=== PATIENT | female | born 1935 | race Caucasian/White ===

== ENCOUNTER → 2024-12-17 | Outpatient (CLI) | payer MEDICARE, BC, SELFPAY ==
[2024-12-17 14:08] LABS: Basophils # (Auto) 0.1 Thou/mm3 (0.0-0.2); Basophils % (Auto) 1 % (0-2.5); Eosinophils # (Auto) 0.8 Thou/mm3 (0.0-0.5); Eosinophils % (Auto) 12 % (0-10); Hematocrit 41.7 % (36.0-46.0); Immature Granulocytes % (Auto) 1 % (0-0); Immature Granulocytes Auto 0.05 Thou/mm3 (0.00-0.00); Lymphocytes # (Auto) 1.1 Thou/mm3 (1.0-4.8); Lymphocytes % (Auto) 18 % (10-50); Mean Corpuscular HGB Conc 31.2 g/dl (31.0-37.0); Mean Corpuscular Hemoglobin 27.8 pg (25.0-35.0); Mean Corpuscular Volume 89 fL (80-100); Monocytes # (Auto) 0.4 Thou/mm3 (0.0-0.8); Monocytes % (Auto) 6 % (0-12); Neutrophils # (Auto) 3.9 Thou/mm3 (1.8-7.7); Neutrophils % (Auto) 62 % (37-80); Nucleated Red Blood Cell % 0 /100 WBC (0); Platelet Count 244 Thou/mm3 (140-440); RDW Standard Deviation 43.6 fL (36.4-46.3); Red Blood Count 4.68 Miln/mm3 (4.00-5.20); White Blood Count 6.2 Thou/mm3 (3.6-11.0)
[2024-12-17 14:18] LABS: Glucose Estimated Average 151 mg/dL (80-131); Hemoglobin A1C 6.9 % Hgb (4.8-6.0)
[2024-12-17 14:24] LABS: Alanine Aminotransferase 17 U/L (10-49); Albumin, Serum 3.7 gm/dL (3.4-4.8); Alkaline Phosphatase 60 U/L (46-116); Anion Gap 9 (7-16); Aspartate Amino Transferase 12 U/L (0-34); BUN/Creatinine Ratio 32 Ratio (12-20); Bilirubin,Total 0.4 mg/dL (0.3-1.2); Blood Urea Nitrogen 19 mg/dL (9-23); Calcium 9.3 mg/dL (8.3-10.6); Calcium (Corrected) 9.5 mg/dL (8.5-10.1); Carbon Dioxide 29.2 mMol/L (20.0-31.0); Cardiac Risk Estimate 5.2 RATIO (3.7-5.6); Chloride 103 mMol/L (98-107); Cholesterol 181 mg/dL (132-200); Creatinine (Component) 0.6 mg/dL (0.6-1.3); Globulin 3.8 gm/dL (2.3-3.5); Glucose 156 mg/dL (74-106); HDL Cholesterol 35 mg/dL (40-60); LDL Cholesterol,Calculated 111 mg/dL (0-130); Osmolality,Calculated 286 (275-295); Potassium 3.7 mMol/L (3.4-5.1); Sodium 141 mMol/L (136-145); Thyroid Stimulating Hormone 0.98 uIU/mL (0.55-4.78); Total Protein 7.5 gm/dL (5.7-8.2); Triglycerides 175 mg/dL (30-150); Uric Acid 6.2 mg/dL (3.1-7.8); eGFR > 60 See Note
[2024-12-17 14:25] LABS: Vitamin B12 1008 pg/mL (211-911); Vitamin D 25 Hydroxy Total 41.2 ng/mL (7.3-40.2)
== END | disposition home or self-care (01) ==
PROVIDERS: PCP Internal Medicine; Referring Provider Internal Medicine; Visit Provider Internal Medicine
DX: Z00.00 Encounter for general adult medical examination without abnormal findings (principal); I10 Essential (primary) hypertension; E03.9 Hypothyroidism, unspecified; E78.5 Hyperlipidemia, unspecified
CPT/HCPCS: 36415; 80053; 80061; 81001; 82306; 82607; 83036; 84443; 84550; 85025

== ENCOUNTER 2025-04-29 17:57 | Inpatient (IN) | payer MEDICARE, BC, SELFPAY ==
[2025-04-29] VITALS (7 sets, daily range): BP systolic 99–130; BP diastolic 46–60; PULSE 77–86; RESP 14–18; TEMP 36.9–37.1; O2SAT 93–99
--- NOTE | 2025-04-29 18:45 | PD.EDNV ---
Nausea/Vomit./Diarrhea-RME/HPI General Chief complaint: Nausea/Vomiting/Diarrhea Stated complaint: NAUSEA, VOMITING, DIARRHEA Time Seen by Provider: 04/29/25 18:50 Arrival date/time: 04/29/25 17:57 Limitations: no limitations RME / HPI RME / HPI Narrative: Dr. Paez's Main ED Evaluation: 89yo female SANJU from home presents to the ED for complaints of N/V/D x 2 days. at bedside states the patient has been unable to keep anything down for the last 2 days and has been dry heaving. Patient denies any abdominal pain, UTI symptoms, fever, chills, or any other associated symptoms. NKA. Related Data Home Medications ?Medication ?Instructions ?Recorded ?Confirmed solifenacin 10 mg tablet (Vesicare) 10 mg PO QDAY 05/20/19 03/12/22 chlorthalidone 25 mg tablet 1 tab PO QAM 03/12/22 03/12/22 glipizide 5 mg tablet 1 tab PO BID 03/12/22 03/12/22 levothyroxine 75 mcg tablet 1 tab PO QDAY 03/12/22 03/12/22 metoprolol succinate 50 mg 1 tab PO QDAY 03/12/22 03/12/22 tablet,extended release 24 hr pantoprazole 20 mg tablet,delayed 1 tab PO QDAY 03/12/22 03/12/22 release potassium chloride 20 mEq 1 tab PO QDAY 03/12/22 03/12/22 tablet,extended release pregabalin 75 mg capsule 1 cap PO QDAY 03/12/22 03/12/22 sertraline 25 mg tablet 1 tab PO QDAY 03/12/22 03/12/22 Allergies Allergy/AdvReac Type Severity Reaction Status Date / Time NKA* Allergy Uncoded 05/20/19 09:14 Review of Systems Review of Systems Systems Reviewed: All systems reviewed, normal except as documented Past Medical History Past Medical History CARDIAC: Positive Cardiac Disorders and Hypertension; Negative Congestive Heart Failure RESPIRATORY: Negative Chronic Obstructive Pulmonary Disease (COPD) or Asthma GENITOURINARY: Negative Renal Disease ENDOCRINE: Positive Hypothyroidism; Negative Diabetes Mellitus Type 1 or Diabetes Mellitus Type 2 HEMATOLOGIC: Negative Sickle Cell Disease Social History SMOKING STATUS: Never smoker SUBSTANCE USE: does not use ED Exam General Limitations: Present no limitations General appearance: Present alert, in no apparent distress and other (appears fatigued, chronically ill, talking in full sentences) Head Head exam: Present atraumatic Eye Eye exam: Present normal appearance, PERRL and EOMI ENT ENT exam: Present normal exam, normal oropharynx and mucous membranes dry Neck Neck exam: Present normal inspection, full ROM and trachea midline Chest Chest inspection: Present normal inspection and symmetric chest wall rise Respiratory Respiratory exam: Present normal lung sounds bilaterally Cardiovascular Cardiovascular exam: Present regular rate, normal rhythm and normal heart sounds Abdominal Exam Abdominal exam: Present soft; Absent distention or tenderness Extremities Exam Extremities exam: Present normal inspection and full ROM; Absent pedal edema Back Exam Back exam: Present normal inspection and full ROM Neurological Exam Neurological exam: Present alert, oriented X3 and CN II-XII intact Psychiatric Psychiatric exam: Present normal affect and normal mood Skin Skin exam: Present warm, dry, intact and normal color; Absent pallor Course Quality Measures none Orders Category Date Time Status CXRP [XR chest 1V portable] Stat Exams 04/29/25 18:58 Completed CBC Stat Lab 04/29/25 18:25 Completed CMP [Comprehensive Metabolic Panel] Stat Lab 04/29/25 18:25 Completed Urinalysis Stat Lab 04/29/25 20:00 Completed Dextrose 50% Syr [D50w Syringe Abboject] Med 04/29/25 20:05 Discontinued 50 ml .ROUTE .STK-MED ONE Dextrose 50% Syr [D50w Syringe Abboject] Med 04/29/25 20:15 Discontinued 50 ml IVP X1 ONE Sodium Chloride 0.9% 1000 ml [Ns] 1,000 ml Med 04/29/25 18:51 Discontinued IV 999 mls/hr cefTRIAXone/D5w 1gm IV premix [Rocephin/D5w 1gm IV Med 04/29/25 22:54 Discontinued premix] 1 gm in 50 ml IV X1 Reevaluation(s) Reevaluation #1: Patient feels better after having some food, juice, and D50. Time: 21:27 Vital Signs Vital signs: Vital Signs Temperature 98.8 F 04/29/25 18:46 Pulse Rate 79 04/29/25 18:46 Respiratory Rate 16 04/29/25 18:46 Blood Pressure 99/51 L 04/29/25 18:46 Pulse Oximetry (%) 93 L 04/29/25 18:46 Oxygen Delivery Method Room Air 04/29/25 18:46 Nausea/Vomiting/Diarrhea MDM Narrative MDM Narrative:: Scribe Attestation: 04/29/25 Marcia Alfredo am scribing for and in the presence of Dr. Paez. 89-year-old female with history of diabetes, thyroid disease, hypertension, GERD presenting to the emergency department with her by EMS after inability to tolerate p.o. for the last 3 to 4 days. The patient also had vomiting and diarrhea. No blood per the . While in the emergency department the patient had an episode of hypoglycemia with her blood sugar dropped to 22. After D50 her blood sugar was 137 she was given some the eat. Her blood sugar then dropped again to 113. Glucose then dropped to 64. Her labs show that she has a white count, of mildly elevated at 12. Hematocrit is stable at 37. Sodium is normal at 134 mild hyperkalemia at 5.6 with CO2 of 15. Gap of 17 which is a slightly elevated. The patient was seen by the medicine team and a lactic acid was added. Lactic acid is 5.9 which is abnormal. Otherwise LFTs are essentially normal. The patient has a UTI. Chest x-ray with left lower lobe pneumonia. Patient was treated for community-acquired pneumonia with ceftriaxone and azithromycin. No peaked T waves on EKG. Patient did not meet sepsis criteria she is awake and alert and oriented x 3. Patient data External records reviewed:: [facility] previous records (Per chart review, patient was seen here on 03/12/22 for atypical chest pain.) Clinical information provided by:: patient and spouse Social determinants that could affect healthcare access:: none Patient has the following chronic illnesses:: HTN How is presenting disease/condition affected by chronic disease/condition?: uneffected by Evaluation data The following diagnostics were reviewed and interpreted by me:: lab results and radiology exam(s) Lab and/or radiology exams considered but not ordered:: none Interpretation Summary: WBC 12.3, Sodium 134, Potassium 5.7, Creatinine 3.0, Glucose 28. UA remarkable for positive leukocyte esterase, 498 RBCs, 1137 WBCs. [facility] Report Signed Patient: ALLIE ROMO [facility]. Record#: [id number] Birthdate: 1935 Age/Sex: 89 / F Location: [facility] Attending Dr: Ordering Physician: Cathy Gutiérrez MD Date of Service: 04/29/25 Procedure(s): XR chest 1V portable Accession Number(s): [id number] cc: Cedric Zamarripa MD; Cathy Gutiérrez MD; Colt Tinoco MD~ Examination bony degenerative single view TECHNIQUE: AP portable upright chest single view Date and time: April 29, 2025, 1910 hours Comparison March 12, 2022 INDICATIONS: Vomiting nausea and weakness today. FINDINGS: Atelectasis versus mild pneumonia left base Right lung clear. Normal heart size No pulmonary edema Prominent osteopenia IMPRESSION: Atelectasis versus mild pneumonia left base, clinical correlation advised Dictated By: Cedric Zamarripa MD Signed By: <Electronically signed by Cedric Zamarripa MD in OV> 04/29/251931 Medications / Prescriptions Medications / Prescriptions considered but not ordered:: none Medication administrations:: Medication Administration History Acetaminophen (Acetaminophen 325 Mg Tablet) 650 mg PO Q6H PRN PRN Reason: Fever >101.5 Stop: 05/29/25 23:56 Dextrose (Dextrose 50%-Water Inj 50 Ml Syringe) 25 ml IV Q15MIN PRN PRN Reason: BG 50-70 responsive npo pt Stop: 05/30/25 00:06 Dextrose (Dextrose 50%-Water Inj 50 Ml Syringe) 50 ml IV Q15MIN PRN PRN Reason: BG <50 OR BG <70 & pt unresponsive Stop: 05/30/25 00:06 Glucagon (Glucagon Inj 1 Mg Vial) 1 mg IM Q15MIN PRN PRN Reason: BG <70, and no IV access Heparin Sodium (Porcine) (Heparin Sod Inj 5000 Unit/Ml Vial) 5,000 unit SC Q8HR TAWNY Stop: 05/14/25 00:14 Last Admin: 04/30/25 01:02 Dose: 5,000 unit Documented By: RC Co-signed By: Ceftriaxone Sodium/Dextrose (Rocephin/D5w 1gm Iv Premix) 1 gm in 50 mls @ 100 mls/hr IV QDAY TAWNY Stop: 05/07/25 20:59 Dextrose (D10w) 500 mls @ 50 mls/hr IV .Q10H TAWNY Stop: 05/30/25 00:34 Last Admin: 04/30/25 01:06 Dose: 50 mls/hr Documented By: CATHERINE Co-signed By: Insulin Human Lispro (Insulin Lispro (Admelog) 1 Unit/0.01 Ml Unit) 0 unit SC ACHS TAWNY; Protocol Stop: 05/30/25 07:29 Levothyroxine Sodium (Levothyroxine Sodium 25 Mcg Tablet) 50 mcg PO ACBR TAWNY Stop: 05/30/25 05:59 Ondansetron HCl (Ondansetron Inj 2 Mg/Ml Inj 2 Ml) 4 mg IVP Q6H PRN; Protocol PRN Reason: NAUSEA OR VOMITING Stop: 05/29/25 23:56 Sertraline HCl (Sertraline Hcl 25 Mg Tablet) 25 mg PO HS [facility] Stop: 05/30/25 20:59 Sodium Bicarbonate (Sodium Bicarb Inj 8.4% 1 Meq/Ml 50 Ml Vial) 50 meq IV X1 ONE Stop: 04/30/25 02:00 Discontinued Medications Albuterol (Albuterol Rt 2.5 Mg/3 Ml Nebu) 2.5 mg INH X1 ONE Stop: 04/30/25 00:46 Last Admin: 04/30/25 01:10 Dose: Not Given Documented By: CATHERINE Non-Admin Reason: Discontinued Albuterol (Albuterol Rt 2.5 Mg/3 Ml Nebu) 5 mg INH X1 ONE Stop: 04/30/25 00:46 Last Admin: 04/30/25 01:47 Dose: 5 mg Documented By: CANDI Dextrose (Dextrose 50%-Water Inj 50 Ml Syringe) 50 ml IVP X1 ONE Stop: 04/29/25 20:16 Last Admin: 04/29/25 20:19 Dose: 50 ml Documented By: JOSE ALEJANDRO Dextrose (Dextrose 50%-Water Inj 50 Ml Syringe) Confirm Administered Dose 50 ml .ROUTE .STK-MED ONE Stop: 04/29/25 20:06 Last Admin: 04/29/25 20:18 Dose: Not Given Documented By: JOSE ALEJANDRO Non-Admin Reason: Duplicate Medication on eMAR Dextrose (Dextrose 50%-Water Inj 50 Ml Syringe) 50 ml IVP X1 ONE Stop: 04/30/25 00:51 Last Admin: 04/30/25 01:31 Dose: 50 ml Documented By: CATHERINE Sodium Chloride (Ns) 1,000 mls @ 999 mls/hr IV .Q1H1M ONE Stop: 04/29/25 19:51 Last Infusion: 04/29/25 20:09 Dose: Infused Documented By: JOSE ALEJANDRO Admin: 04/29/25 19:08 Dose: 999 mls/hr Documented By: WAI Ceftriaxone Sodium/Dextrose (Rocephin/D5w 1gm Iv Premix) 1 gm in 50 mls @ 100 mls/hr IV X1 ONE Stop: 04/29/25 23:23 Last Infusion: 04/30/25 01:10 Dose: Infused Documented By: Admin: 04/30/25 00:28 Dose: 100 mls/hr Documented By: CATHERINE Sodium Chloride (Ns) 1,000 mls @ 75 mls/hr IV .[id number] TAWNY Stop: 05/29/25 23:44 Last Admin: 04/30/25 00:37 Dose: Not Given Documented By: CATHERINE Non-Admin Reason: Discontinued Dextrose (D5w) 1,000 mls @ 75 mls/hr IV .[id number] [facility] Stop: 05/30/25 00:29 Last Admin: 04/30/25 00:37 Dose: Not Given Documented By: CATHERINE Non-Admin Reason: Discontinued Ceftriaxone Sodium/Dextrose (Rocephin/D5w 1gm Iv Premix) 1 gm in 50 mls @ 100 mls/hr IV QDAY [facility] Stop: 05/07/25 00:32 Last Admin: 04/30/25 00:44 Dose: Not Given Documented By: CATHERINE Non-Admin Reason: Discontinued Lactated Ringer's (Lactated Ringers) 1,000 mls @ 999 mls/hr IV .Q1H1M ONE Stop: 04/30/25 01:54 Insulin Human Regular (Insulin Hum Regular 1 Unit/0.01 Ml (Per Unit)) 5 unit SC X1 ONE Stop: 04/30/25 00:46 Last Admin: 04/30/25 01:04 Dose: Not Given Documented By: CATHERINE Non-Admin Reason: Discontinued Sodium Polystyrene Sulfonate (Sod Polystyrene Sulfon Susp 15 Gm/60 Ml Btl) 30 gm PO X1 ONE Stop: 04/30/25 00:46 Last Admin: 04/30/25 01:26 Dose: 30 gm Documented By: CATHERINE see above Consultations Consultation(s) initiated? (list below): Yes Consultation #1 (Physician, Specialty, Details): Discussed case with the resident physician, attending Dr. Boyd from Hospitalist service regarding admission. Discussed patients ED course, exam findings, labs, and radiology results. The Hospitalist agrees to accept the patient for admission. Time: 23:01 Diagnosis Nausea Differential Diagnosis: food poisoning, gastroenteritis, dehydration and other (electrolyte abnormality, UTI, pneumonia) Most likely diagnosis given after review of the tests above:: UTI, dehydration, acute renal failure, hypoglycemia, pneumonia Admission Indicated Admission indicated?: indicated Admission Request Was there a request for admission?: Yes Admission Attestation Admission request attestation: Discussed case with [] from Hospitalist service regarding admission. Discussed patients ED course, exam findings, labs, and radiology results. The Hospitalist [agrees,declines] to accept the patient for admission. Disposition Plan Disposition Plan: Admit Critical Care Time Critical Care Time Critical Care Time: Yes Total Critical Care Time (min.): 35 Attestation: The high probability of sudden, clinically significant deterioration in the patient?s condition required the highest level of my preparedness to intervene urgently. The services I provided to this patient were to treat and/or prevent clinically significant deterioration. Services included the following: chart data review, reviewing nursing notes and/or old charts, documentation time, apprenticeship consultant collaboration regarding findings and treatment options, medication orders and management, direct patient care, vital sign assessments and ordering, interpreting and reviewing diagnostic studies and lab tests. Aggregate critical care time includes only time during which I was engaged in work directly related to the patient?s care, as described above, whether at bedside or elsewhere in the Emergency Department. It did not include time spent performing other reported procedures or the services of residents, students, nurses or physician assistants. Discharge Plan Plan Patient Disposition: Admit Acute Care w/in Hospital Patient condition on transfer: Stable Problem List Clinical Impression: Dehydration, UTI (urinary tract infection), Acute renal failure (ARF), Pneumonia, Recurrent severe hypoglycemia
--- NOTE | 2025-04-29 18:58 | XR_ITS ---
Examination bony degenerative single view TECHNIQUE: AP portable upright chest single view Date and time: April 29, 2025, 1910 hours Comparison March 12, 2022 INDICATIONS: Vomiting nausea and weakness today. FINDINGS: Atelectasis versus mild pneumonia left base Right lung clear. Normal heart size No pulmonary edema Prominent osteopenia IMPRESSION: Atelectasis versus mild pneumonia left base, clinical correlation advised
[2025-04-29] MEDS: SODIUM CHLORIDE 0.9% 1000 ML 1,000 ML 999 ML IV (19:08)
[2025-04-29 19:24] LABS: Basophils # (Auto) 0.0 Thou/mm3 (0.0-0.2); Basophils % (Auto) 0 % (0-2.5); Eosinophils # (Auto) 0.0 Thou/mm3 (0.0-0.5); Eosinophils % (Auto) 0 % (0-10); Hematocrit 37.8 % (36.0-46.0); Hemoglobin 11.9 g/dL (12.0-16.0); Immature Granulocytes Auto 0.13 Thou/mm3 (0.00-0.00); Lymphocytes # (Auto) 0.6 Thou/mm3 (1.0-4.8); Lymphocytes % (Auto) 5 % (10-50); Mean Corpuscular HGB Conc 31.5 g/dl (31.0-37.0); Mean Corpuscular Hemoglobin 27.4 pg (25.0-35.0); Mean Corpuscular Volume 87 fL (80-100); Monocytes # (Auto) 0.8 Thou/mm3 (0.0-0.8); Monocytes % (Auto) 6 % (0-12); Neutrophils # (Auto) 10.8 Thou/mm3 (1.8-7.7); Neutrophils % (Auto) 87 % (37-80); Nucleated Red Blood Cell # 0.00 Thou/mm3 (0.00-0.00); Nucleated Red Blood Cell % 0 /100 WBC (0); Platelet Count 310 Thou/mm3 (140-440); RDW Standard Deviation 45.3 fL (36.4-46.3); Red Blood Count 4.35 Miln/mm3 (4.00-5.20); White Blood Count 12.3 Thou/mm3 (3.6-11.0)
[2025-04-29 19:53] LABS: Alanine Aminotransferase 18 U/L (10-49); Albumin, Serum 3.7 gm/dL (3.4-4.8); Albumin/Globulin Ratio 1.0 (1.2-2.2); Alkaline Phosphatase 49 U/L (46-116); Anion Gap 18 (7-16); Aspartate Amino Transferase 23 U/L (0-34); BUN/Creatinine Ratio 20 Ratio (12-20); Bilirubin,Total < 0.2 mg/dL (0.3-1.2); Blood Urea Nitrogen 59 mg/dL (9-23); Calcium 9.3 mg/dL (8.3-10.6); Calcium (Corrected) 9.5 mg/dL (8.5-10.1); Carbon Dioxide 17.0 mMol/L (20.0-31.0); Chloride 99 mMol/L (98-107); Creatinine (Component) 3.0 mg/dL (0.6-1.3); Globulin 3.6 gm/dL (2.3-3.5); Osmolality,Calculated 280 (275-295); Potassium 5.7 mMol/L (3.4-5.1); Sodium 134 mMol/L (136-145); Total Protein 7.3 gm/dL (5.7-8.2); eGFR 15 See Note
[2025-04-29 20:05] LABS: Collection Type, Urine Catheter
[2025-04-29 20:09] LABS: Glucose 28 mg/dL (74-106)
[2025-04-29] MEDS: DEXTROSE 50%-WATER INJ 50 ML SYRINGE IVP (20:19)
[2025-04-29 20:23] LABS: Bilirubin,Urine Negative (Negative); Blood,Urine 3+ (Negative); Glucose, Urine Negative (Negative); Ketones,Urine Negative (Negative); Leukocyte Esterase,Urine Positive (Negative); Nitrite,Urine Negative (Negative); PH,Urine 6.0 (5.0-7.0); Protein,Urine 3+ (Neg - Trace); RBC,Urine 498 /hpf (0-3); Specific Gravity,Urine 1.020 (1.001-1.035); Squamous Epithelial Cell,Urine 16 /hpf (0-5); Urobilinogen,Urine 2.0 mg/dL (0.0-1.0); WBC,Urine 1137 /hpf (0-5)
--- NOTE | 2025-04-29 20:25 | PC.NURSE ---
assisted RN with donavan care, brief change and straight cath. pt repositioned for comfort. at bedside
[2025-04-29 20:33] LABS: Clarity,Urine Turbid (Clear/Hazy); Color,Urine Orange (Lt Yel-Yel)
[2025-04-30] VITALS (93 sets, daily range): BP systolic 87–204; BP diastolic 30–121; PULSE 79–110; RESP 3–27; TEMP 36.4–37; O2SAT 89–98; BMI 31.9; BMI 31.3
--- NOTE | 2025-04-30 00:03 | PD.RESPRO ---
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 Also has not been able to eat and drink for the past 2 days. Denies dysuria, coughing, fever. No sick contacts. ED Course: -Initial vitals were BP 99/51, HR 79, RR 16, temp 98.8 F, 93% on room air -Labs significant for WBC 12.3, hemoglobin 11.9, sodium 134, potassium 5.7,, bicarb 17 -Imaging included -In the ED, patient was given -Patient was admitted for Review of Systems Review of systems otherwise negative except what is mentioned above. Past Medical History: as above Family History: not pertinent Surgical History: hysterectomy (hx of endometriosis), bilateral lumpectomy (hx breast cancer), cholecystectomy Social History: Denies history of smoking, denies current alcohol use, denies recreational drug use Current Medications: (Source: ) Allergies: No known drug allergies Exam Vital Signs Temp Pulse Resp BP Pulse Ox O2 Del Method 98.4 F 80 18 117/60 95 Room Air 04/29/25 21:12 04/29/25 21:12 04/29/25 21:12 04/29/25 21:12 04/29/25 21:12 04/29/25 20:18 Objective Labs 04/29/25 18:25 04/29/25 18:25 Labs: Laboratory Results - last 24 hr 04/29/25 04/29/25 18:25 20:00 WBC 12.3 H RBC 4.35 Hgb 11.9 L Hct 37.8 MCV 87 MCH 27.4 MCHC 31.5 RDW Std Deviation 45.3 Plt Count 310 Neut % (Auto) 87 H Lymph % (Auto) 5 L [place] % (Auto) 6 Eos % (Auto) 0 Baso % (Auto) 0 Neut # (Auto) 10.8 H Lymph # (Auto) 0.6 L [place] # (Auto) 0.8 Eos # (Auto) 0.0 Baso # (Auto) 0.0 Immature Gran # (Auto) 0.13 H Absolute Nucleated RBC 0.00 Immature Gran % 1 H Nucleated RBC % 0 Sodium 134 L Potassium 5.7 H Chloride 99 Carbon Dioxide 17.0 L Anion Gap 18 H BUN 59 H Creatinine 3.0 H Estim Creat Clear Calc Not Performed. eGFR 15 L BUN/Creatinine Ratio 20 Glucose 28 L* Calculated Osmolality 280 Calcium 9.3 Corrected Calcium 9.5 Total Bilirubin < 0.2 L AST 23 ALT 18 Alkaline Phosphatase 49 Total Protein 7.3 Albumin 3.7 Globulin 3.6 H Albumin/Globulin Ratio 1.0 L Ur Collection Type Catheter Urine Color [place] A Urine Clarity Turbid A Urine pH 6.0 Ur Specific [place] 1.020 Urine Protein 3+ A Urine Glucose (UA) Negative Urine Ketones Negative Urine Blood 3+ A Urine Nitrite Negative Urine Bilirubin Negative Urine Urobilinogen (Auto) 2.0 Ur Leukocyte Esterase Positive Urine RBC 498 H Urine WBC 1137 H Ur Squamous Epith Cells 16 H Urine Bacteria None Quality Measures Quality Measures none Assessment & Plan Assessment Current Active Medications: Generic Name Dose Route Start Last Admin Trade Name Freq PRN Reason Stop Dose Admin Acetaminophen 650 mg 04/29/25 23:57 Acetaminophen 325 Mg Tablet PO 05/29/25 23:56 Q6H PRN Fever >101.5 Heparin Sodium (Porcine) 5,000 unit 04/30/25 00:15 Heparin Sod Inj 5000 Unit/Ml Vial SC 05/14/25 00:14 Q8HR TAWNY Sodium Chloride 1,000 mls @ 75 mls/hr 04/29/25 23:45 Ns IV 05/29/25 23:44 .[id number] [facility] Ondansetron HCl 4 mg 04/29/25 23:57 Ondansetron Inj 2 Mg/Ml Inj 2 Ml IVP 05/29/25 23:56 Q6H PRN NAUSEA OR VOMITING Protocol
--- NOTE | 2025-04-30 00:21 | PC.NURSE ---
PT AWAKE AND ALERT, PT GIVEN PUDDING AND JUICE AT THIS TIME
[2025-04-30] MEDS: cefTRIAXone/D5w 1gm IV premix 1 GM/50 ML BAG IV ×2 (00:28→14:20)
[2025-04-30 00:43] LABS: Base Excess, Venous -9 (-3-3); O2 Saturation, Venous 54 % (96-97); PCO2, Venous 38 mmHg (36-56); PO2, Venous 31 mmHg (15-58); pH, Venous 7.27 (7.33-7.66)
[2025-04-30 00:52] LABS: Lactate (Lactic Acid) 5.9 mMol/L (0.4-2.0)
[2025-04-30] MEDS: HEPARIN SOD INJ 5000 UNIT/ML VIAL SC ×3 (01:02→14:17)
[2025-04-30 01:03] LABS: Anion Gap 17 (7-16); BUN/Creatinine Ratio 15 Ratio (12-20); Blood Urea Nitrogen 50 mg/dL (9-23); Calcium 8.5 mg/dL (8.3-10.6); Carbon Dioxide 15.8 mMol/L (20.0-31.0); Chloride 101 mMol/L (98-107); Creatinine (Component) 3.4 mg/dL (0.6-1.3); Estimated Creatinine Clearance 11.8 mL/min (>60); Glucose 64 mg/dL (74-106); Osmolality,Calculated 279 (275-295); Potassium 5.6 mMol/L (3.4-5.1); Sodium 134 mMol/L (136-145); eGFR 13 See Note
[2025-04-30] MEDS: DEXTROSE 10%-WATER 500 ML 50 ML IV (01:06)
--- NOTE | 2025-04-30 01:11 | PD.RESHP ---
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 Also has not been able to eat and drink for the past 2 days. Denies dysuria, coughing, fever. No sick contacts. Patient denies history of cardiac or renal disease. Patient is bedbound with neurogenic bladder, wears diaper. Also has upper extremity weakness due to bilateral shoulder pain. PCP is Dr. Tinoco and casino enforcement agent Dr. Livingston. ED Course: -Initial vitals were BP 99/51, HR 79, RR 16, temp 98.8 F, 93% on room air -Labs significant for WBC 12.3, hemoglobin 11.9, sodium 134, potassium 5.7, anion gap 18, glucose 28, BUN 59, creatinine 3.0 -Imaging included CXR showed atelectasis versus mild pneumonia left base. -In the ED, patient was given NS 1 L IV x 1, dextrose 50 mL x 1, ceftriaxone 1 g x 1 -Patient was admitted for severe hypoglycemia with high anion metabolic acidosis Review of Systems Review of systems otherwise negative except what is mentioned above. Past Medical History: as above Family History: not pertinent Surgical History: hysterectomy (hx of endometriosis), bilateral lumpectomy (hx breast cancer), cholecystectomy Social History: Denies history of smoking, denies current alcohol use, denies recreational drug use. Lives at home with , has [facility] daily from 9-5. Current Medications: Metoprolol XL 50 mg, chlorthalidone 25 mg, glipizide 5 mg twice daily, metformin 500 mg twice daily, torsemide 20 mg daily, potassium chloride ER 20 mg daily, sertraline 25 mg daily, levothyroxine 50 mcg a.m., Protonix 20 mg daily, Tylenol, tramadol 50 mg x 1 as needed for pain (Source: Medication list) Allergies: No known drug allergies Exam Vital Signs Temp Pulse Resp BP Pulse Ox O2 Del Method 97.6 F 79 16 107/47 L 96 Room Air 04/30/25 00:56 04/30/25 00:56 04/30/25 00:56 04/30/25 00:56 04/30/25 00:56 04/30/25 00:56 Narrative Exam Physical Exam General: Awake and in no acute distress. Conversational and non-toxic appearing. Sitting up in bed. HEENT: Normocephalic, atraumatic, mucous membranes moist. Heart: Regular rate and rhythm, normal S1 and S2, no murmurs appreciated. Lungs: Clear to auscultation with no wheezing or crackles. Abdomen: Soft, nondistended, nontender, positive bowel sounds. No guarding or rebound tenderness. Neurologic: Alert and oriented x3, no gross neurological deficit, and patient able to move all 4 extremities. Extremities: No edema. Skin: No rash or ecchymoses. Results: Labs 04/30/25 04:48 04/30/25 04:48 Labs: Short CBC 04/29/25 Range/Units 18:25 WBC 12.3 H (3.6-11.0) Thou/mm3 Hgb 11.9 L (12.0-16.0) g/dL Hct 37.8 (36.0-46.0) % Plt Count 310 (140-440) Thou/mm3 BMP 04/29/25 04/30/25 18:25 00:38 Sodium 134 L 134 L Potassium 5.7 H 5.6 H Chloride 99 101 Carbon Dioxide 17.0 L 15.8 L BUN 59 H 50 H Creatinine 3.0 H 3.4 H Glucose 28 L* 64 L D Calcium 9.3 8.5 Liver Function 04/29/25 Range/Units 18:25 Total Bilirubin < 0.2 L (0.3-1.2) mg/dL AST 23 (0-34) U/L ALT 18 (10-49) U/L Alkaline Phosphatase 49 (46-116) U/L Albumin 3.7 (3.4-4.8) gm/dL Urine 04/29/25 Range/Units 20:00 Urine Color [place] A (Lt Yel-Yel) Urine Clarity Turbid A (Clear/Hazy) Urine pH 6.0 (5.0-7.0) Ur Specific [place] 1.020 (1.001-1.035) Urine Protein 3+ A (Neg - Trace) Urine Glucose (UA) Negative (Negative) ABG Interpretation ABG results: 04/30/25 00:38 VBG pH 7.27 L VBG pCO2 38 VBG pO2 31 VBG Base Excess -9 L Quality Measures Quality Measures none Advance care planning discussed with:: patient Medications Home Medications and Allergies Home Medications ?Medication ?Instructions ?Recorded ?Confirmed ?Type solifenacin 10 mg tablet (Vesicare) 10 mg PO QDAY 05/20/19 03/12/22 History chlorthalidone 25 mg tablet 1 tab PO QAM 03/12/22 03/12/22 History glipizide 5 mg tablet 1 tab PO BID 03/12/22 03/12/22 History levothyroxine 75 mcg tablet 1 tab PO QDAY 03/12/22 03/12/22 History metoprolol succinate 50 mg 1 tab PO QDAY 03/12/22 03/12/22 History tablet,extended release 24 hr pantoprazole 20 mg tablet,delayed 1 tab PO QDAY 03/12/22 03/12/22 History release potassium chloride 20 mEq 1 tab PO QDAY 03/12/22 03/12/22 History tablet,extended release pregabalin 75 mg capsule 1 cap PO QDAY 03/12/22 03/12/22 History sertraline 25 mg tablet 1 tab PO QDAY 03/12/22 03/12/22 History Allergies Allergy/AdvReac Type Severity Reaction Status Date / Time NKA* Allergy Uncoded 05/20/19 09:14 Visit Medications Acetaminophen (Acetaminophen 325 Mg Tablet) 650 mg PO Q6H PRN PRN Reason: Fever >101.5 Stop: 05/29/25 23:56 Dextrose (Dextrose 50%-Water Inj 50 Ml Syringe) 25 ml IV Q15MIN PRN PRN Reason: BG 50-70 responsive npo pt Stop: 05/30/25 00:06 Dextrose (Dextrose 50%-Water Inj 50 Ml Syringe) 50 ml IV Q15MIN PRN PRN Reason: BG <50 OR BG <70 & pt unresponsive Stop: 05/30/25 00:06 Glucagon (Glucagon Inj 1 Mg Vial) 1 mg IM Q15MIN PRN PRN Reason: BG <70, and no IV access Heparin Sodium (Porcine) (Heparin Sod Inj 5000 Unit/Ml Vial) 5,000 unit SC Q8HR [facility] Stop: 05/14/25 00:14 Last Admin: 04/30/25 01:02 Dose: 5,000 unit Ceftriaxone Sodium/Dextrose (Rocephin/D5w 1gm Iv Premix) 1 gm in 50 mls @ 100 mls/hr IV QDAY [facility] Stop: 05/07/25 20:59 Dextrose (D10w) 500 mls @ 50 mls/hr IV .Q10H TAWNY Stop: 05/30/25 00:34 Last Admin: 04/30/25 01:06 Dose: 50 mls/hr Lactated Ringer's (Lactated Ringers) 1,000 mls @ 999 mls/hr IV .Q1H1M ONE Stop: 04/30/25 01:54 Insulin Human Lispro (Insulin Lispro (Admelog) 1 Unit/0.01 Ml Unit) 0 unit SC [facility]; Protocol Stop: 05/30/25 07:29 Ondansetron HCl (Ondansetron Inj 2 Mg/Ml Inj 2 Ml) 4 mg IVP Q6H PRN; Protocol PRN Reason: NAUSEA OR VOMITING Stop: 05/29/25 23:56 Discontinued Medications Albuterol (Albuterol Rt 2.5 Mg/3 Ml Nebu) 2.5 mg INH X1 ONE Stop: 04/30/25 00:46 Last Admin: 04/30/25 01:10 Dose: Not Given Albuterol (Albuterol Rt 2.5 Mg/3 Ml Nebu) 5 mg INH X1 ONE Stop: 04/30/25 00:46 Dextrose (Dextrose 50%-Water Inj 50 Ml Syringe) 50 ml IVP X1 ONE Stop: 04/29/25 20:16 Last Admin: 04/29/25 20:19 Dose: 50 ml Dextrose (Dextrose 50%-Water Inj 50 Ml Syringe) 50 ml IVP X1 ONE Stop: 04/30/25 00:51 Sodium Chloride (Ns) 1,000 mls @ 999 mls/hr IV .Q1H1M ONE Stop: 04/29/25 19:51 Last Infusion: 04/29/25 20:09 Dose: Infused Ceftriaxone Sodium/Dextrose (Rocephin/D5w 1gm Iv Premix) 1 gm in 50 mls @ 100 mls/hr IV X1 ONE Stop: 04/29/25 23:23 Last Infusion: 04/30/25 01:10 Dose: Infused Sodium Chloride (Ns) 1,000 mls @ 75 mls/hr IV .[id number] [facility] Stop: 05/29/25 23:44 Last Admin: 04/30/25 00:37 Dose: Not Given Dextrose (D5w) 1,000 mls @ 75 mls/hr IV .[id number] [facility] Stop: 05/30/25 00:29 Last Admin: 04/30/25 00:37 Dose: Not Given Ceftriaxone Sodium/Dextrose (Rocephin/D5w 1gm Iv Premix) 1 gm in 50 mls @ 100 mls/hr IV QDAY [facility] Stop: 05/07/25 00:32 Last Admin: 04/30/25 00:44 Dose: Not Given Insulin Human Regular (Insulin Hum Regular 1 Unit/0.01 Ml (Per Unit)) 5 unit SC X1 ONE Stop: 04/30/25 00:46 Last Admin: 04/30/25 01:04 Dose: Not Given Sodium Polystyrene Sulfonate (Sod Polystyrene Sulfon Susp 15 Gm/60 Ml Btl) 30 gm PO X1 ONE Stop: 04/30/25 00:46 Assessment & Plan Plan Patient is an 89-year-old female with past medical history of peripheral neuropathy (paralyzed from the waist down), breast cancer status post bilateral lumpectomy 25 years ago, hypothyroidism, neurogenic bladder, PAH, DM2 [id number], and hypertension who presented on 04/29 for chief complaint of nausea/dry heaving and diarrhea, admitted for lactic acidosis with high anion gap metabolic acidosis with severe hypoglycemia and KALLI. #Severe hypoglycemia Glucose 28 on admission, status post IV dextrose 50 x 2 and IV dextrose 500 at 50 cc/h. Likely secondary to not eating or drinking for the past 2 days. Home medications include glipizide and metformin, may precipitate if patient was still taking medication without eating. Follows Dr. Tinoco (PCP). -Consulted ICU, will likely transfer to monitor blood glucose every hour -Started D10W #Lactic acidosis #High anion gap metabolic acidosis Lactic acid elevated 5.9, bicarb 17, anion gap 18. Possibly secondary to medications (on metformin and glipizide) versus KALLI versus infection (does not meet sepsis criteria). VBG pH 7.27, PCO2 38, pO2 31. No compensated respiratory alkalosis. - Started on LR 1 L for fluid resuscitation -Consider starting on bicarb - Continue to monitor #KALLI Creatinine 3.0 on admission. No history of kidney disease. Likely prerenal as patient has not been eating or drinking for the past 2 days. -Continue IV hydration -Avoid nephrotoxins -Monitor renal panel -Renally dosed medications -Hold any RICHARD/ARB/diuretics -Consult nephrology, appreciate recommendations #Hyperkalemia Potassium 5.7. Likely secondary to KALLI versus medication (torsemide 20 mg every other day). - Status post Kayexalate and albuterol - Repeat potassium at 3 AM #Asymptomatic pyuria #Concern for UTI UA on admission positive for leukocyte esterase, negative nitrate, RBC 498, WBC 1137, no bacteria however will treat empirically. Patient is asymptomatic. - Pending blood culture - Pending urine culture - IV ceftriaxone 1 g (04/30- #Hyperphosphatemia Likely secondary to KALLI. - Ordered Sevelamer - Continue to monitor #DM2, [id number] #Depression #Hypothyroidism - Resume home meds: Levothyroxine and sertraline - Hold home glipizide and metformin - SSI once stable #Peripheral neuropathy #Paralysis of lower extremities #Bedbound #Urinary incontinence Wears diaper. No home medications for neuropathy. #Pulmonary artery hypertension Noted on previous CTA in February 2022. Patient is not taking medications for PAH however is on chlorthalidone as needed for hypertension. -Hold diuresis at this time - Consider consulting cardiology Dr. Livingston Health Maintenance Disposition: Consult ICU, likely transfer for further management of severe hypoglycemia and lactic acidosis with high anion gap metabolic acidosis DVT prophylaxis: Heparin GI prophylaxis: None Diet: Clear liquid, advance diet as tolerated CODE STATUS: DNR Patient plan of care was discussed with the attending physician, Dr. Boyd. Argelia Maier, PGY-1 Attending Provider Attestation/Addendum Attending Provider Attestation/Addendum After examination of the patient and review of the clinical data I feel that this patient needs admission to the hospital for further treatment/evaluation. Critical care time spent on evaluation and formulating a plan of care 45 minutes. Attending Provider Attestation/Addendum I attest that I was physically present for the evaluation, physical examination, lab and imaging review of the patient with the residents. I discussed the case with the residents and agree with the findings and plans of care as documented above. Daija oByd MD
[2025-04-30 01:14] LABS: Glucose Estimated Average 120 mg/dL (80-131); Hemoglobin A1C 5.8 % Hgb (4.8-6.0)
[2025-04-30 01:21] LABS: Magnesium 1.9 mg/dL (1.6-2.6); Phosphorous 8.2 mg/dL (2.4-5.1)
--- NOTE | 2025-04-30 01:24 | ESCONSULT_ITS ---
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 She also reported to have some chills. stated that patient has been having decreased p.o. intake. Endorses having chills. She denies any dysuria, coughing, chest pain, shortness of breath. She also reported to have shoulder pain and weakness in upper extremity. She follows Dr Tinoco as outpatient who is her primary care doctor. ED course: In the ED, patient was hypotensive blood pressure 99/51, heart rate 79, respiratory 16 and afebrile. She was saturating well on room air. Labs showed white count 12.3, hemoglobin 11.9, platelet count 310. Coagulation panel was not checked. Chemistry panel showed hyponatremia sodium 134, potassium 5.7/hyperkalemia, chloride 91, bicarb 17. Anion gap 18, BUN 59 creatinine 3.0--> 3.4. GFR 13. Blood glucose was initially 28--> 64. A1c 5.8, lactic acid 5.9 phosphorus 8.2 magnesium 1.9. Liver enzymes normal. Total bilirubin normal. Urinalysis was orange turbid with proteinuria, blood, RBCs, pyuria 1137, squamous epithelial cells. No bacteria. Chest x-ray showed atelectasis versus mild pneumonia left base. Patient received Rocephin, 1 L NS, initially was started on D5 switched to D10 due to persistently low blood glucose and was admitted on floors however due to persistent hypoglycemia patient was upgraded to ICU for blood sugar checks every hourly. For hyperkalemia, Kayexalate, breathing treatments were ordered. PMH: As above PSH: Hysterectomy due to endometriosis at the age of 26, right breast lumpectomy post cancer no chemo or radiation given, cholecystectomy SH: Denies smoking or drinking alcohol. No history of illicit drug use. Patient lives with her . Bedbound. Allergies: No known drug allergies Current medications: Metoprolol XL 50 mg, chlorthalidone 25 mg, glipizide 5 mg twice daily, metformin 500 mg twice daily, torsemide 20 mg daily, potassium chloride ER 20 mg daily, sertraline 25 mg daily, levothyroxine 50 mcg a.m., Protonix 20 mg daily, Tylenol, tramadol 50 mg x 1 as needed for pain Patient is admitted for hypoglycemia, lactic acidosis with high anion gap metabolic acidosis with KALLI related to metformin/dehydration and UTI. cc:: cc: Daija Boyd MD Review of Systems Review of Systems Systems Reviewed: All systems reviewed, normal except as documented Past Medical History Past Medical History CARDIAC: Positive Cardiac Disorders and Hypertension; Negative Congestive Heart Failure RESPIRATORY: Negative Chronic Obstructive Pulmonary Disease (COPD) or Asthma GENITOURINARY: Negative Renal Disease ENDOCRINE: Positive Hypothyroidism; Negative Diabetes Mellitus Type 1 or Diabetes Mellitus Type 2 HEMATOLOGIC: Negative Sickle Cell Disease Social History SMOKING STATUS: Never smoker SUBSTANCE USE: does not use Exam Vital Signs Temp Pulse Resp BP Pulse Ox O2 Del Method 97.6 F 79 16 107/47 L 96 Room Air 04/30/25 00:56 04/30/25 00:56 04/30/25 00:56 04/30/25 00:56 04/30/25 00:56 04/30/25 00:56 Narrative Exam GENERAL APPEARANCE: Elderly female in no acute distress. Saturating well on room air. HEENT: NC, AT. MMM. EOMI, clear conjunctiva, oropharynx clear. NECK: Supple without lymphadenopathy. No stiffness or restricted ROM. HEART: Regular rate and regular rhythm, normal S1/S2, no m/r/g LUNGS: CTAB, moving air well. No crackles or wheezes are heard. ABDOMEN: Soft, nontender, nondistended with good bowel sounds heard. BACK: No CVAT, no obvious deformity. EXTREMITIES: Without cyanosis, clubbing or edema. NEUROLOGICAL: Grossly nonfocal. Alert and oriented, moving all 4 extremities. CN not formally tested but appear grossly intact. Observed to ambulate with normal gait. Skin: Warm and dry without any rash. Psych: Appropriate mood and affect Results Labs 04/30/25 04:48 04/30/25 04:48 Labs: Short CBC 04/29/25 Range/Units 18:25 WBC 12.3 H (3.6-11.0) Thou/mm3 Hgb 11.9 L (12.0-16.0) g/dL Hct 37.8 (36.0-46.0) % Plt Count 310 (140-440) Thou/mm3 BMP 04/29/25 04/30/25 18:25 00:38 Sodium 134 L 134 L Potassium 5.7 H 5.6 H Chloride 99 101 Carbon Dioxide 17.0 L 15.8 L BUN 59 H 50 H Creatinine 3.0 H 3.4 H Glucose 28 L* 64 L D Calcium 9.3 8.5 Liver Function 04/29/25 Range/Units 18:25 Total Bilirubin < 0.2 L (0.3-1.2) mg/dL AST 23 (0-34) U/L ALT 18 (10-49) U/L Alkaline Phosphatase 49 (46-116) U/L Albumin 3.7 (3.4-4.8) gm/dL Urine 04/29/25 Range/Units 20:00 Urine Color Cochran A (Lt Yel-Yel) Urine Clarity Turbid A (Clear/Hazy) Urine pH 6.0 (5.0-7.0) Ur Specific [place] Gap 1.020 (1.001-1.035) Urine Protein 3+ A (Neg - Trace) Urine Glucose (UA) Negative (Negative) ABG Interpretation ABG results: 04/30/25 00:38 VBG pH 7.27 L VBG pCO2 38 VBG pO2 31 VBG Base Excess -9 L Quality Measures Quality Measures VTE prophylaxis (Heparin subcu) Advance care planning discussed with:: patient Medications Home Medications and Allergies Home Medications ?Medication ?Instructions ?Recorded ?Confirmed ?Type solifenacin 10 mg tablet (Vesicare) 10 mg PO QDAY 04/3003/12/22 History chlorthalidone 25 mg tablet 1 tab PO QAM 03/12/2202/27 History glipizide 5 mg tablet 1 tab PO BID 03/12/22 History levothyroxine 75 mcg tablet 1 tab PO QDAY 03/12/22 History metoprolol succinate 50 mg 1 tab PO QDAY 03/12/2202/27 History tablet,extended release 24 hr pantoprazole 20 mg tablet,delayed 1 tab PO QDAY 03/12/22 History release potassium chloride 20 mEq 1 tab PO QDAY 03/12/2203/12 History tablet,extended release pregabalin 75 mg capsule 1 cap PO QDAY 03/12/2203/12 History sertraline 25 mg tablet 1 tab PO QDAY 03/12/2203/12 History Allergies Allergy/AdvReac Type Severity Reaction Status Date / Time NKA* Allergy Uncoded 05/20/19 09:14 Visit Medications Acetaminophen (Acetaminophen 325 Mg Tablet) 650 mg PO Q6H PRN PRN Reason: Fever >101.5 Stop: 05/29/25 23:56 Dextrose (Dextrose 50%-Water Inj 50 Ml Syringe) 25 ml IV Q15MIN PRN PRN Reason: BG 50-70 responsive npo pt Stop: 05/30/25 00:06 Dextrose (Dextrose 50%-Water Inj 50 Ml Syringe) 50 ml IV Q15MIN PRN PRN Reason: BG <50 OR BG <70 & pt unresponsive Stop: 05/30/25 00:06 Glucagon (Glucagon Inj 1 Mg Vial) 1 mg IM Q15MIN PRN PRN Reason: BG <70, and no IV access Heparin Sodium (Porcine) (Heparin Sod Inj 5000 Unit/Ml Vial) 5,000 unit SC Q8HR TAWNY Stop: 05/14/25 00:14 Last Admin: 04/30/25 01:02 Dose: 5,000 unit Ceftriaxone Sodium/Dextrose (Rocephin/D5w 1gm Iv Premix) 1 gm in 50 mls @ 100 mls/hr IV QDAY TAWNY Stop: 05/07/25 20:59 Dextrose (D10w) 500 mls @ 50 mls/hr IV .Q10H TAWNY Stop: 05/30/25 00:34 Last Admin: 04/30/25 01:06 Dose: 50 mls/hr Lactated Ringer's (Lactated Ringers) 1,000 mls @ 999 mls/hr IV .Q1H1M ONE Stop: 04/30/25 01:54 Insulin Human Lispro (Insulin Lispro (Admelog) 1 Unit/0.01 Ml Unit) 0 unit SC ACHS [facility]; Protocol Stop: 05/30/25 07:29 Levothyroxine Sodium (Levothyroxine Sodium 25 Mcg Tablet) 50 mcg PO ACBR [facility] Stop: 05/30/25 05:59 Ondansetron HCl (Ondansetron Inj 2 Mg/Ml Inj 2 Ml) 4 mg IVP Q6H PRN; Protocol PRN Reason: NAUSEA OR VOMITING Stop: 05/29/25 23:56 Sertraline HCl (Sertraline Hcl 25 Mg Tablet) 25 mg PO HS [facility] Stop: 05/30/25 20:59 Discontinued Medications Albuterol (Albuterol Rt 2.5 Mg/3 Ml Nebu) 2.5 mg INH X1 ONE Stop: 04/30/25 00:46 Last Admin: 04/30/25 01:10 Dose: Not Given Albuterol (Albuterol Rt 2.5 Mg/3 Ml Nebu) 5 mg INH X1 ONE Stop: 04/30/25 00:46 Dextrose (Dextrose 50%-Water Inj 50 Ml Syringe) 50 ml IVP X1 ONE Stop: 04/29/25 20:16 Last Admin: 04/29/25 20:19 Dose: 50 ml Dextrose (Dextrose 50%-Water Inj 50 Ml Syringe) 50 ml IVP X1 ONE Stop: 04/30/25 00:51 Sodium Chloride (Ns) 1,000 mls @ 999 mls/hr IV .Q1H1M ONE Stop: 04/29/25 19:51 Last Infusion: 04/29/25 20:09 Dose: Infused Ceftriaxone Sodium/Dextrose (Rocephin/D5w 1gm Iv Premix) 1 gm in 50 mls @ 100 mls/hr IV X1 ONE Stop: 04/29/25 23:23 Last Infusion: 04/30/25 01:10 Dose: Infused Sodium Chloride (Ns) 1,000 mls @ 75 mls/hr IV .[id number] [facility] Stop: 05/29/25 23:44 Last Admin: 04/30/25 00:37 Dose: Not Given Dextrose (D5w) 1,000 mls @ 75 mls/hr IV .[id number] [facility] Stop: 05/30/25 00:29 Last Admin: 04/30/25 00:37 Dose: Not Given Ceftriaxone Sodium/Dextrose (Rocephin/D5w 1gm Iv Premix) 1 gm in 50 mls @ 100 mls/hr IV QDAY TAWNY Stop: 05/07/25 00:32 Last Admin: 04/30/25 00:44 Dose: Not Given Insulin Human Regular (Insulin Hum Regular 1 Unit/0.01 Ml (Per Unit)) 5 unit SC X1 ONE Stop: 04/30/25 00:46 Last Admin: 04/30/25 01:04 Dose: Not Given Sodium Polystyrene Sulfonate (Sod Polystyrene Sulfon Susp 15 Gm/60 Ml Btl) 30 gm PO X1 ONE Stop: 04/30/25 00:46 Assessment & Plan Plan This patient is a 89-year-old female with past medical history of possible peripheral neuropathy, paraplegia, bedbound, neurogenic bladder with incontinence, breast cancer status post right breast lumpectomy 25 years ago, endometriosis s/p hysterectomy, hypothyroidism, [id number] type 2 diabetes, hypertension presented with nausea/dry heaving and diarrhea, admitted for hypoglycemia, lactic acidosis with high anion gap metabolic acidosis with KALLI related to metformin/dehydration and UTI. Neurology No active issue #History of peripheral neuropathy #Paraplegic and bedbound post peripheral neuropathy - Frequent repositioning to avoid bedsores - No medication listed for neuropathy #History of depression -Patient takes sertraline Treatment plan -Continue sertraline Cardiovascular #Hypotension #Concern for ADrenal suppresion? DDx: ?Septic shock due to community-acquired pneumonia or UTI,lactic acidosis, AGMA Diagnostic Test: Follow-up with CBC, CMP, blood cultures and urine cultures Treatment Plan: -Patient received 1 L NS in the ER. -Consider Hydrocortisone for adrenal suppression -Bolus of 2 L LR given x 1 -Levophed as needed -Follow-up with VBG's and CBC -Continue antibiotics -Follow-up with CT abdomen pelvis without con due to previous history of nonobstructing renal calculi and uptrending lactic acid to rule out any other pathology related to abdomen Treatment Review: #?Pulmonary hypertension Per chart review, CT showed pulmonary arterial hypertension. She is not taking currently any medications. -No active intervention needed -Follows Dr. Livingston, production reproduction manager as outpatient #Lactic acidosis type B -Related to metformin, KALLI, dehydration Diagnostic test: Follow-up with lactic acid Treatment plan -IV fluid resuscitation -Hold home medications metformin - Broad-spectrum antibiotics Zosyn for treating infection -Follow-up with CT abdomen pelvis without con due to previous history of nonobstructing renal calculi and uptrending lactic acid to rule out any other pathology related to abdo Respiratory #Community accquired PNA -Patient denied any cough or shortness of breath. Saturating well on room air. -Diagnostic test CXR showed Atelectasis versus mild pneumonia left base -Treatment Plan - COVID was negative -Continue Zosyn renally dose - Follow-up with blood cultures GI and F/E/N #Diarrhea #?Viral gastroenteritis -Patient reported that she has alternating bowel movements with constipation and diarrhea. Endorsed chills. No abdominal pain elicited on exam. DDx: Viral gastroenteritis, IBS Diagnostic Test: Follow-up with stool culture and stool WBC Treatment Plan: -Fluid resuscitation -Electrolyte repletion Treatment Review: Renal #KALLI DDx: Likely prerenal due to dehydration, intrarenal due to medication/metformin -Patient reported to have loose stools from last 2 days. Was taking glipizide and metformin. Denies any blood in the stool. BUN 50 and creatinine 3.4 baseline creatinine 0.6 from November 2024 Diagnostic tests: Renal ultrasound, urine electrolytes Treatment plan -IV fluids -Avoid nephrotoxic agents -Renally dose medications -Strict PROSPER's -Follow-up with renal ultrasound -Follow-up with urine electrolytes - Nephro consulted, appreciate recs - Hold metformin #Asymptomatic pyuria -Patient denied any symptoms of burning or dysuria. -Urinalysis was positive for urine infection without bacteria with significant pyuria. Treatment plan -Continue IV Zosyn - Follow-up with urine cultures #Hyperphosphatemia -Related to KALLI Diagnostic tests, CMP Treatment plan -Sevelamer 3 times daily #Urinary incontinence -Wear diaper for incontinence -Purewick for st in/outs #Anion gap metabolic acidosis DDx: Medications/metformin, KALLI stage IV, diabetes, RTA type IV possibly masked with anion gap due to lactic acid -VBG showed pH 7.27, PCO2 38, PO2 31 Pope formula: expected pco2 28-32 vbg pco2 38 Diagnostic Test: CMP, VBG Treatment Plan: -2 ampoules of bicarb given x 1 -Treating underlying infection -IV fluids -Bicitra twice daily -Nephrology consulted, appreciate recommendations -Follow-up with renal ultrasound Treatment Review: #Hyponatremia #Hyperkalemia -DDx: Related to KALLI, medications, RTA type IV? -Sodium 134, potassium 5.6 Diagnostic test: CMP, urine electrolytes Treatment plan: - IV fluids given -Kayexalate, breathing treatment x 2, calcium gluconate given - Held insulin due to persistent low blood sugar - Monitor electrolytes and correct as necessary Heme #Normocytic anemia DDx: Nutrition deficiency Diagnostic Test: CBC Treatment Plan: -PRBC hemoglobin drops below 7 -Follow-up with CBC Treatment Review: #Leukocytosis -WBC 12.3 DDx: Infection/UTI/community-acquired pneumonia Diagnostic tests: CBC Treatment plan -Follow-up with CBC - Started antibiotic Endo #Persistent hypoglycemia #Type 2 diabetes, [id number] -Patient takes metformin and glipizide at home. No insulin was reported. Blood sugars were persistently low around 20 to 50 mg/dl DDx: Related to glipizide/sulfonylurea Diagnostic Test: CMP Treatment Plan: -Started D10 at 50 cc/h -Goal of blood sugar below 180 mg/dL -Blood sugar checks every hourly Treatment Review: #History of hypothyroidism -Patient takes levothyroxine Treatment plan -Continue levothyroxine ID #?Community-acquired pneumonia #UTI Diagnostic Test: Chest x-ray and urine analysis Treatment Plan: -Started IV Zosyn renally dosed 2.25 g every 8 hourly -Follow-up with blood cultures and urine cultures Treatment Review: DVT prophylaxis:Heparin sq GI prophylaxis: Protonix 40 IV daily Diet: Clear liquid diett Chavarria: Pure wick catheter Lines: Peripherals Drips: D10 at 50 cc/h Vent: Not indicated CODE STATUS: DNR Reason of hospitalization: admitted for persistent hypoglycemia, lactic acidosis with high anion gap metabolic acidosis with KALLI related to metformin/dehydration and UTI. Patient discussed with my attending, Dr. Oliver segovia MD, PGY 3 Attending Provider Attestation/Addendum Attending Provider Attestation/Addendum After examination of the patient and review of the clinical data I feel that this patient needs admission to the hospital for further treatment/evaluation. Time spent on critical patient's evaluation and plan of care 60 minutes. Attending Provider Attestation/Addendum I attest that I was physically present for the evaluation, physical examination, lab and imaging review of the patient with the residents. I discussed the case with the residents and agree with the findings and plans of care as documented above. Daija Boyd MD
[2025-04-30] MEDS: SOD POLYSTYRENE SULFON SUSP 15 GM/60 ML BTL 30 GM PO (01:26)
[2025-04-30] MEDS: DEXTROSE 50%-WATER INJ 50 ML SYRINGE IVP (01:31)
[2025-04-30] MEDS: ALBUTEROL RT 2.5 MG/3 ML NEBU 5 MG INH (01:47)
--- NOTE | 2025-04-30 02:06 | XR_ITS ---
Examination: Retroperitoneal ultrasound, complete Technique: Multiple high resolution grayscale images of the retroperitoneum obtained, including kidneys and bladder. Exam date and time:April 30, 2025, 0213 hours INDICATIONS: Acute renal insufficiency on laboratory examination today FINDINGS: Right kidney 10.6 cm renal cortex 1.5 cm Left kidney 11.2 cm cortex 1.2 cm No hydronephrosis or renal calculi Contracted urinary bladder IMPRESSION: Bilateral renal cortical thinning No hydronephrosis or renal calculi.
[2025-04-30 02:10] LABS: Lactate (Lactic Acid) 5.9 mMol/L (0.4-2.0)
[2025-04-30] MEDS: SODIUM BICARB INJ 8.4% 1 mEq/ML 50 ML VIAL 50 MEQ IV ×2 (02:27→03:08)
[2025-04-30] MEDS: RINGERS LACTATED 1000 ML 1,000 ML 999 ML IV ×2 (02:27→04:05)
[2025-04-30] MEDS: CALCIUM GLUCONATE 10% INJ 1 GM/10 ML VIAL IV (03:16)
[2025-04-30] MEDS: DEXTROSE 10%-WATER 1000 ML 1,000 ML 100 ML IV (03:22)
[2025-04-30] MEDS: Magnesium Sulfate 2 GM Ivpb 2 GM/50 ML BAG IV (03:23)
[2025-04-30 03:40] LABS: Reflex Lactate? Y
--- NOTE | 2025-04-30 04:27 | PRELIM_ITS ---
Renal/Retroperitoneal ultrasound with Doppler. April 30, 2025 0213 hours Clinical history: KALLI Comparison: None. Findings: Right: The right kidney measures 10.6 cm and is unremarkable. There is no hydronephrosis or renal calculus. The corticomedullary differentiation is maintained. Left: The left kidney measures 11.3 cm and is unremarkable. There is no hydronephrosis or renal calculus. The corticomedullary differentiation is maintained. The urinary bladder is empty. No abnormalities by Doppler. Incidentally noted liver steatosis. Impression: Unremarkable renal ultrasound examination. Liver steatosis. Report Electronically Signed By: Hernandez Parmar 04/30/2025 4:26:39 AM [EST]
[2025-04-30 05:08] LABS: Reflex Lactate? Y
[2025-04-30 05:16] LABS: Lactate (Lactic Acid) 12.0 mMol/L (0.4-2.0)
[2025-04-30 05:25] LABS: Basophils # (Auto) 0.0 Thou/mm3 (0.0-0.2); Basophils % (Auto) 0 % (0-2.5); Eosinophils # (Auto) 0.0 Thou/mm3 (0.0-0.5); Eosinophils % (Auto) 0 % (0-10); Hematocrit 33.4 % (36.0-46.0); Hemoglobin 10.5 g/dL (12.0-16.0); Immature Granulocytes Auto 0.10 Thou/mm3 (0.00-0.00); Lymphocytes # (Auto) 0.6 Thou/mm3 (1.0-4.8); Lymphocytes % (Auto) 6 % (10-50); Mean Corpuscular HGB Conc 31.4 g/dl (31.0-37.0); Mean Corpuscular Hemoglobin 27.9 pg (25.0-35.0); Mean Corpuscular Volume 89 fL (80-100); Monocytes # (Auto) 0.9 Thou/mm3 (0.0-0.8); Monocytes % (Auto) 10 % (0-12); Neutrophils # (Auto) 7.7 Thou/mm3 (1.8-7.7); Neutrophils % (Auto) 83 % (37-80); Nucleated Red Blood Cell # 0.00 Thou/mm3 (0.00-0.00); Nucleated Red Blood Cell % 0 /100 WBC (0); Platelet Count 174 Thou/mm3 (140-440); RDW Standard Deviation 46.4 fL (36.4-46.3); Red Blood Count 3.76 Miln/mm3 (4.00-5.20); White Blood Count 9.4 Thou/mm3 (3.6-11.0)
[2025-04-30] MEDS: Norepinephrine/D5W 8mg/250ml 8 MG/250 ML BAG 7.678 MG IV (05:39)
[2025-04-30] MEDS: LEVOTHYROXINE SODIUM 25 MCG TABLET 50 MCG PO (05:43)
[2025-04-30 07:33] LABS: Alanine Aminotransferase 16 U/L (10-49); Albumin, Serum 3.1 gm/dL (3.4-4.8); Alkaline Phosphatase 43 U/L (46-116); Anion Gap 23 (7-16); Aspartate Amino Transferase 17 U/L (0-34); BUN/Creatinine Ratio 15 Ratio (12-20); Blood Urea Nitrogen 50 mg/dL (9-23); Calcium 8.5 mg/dL (8.3-10.6); Calcium (Corrected) 9.2 mg/dL (8.5-10.1); Chloride 99 mMol/L (98-107); Creatinine (Component) 3.4 mg/dL (0.6-1.3); Estimated Creatinine Clearance 11.7 mL/min (>60); Glucose 136 mg/dL (74-106); Magnesium 2.2 mg/dL (1.6-2.6); Osmolality,Calculated 289 (275-295); Potassium 4.6 mMol/L (3.4-5.1); Sodium 137 mMol/L (136-145); eGFR 13 See Note
[2025-04-30 07:35] LABS: Carbon Dioxide 14.6 mMol/L (20.0-31.0)
[2025-04-30 07:39] LABS: Albumin/Globulin Ratio 1.1 (1.2-2.2); Bilirubin,Total < 0.2 mg/dL (0.3-1.2); Globulin 2.8 gm/dL (2.3-3.5); Thyroid Stimulating Hormone 1.57 uIU/mL (0.55-4.78); Total Protein 5.9 gm/dL (5.7-8.2)
[2025-04-30] MEDS: Sodium Bicarb Inj 8.4% SYR 50 ML SYRINGE IV (07:51)
--- NOTE | 2025-04-30 08:07 | XR_ITS ---
Examination: CT abdomen and pelvis without contrast. Coronal 3-D reconstructions. Sagittal 2-D reconstructions. Date and time of exam:April 30, 2025 1304 hours Comparison June 14, 2019 INDICATIONS: Onset abdominal pain today CTDI: vol (mGy): 18.4 DLP: (mGycm): 1022 Technique: Axial images of the abdomen have been obtained, 3 mm slice thickness Intravenous contrast material has not been administered. Low dose protocols were performed. One or more of the following dose reduction techniques were used; automated exposure control, adjustment of the mA and/or KV according to patient size, use of iterative reconstruction technique. Findings: Prominent vascular congestion Small bilateral pleural effusions Mild to moderate enlargement cardiac contour Hepatomegaly 22 cm No focal liver or splenic lesions Absent gallbladder No pancreatic mass Minimal nodular thickening left adrenal gland 12 mm calculus in the left renal pelvis with no hydronephrosis 7 mm calculus lower pole, 6 mm calculus midpole right kidney no hydronephrosis No ureteral calculi No pericecal inflammatory change Diffuse nonspecific colitis pattern which is severe in the sigmoid colon with prominent wall thickening involving the sigmoid colon Large amounts of stool in the rectum with thickening of the rectal wall No pelvic mass Urinary bladder wall thickening Severe osteopenia IMPRESSION: Hepatomegaly, 22 cm 12 mm calculus in the left renal pelvis but no hydronephrosis Right renal calculi, no hydronephrosis Diffuse nonspecific colitis pattern which is severe in the sigmoid colon, differential would include Crohn's disease, ulcerative colitis, recommend elective colonoscopy with specific attention to the sigmoid colon Large amounts of stool in the rectum with thickening of the rectal wall, differential would include proctitis Cystitis pattern
[2025-04-30 08:10] LABS: Reflex Lactate? Y
[2025-04-30] MEDS: SODIUM CHLORIDE 0.9% 1000 ML 1,000 ML 999 ML IV (08:19)
[2025-04-30 08:29] LABS: Base Excess, Venous -12 (-3-3); O2 Saturation, Venous 99 % (96-97); PCO2, Venous 29 mmHg (36-56); PO2, Venous 102 mmHg (15-58); pH, Venous 7.27 (7.33-7.66)
[2025-04-30 08:32] LABS: Lactate (Lactic Acid) 11.2 mMol/L (0.4-2.0)
[2025-04-30] MEDS: SEVELAMER CARBONATE 800 MG TABLET PO ×3 (08:48→17:24)
[2025-04-30 10:08] LABS: Creatinine,Random Urine 29 mg/dL (30-125)
[2025-04-30] MEDS: PIPER/TAZO 2.25 GM 2.25 GM/50 ML BAG IV (10:09)
[2025-04-30] MEDS: DOXYCYCLINE INJ 100 MG in SODIUM CHLORIDE 0.9% (POP) 100 ML IV (10:16)
[2025-04-30] MEDS: CITRIC ACID/SODIUM CITR 15 ML UDC (BICITRA) 30 ML PO ×2 (10:16→21:59)
[2025-04-30 11:00] LABS: Reflex Lactate? Y
[2025-04-30 12:24] LABS: Lactic Acid, 3 HR 10.6 mMol/L (0.4-2.0)
--- NOTE | 2025-04-30 13:56 | ESCONSULT_ITS ---
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 intake and diarrhea for the past 2 days. Also has not been able to eat and drink for the past 2 days. Denies dysuria, coughing, fever. No sick contacts. Patient denies history of cardiac or renal disease. Patient is bedbound with neurogenic bladder, wears diaper. Also has upper extremity weakness due to bilateral shoulder pain. ED Course-- Initial vitals were BP 99/51, HR 79, RR 16, temp 98.8 F, 93% on room air -Labs significant for WBC 12.3, hemoglobin 11.9, sodium 134, potassium 5.7, anion gap 18, glucose 28, BUN 59, creatinine 3.0 Imaging included CXR showed atelectasis versus mild pneumonia left base. -In the ED, patient was given NS 1 L IV x 1, dextrose 50 mL x 1, ceftriaxone 1 g x 1 -Patient was admitted for severe hypoglycemia with high anion metabolic acidosis. Due to hypotension patient was started on pressors and transferred to ICU. Patient currently seen in ICU. Renal consultation requested for KALLI and metabolic acidosis. Despite giving 2 L of fluids her urine output was very low. 04/30/2025WBC 9.4, hemoglobin 10.5, platelets 174, sodium 137, potassium 4.6, bicarbonate 14.6, BUN 50, creatinine 3.4, GFR 13, glucose 136, lactic acid significantly elevated at 12, calcium 9.2, phosphorus 8.2, LFTs normal, albumin 3.1, TSH 1.57 urinalysis shows pyuria urine anion gap positive ABG showing pH 7.27, pCO2 29, base excess -12, anion gap 23 cc:: cc: Daija Boyd MD Review of Systems Review of Systems Narrative Review of Systems: CONSTITUTIONAL: Patient denies any fever, chills. Complaining of fatigue HEENT: Denies any visual disturbances or hearing problems. CARDIOVASCULAR: Patient denies any chest pain, shortness of breath. c/o swelling in the lower extremities. PULMONARY: Patient denies any shortness of breath, cough. GASTROINTESTINAL: Complaining of abdominal discomfort, nausea, vomiting, loose stools GENITOURINARY: Has urine incontinence SKIN: Small decubiti on the right buttock MUSCULOSKELETAL: bedbound mostly NEUROLOGICAL: Patient unable to move her legs due to severe neuropathy and is bedbound PSYCHIATRIC: Denies any depression or anxiety. LYMPHATICS : No lymphadenopathy Past Medical History Past Medical History CARDIAC: Positive Cardiac Disorders and Hypertension; Negative Congestive Heart Failure RESPIRATORY: Negative Chronic Obstructive Pulmonary Disease (COPD) or Asthma GENITOURINARY: Negative Renal Disease ENDOCRINE: Positive Hypothyroidism; Negative Diabetes Mellitus Type 1 or Diabetes Mellitus Type 2 HEMATOLOGIC: Negative Sickle Cell Disease Social History SMOKING STATUS: Never smoker SUBSTANCE USE: does not use Exam Vital Signs Temp Pulse Resp BP Pulse Ox O2 Del Method 98.1 F 96 15 123/51 L 95 Room Air 04/30/25 08:00 04/30/25 11:04/30/25 11:04/30/25 11:04/30/25 11:01 04/30/25 08:00 Narrative Exam GENERAL APPEARANCE: Patient seems to be comfortable, adequately hydrated and nourished. Obese lady seen in ICU. at bedside HEENT: EOMI, PERRLA NECK: Neck supple, no JVD or bruit CARDIOVASCULAR: Heart regular, no murmurs LUNGS/CHEST: Chest clear to auscultation. No rales, rhonchi, wheezing ABDOMEN: Soft, nontender, nondistended. No masses. Normal bowel sounds. ++ Loose stools EXTREMITIES: No edema, clubbing or cyanosis. lipidemia + SKIN: small decub on the bottom MUSCULOSKELETAL: Unable to move her legs PSYCHIATRIC: Normal mood, affect LYMPHATICS: No lymphadenopathy noted NEUROLOGICAL : Alert and awake. Unable to move her lower extremities Results Labs 05/01/25 05:24 05/01/25 05:24 Labs: Short CBC 04/29/25 04/30/25 Range/Units 18:25 04:48 WBC 12.3 H 9.4 (3.6-11.0) Thou/mm3 Hgb 11.9 L 10.5 L (12.0-16.0) g/dL Hct 37.8 33.4 L (36.0-46.0) % Plt Count 310 174 D (140-440) Thou/mm3 BMP 04/29/25 04/30/25 04/30/25 18:25 00:38 04:48 Sodium 134 L 134 L 137 Potassium 5.7 H 5.6 H 4.6 D Chloride 99 101 99 Carbon Dioxide 17.0 L 15.8 L 14.6 L* BUN 59 H 50 H 50 H Creatinine 3.0 H 3.4 H 3.4 H Glucose 28 L* 64 L D 136 H D Calcium 9.3 8.5 8.5 Liver Function 04/29/25 04/30/25 Range/Units 18:25 04:48 Total Bilirubin < 0.2 L < 0.2 L (0.3-1.2) mg/dL AST 23 17 (0-34) U/L ALT 18 16 (10-49) U/L Alkaline Phosphatase 49 43 L (46-116) U/L Albumin 3.7 3.1 L D (3.4-4.8) gm/dL Urine 04/29/25 Range/Units 20:00 Urine Color [place] A (Lt Yel-Yel) Urine Clarity Turbid A (Clear/Hazy) Urine pH 6.0 (5.0-7.0) Ur Specific [place] 1.020 (1.001-1.035) Urine Protein 3+ A (Neg - Trace) Urine Glucose (UA) Negative (Negative) ABG Interpretation ABG results: 04/30/25 04/30/25 00:38 07:55 VBG pH 7.27 L 7.27 L VBG pCO2 38 29 L VBG pO2 31 102 H D VBG Base Excess -9 L -12 L Quality Measures Quality Measures VTE prophylaxis (Heparin subcu) Advance care planning discussed with:: patient Medications Home Medications and Allergies Home Medications ?Medication ?Instructions ?Recorded ?Confirmed ?Type solifenacin 10 mg tablet (Vesicare) 10 mg PO QDAY 04/3004/30/25 History Held on 04/30/25. Instructions: Doctor's Order chlorthalidone 25 mg tablet 1 tab PO QAM 03/12/2211/23 History glipizide 5 mg tablet 1 tab PO BID 03/12/22 History levothyroxine 75 mcg tablet 1 tab PO QDAY 03/12/2211/23 History Held on 04/30/25. Instructions: Duplicate metoprolol succinate 50 mg 1 tab PO QDAY 03/12/2211/23 History tablet,extended release 24 hr pantoprazole 20 mg tablet,delayed 1 tab PO QDAY 04/30/25 History release potassium chloride 20 mEq 1 tab PO MWF 03/12/22 History tablet,extended release pregabalin 75 mg capsule 1 cap PO QDAY 03/12/2204/30 History Held on 04/30/25. Instructions: Doctor's Order sertraline 25 mg tablet 1 tab PO QDAY 03/12/2204/30 History diphenoxylate-atropine 2.5 1 tab PO BID 04/30/2504/30 History mg-0.025 mg tablet levothyroxine 50 mcg tablet 50 mcg PO QAM 04/30/2511/23 History (Euthyrox) metformin 500 mg tablet 500 mg PO BID 04/30/2504/30 History mupirocin 2 % topical ointment 1 applic topical PRN OR N Body sores 04/30/25 04/30/25 History torsemide 20 mg tablet 20 mg PO MWF 04/30/25 History tramadol 50 mg tablet 50 mg PO QDAY PRN pain 04/3004/30/25 History Allergies Allergy/AdvReac Type Severity Reaction Status Date / Time NKA* Allergy Uncoded 05/20/19 09:14 Visit Medications Acetaminophen (Acetaminophen 325 Mg Tablet) 650 mg PO Q6H PRN PRN Reason: Fever >101.5 Stop: 05/29/25 23:56 Citric Acid/Sodium Citrate (Citric Acid/Sodium Citr 15 Ml Udc (Bicitra)) 30 ml PO BID TAWNY Stop: 05/30/25 08:59 Last Admin: 04/30/25 10:16 Dose: 30 ml Dextrose (Dextrose 50%-Water Inj 50 Ml Syringe) 25 ml IV Q15MIN PRN PRN Reason: BG 50-70 responsive npo pt Stop: 05/30/25 00:06 Dextrose (Dextrose 50%-Water Inj 50 Ml Syringe) 50 ml IV Q15MIN PRN PRN Reason: BG <50 OR BG <70 & pt unresponsive Stop: 05/30/25 00:06 Dextrose (Dextrose 50%-Water Inj 50 Ml Syringe) 50 ml IV Q15MIN PRN PRN Reason: BG <50 OR BG <70 & pt unresponsive Stop: 05/30/25 02:02 Glucagon (Glucagon Inj 1 Mg Vial) 1 mg IM Q15MIN PRN PRN Reason: BG <70, and no IV access Heparin Sodium (Porcine) (Heparin Sod Inj 5000 Unit/Ml Vial) 5,000 unit SC Q8HR TAWNY Stop: 05/14/25 00:14 Last Admin: 04/30/25 05:44 Dose: 5,000 unit Piperacillin/Tazobactam/Dextrose (Zosyn) 2.25 gm in 50 mls @ 100 mls/hr IV Q8HR [facility] Stop: 05/07/25 05:59 Last Admin: 04/30/25 10:09 Dose: 100 mls/hr Sodium Bicarbonate 88.23 meq/ (Dextrose) 588.23 mls @ 100 mls/hr IV .Q5H53M TAWNY Stop: 05/30/25 12:35 Levothyroxine Sodium (Levothyroxine Sodium 25 Mcg Tablet) 50 mcg PO ACBR TAWNY Stop: 05/30/25 05:59 Last Admin: 04/30/25 05:43 Dose: 50 mcg Metronidazole (Metronidazole 250 Mg Tablet) 500 mg PO BID [facility] Stop: 05/07/25 13:29 Ondansetron HCl (Ondansetron Inj 2 Mg/Ml Inj 2 Ml) 4 mg IVP Q6H PRN; Protocol PRN Reason: NAUSEA OR VOMITING Stop: 05/29/25 23:56 Pantoprazole Sodium (Pantoprazole Inj 40 Mg Vial) 40 mg IVP QDAY TAWNY Stop: 05/30/25 02:09 Last Admin: 04/30/25 10:16 Dose: 40 mg Sertraline HCl (Sertraline Hcl 25 Mg Tablet) 25 mg PO HS [facility] Stop: 05/30/25 20:59 Sevelamer Carbonate (Sevelamer Carbonate 800 Mg Tablet) 800 mg PO TIDWM TAWNY Stop: 05/30/25 07:59 Last Admin: 04/30/25 12:12 Dose: 800 mg Discontinued Medications Albuterol (Albuterol Rt 2.5 Mg/3 Ml Nebu) 2.5 mg INH X1 ONE Stop: 04/30/25 00:46 Last Admin: 04/30/25 01:10 Dose: Not Given Albuterol (Albuterol Rt 2.5 Mg/3 Ml Nebu) 5 mg INH X1 ONE Stop: 04/30/25 00:46 Last Admin: 04/30/25 01:47 Dose: 5 mg Albuterol (Albuterol Rt 25 Mg/5 Ml Nebu) 5 mg INH X1 ONE Stop: 04/30/25 02:04 Last Admin: 04/30/25 04:13 Dose: Not Given Calcium Gluconate (Calcium Gluconate 10% Inj 1 Gm/10 Ml Vial) 1 gm IV X1 ONE Stop: 04/30/25 02:04 Last Admin: 04/30/25 03:16 Dose: 1 gm Dextrose (Dextrose 50%-Water Inj 50 Ml Syringe) 50 ml IVP X1 ONE Stop: 04/29/25 20:16 Last Admin: 04/29/25 20:19 Dose: 50 ml Dextrose (Dextrose 50%-Water Inj 50 Ml Syringe) 50 ml IVP X1 ONE Stop: 04/30/25 00:51 Last Admin: 04/30/25 01:31 Dose: 50 ml Glucagon (Glucagon Inj 1 Mg Vial) 1 mg IM Q15MIN PRN PRN Reason: BG <70, and no IV access Sodium Chloride (Ns) 1,000 mls @ 999 mls/hr IV .Q1H1M ONE Stop: 04/29/25 19:51 Last Infusion: 04/29/25 20:09 Dose: Infused Ceftriaxone Sodium/Dextrose (Rocephin/D5w 1gm Iv Premix) 1 gm in 50 mls @ 100 mls/hr IV X1 ONE Stop: 04/29/25 23:23 Last Infusion: 04/30/25 01:10 Dose: Infused Sodium Chloride (Ns) 1,000 mls @ 75 mls/hr IV .[id number] TAWNY Stop: 05/29/25 23:44 Last Admin: 04/30/25 00:37 Dose: Not Given Dextrose (D5w) 1,000 mls @ 75 mls/hr IV .[id number] TAWNY Stop: 05/30/25 00:29 Last Admin: 04/30/25 00:37 Dose: Not Given Ceftriaxone Sodium/Dextrose (Rocephin/D5w 1gm Iv Premix) 1 gm in 50 mls @ 100 mls/hr IV QDAY TAWNY Stop: 05/07/25 00:32 Last Admin: 04/30/25 00:44 Dose: Not Given Ceftriaxone Sodium/Dextrose (Rocephin/D5w 1gm Iv Premix) 1 gm in 50 mls @ 100 mls/hr IV QDAY [facility] Stop: 05/07/25 20:59 Dextrose (D10w) 500 mls @ 50 mls/hr IV .Q10H [facility] Stop: 05/30/25 00:34 Last Admin: 04/30/25 01:06 Dose: 50 mls/hr Lactated Ringer's (Lactated Ringers) 1,000 mls @ 999 mls/hr IV .Q1H1M ONE Stop: 04/30/25 01:54 Last Admin: 04/30/25 02:27 Dose: 999 mls/hr Dextrose (D10w 1000 Ml) 1,000 mls @ 100 mls/hr IV .Q10H [facility] Stop: 04/30/25 12:14 Last Admin: 04/30/25 03:22 Dose: 100 mls/hr Magnesium Sulfate (Magnesium Sulfate Ivpb) 2 gm in 50 mls @ 25 mls/hr IV X1 ONE Stop: 04/30/25 04:06 Last Admin: 04/30/25 03:23 Dose: 25 mls/hr Piperacillin/Tazobactam/Dextrose (Zosyn) 50 mls @ 100 mls/hr IV Q12HR [facility] Stop: 05/07/25 03:39 Lactated Ringer's (Lactated Ringers) 1,000 mls @ 999 mls/hr IV .Q1H1M ONE Stop: 04/30/25 04:40 Last Admin: 04/30/25 04:05 Dose: 999 mls/hr Norepinephrine/Dextrose (Levophed In D5w 8mg/250ml) 8 mg in 250 mls @ 7.678 mls/hr IV .Q24H PRN; Protocol PRN Reason: PER PROTOCOL Stop: 05/30/25 03:39 Last Titration: 04/30/25 08:10 Dose: 0.01 mcg/kg/min, 1.536 mls/hr Lactated Ringer's (Lactated Ringers) 1,000 mls @ 999 mls/hr IV .Q1H1M ONE Stop: 04/30/25 06:56 Last Admin: 04/30/25 07:51 Dose: Not Given Doxycycline Hyclate 100 mg/ (Sodium Chloride) 100 mls @ 100 mls/hr IV BID TAWNY Stop: 05/07/25 08:59 Last Admin: 04/30/25 10:16 Dose: 100 mls/hr Lactated Ringer's (Lactated Ringers) 500 mls @ 500 mls/hr IV .Q1H ONE Stop: 04/30/25 08:40 Last Admin: 04/30/25 07:51 Dose: Not Given Sodium Chloride (Ns) 1,000 mls @ 999 mls/hr IV .Q1H1M ONE Stop: 04/30/25 08:48 Last Admin: 04/30/25 08:19 Dose: 999 mls/hr Insulin Human Lispro (Insulin Lispro (Admelog) 1 Unit/0.01 Ml Unit) 0 unit SC ACHS [facility]; Protocol Stop: 05/30/25 07:29 Insulin Human Regular (Insulin Hum Regular 1 Unit/0.01 Ml (Per Unit)) 5 unit SC X1 ONE Stop: 04/30/25 00:46 Last Admin: 04/30/25 01:04 Dose: Not Given Oxycodone/Acetaminophen (Oxycodone/Apap 5/325 Tablet) 1 tab PO X1 ONE Stop: 04/30/25 03:23 Last Admin: 04/30/25 03:42 Dose: 1 tab Sodium Bicarbonate (Sodium Bicarb Inj 8.4% 1 Meq/Ml 50 Ml Vial) 50 meq IV X1 ONE Stop: 04/30/25 02:00 Last Admin: 04/30/25 02:27 Dose: 50 meq Sodium Bicarbonate (Sodium Bicarb Inj 8.4% 1 Meq/Ml 50 Ml Vial) 50 meq IV X1 ONE Stop: 04/30/25 02:10 Last Admin: 04/30/25 03:08 Dose: 50 meq Sodium Bicarbonate (Sodium Bicarb Inj 8.4% Syr 50 Ml Syringe) 50 ml IV X1 ONE Stop: 04/30/25 07:40 Last Admin: 04/30/25 07:51 Dose: 50 ml Sodium Bicarbonate (Sodium Bicarb Inj 8.4% 1 Meq/Ml 50 Ml Vial) 50 meq IV X1 ONE Stop: 04/30/25 08:13 Last Admin: 04/30/25 08:32 Dose: Not Given Sodium Polystyrene Sulfonate (Sod Polystyrene Sulfon Susp 15 Gm/60 Ml Btl) 30 gm PO X1 ONE Stop: 04/30/25 00:46 Last Admin: 04/30/25 01:26 Dose: 30 gm Assessment & Plan Problem List (1) Acute renal failure (ARF): Status: Acute Assessment and plan: Acute renal failure secondary to prerenal azotemia. Patient with persistent hypotension and decreased urinary output. Clinically looks rather hypovolemic. Recommended for the ICU team to proceed with bicarb drip. If no improvement in renal function or urine output will proceed with renal replacement therapy tomorrow. Plan of care discussed with at bedside, CT scan showed large renal calculi with no hydronephrosis. Renal ultrasound showed CKD changes. (2) Dehydration: Status: Acute Assessment and plan: Continue with IV fluids (3) UTI (urinary tract infection): Status: Acute Assessment and plan: On antibiotics (4) Pneumonia: Status: Acute Assessment and plan: On antibiotics (5) Metabolic acidosis: Status: Acute Assessment and plan: Anion gap metabolic acidosis-secondary to lactic acidosis and renal failure. Bicarb drip ordered Anion gap positive all the patient received a bicarb drip (6) Diarrhea: Status: Acute Assessment and plan: Noted significant diarrhea. Check for C. difficile. Fluids given (7) Lactic acidosis: Status: Acute Assessment and plan: Lactic acidosis from hypotension and also from the metformin. Bicarb drip ordered. (8) Diabetes: Status: Acute Assessment and plan: Accu-Cheks, sliding scale. Patient noted to have persistent hypoglycemia. On D5 (9) Sepsis: Status: Acute Assessment and plan: Sepsis secondary to possible UTI versus GI Persistent hypotension needing pressors. Continue with IV fluids and supportive therapy with antibiotics (10) Shock: Status: Acute Assessment and plan: Septic shock needing pressors. Pending cultures. (11) Anemia: Status: Acute Assessment and plan: Anemia for renal failure Assessment Thank you Dr. Hidalgo for allowing me to participate in the care of Ms. May
[2025-04-30] MEDS: Sodium Bicarb 8.4% 50ml Vial* 88.23 MEQ in DEXTROSE 5%-WATER 500 ML 100 MEQ IV (14:42)
--- NOTE | 2025-04-30 14:43 | ESPR_ITS ---
<Statement entered by Tai Pyle MD - 05/01/25 12:35> 89-year-old female with significant past medical history of paraplegia, bedbound since 5 years, bowel and bladder incontinence, breast cancer s/p right breast lumpectomy 24 years ago, endometriosis s/p hysterectomy, hypothyroidism, PAH, type 2 diabetes mellitus, hypertension presented to the hospital with chief complaints of nausea, dry heaves and diarrhea since 3 days. Also endorsed that since 3 days she had poor oral intake in view of dry heaves. Denies fever, burning micturition. Patient has both bowel and bladder incontinence so not able to comment on urine output. Denies recent sick contacts, blood, mucus in the bowel movement. At the time of admission, patient was found to have low blood glucose and recurrent hypoglycemic episodes for which patient was started on D10 infusion. Patient received total 2 L of boluses of fluid overnight. Also was started on vasopressors in view of low MAP. On examination, patient is alert, awake and oriented. Labs showed KALLI likely ATN in the setting of ongoing diarrheal illness and suspected underlying UTI. Imaging showed 12 mm renal calculi, which could be contributing to the UTI. Patient was given 2 L of boluses again and is allowed on clear liquid diet. Slowly the patient came off vasopressors and able to maintain blood sugars so D10 is also discontinued. Bedside ultrasonogram was done which showed adequate fluid resuscitation and the IVC is around 2 cm. Pie Topper, Dr. tinoco is consulted who recommended to continue current management and no dialysis as of now. Later renal functions are repeated that showed BUN 60, creatinine 2.9 and bicarb improved significantly to 19.2. Bicarb drip is also discontinued and patient was started on oral bicarb tablets. Lactic acid was significantly down trended from 10.6-7.6. Patient was continued on maintenance fluids, LR at 125 mL/h. Patient was noted to produce adequate amount of urine, 40 to 50 cc/h. As the patient is hemodynamically stable and her acidosis is is continuously improving, patient is downgraded to floors for further management. Plan of care is discussed with pest control applicator Dr. Rocky Pyle, [email or web address] Documentation for date of: 04/30/25 Subjective Subjective Interval history: 89-year-old female with past medical history of Possible peripheral neuropathy paraplegic, bedbound, neurogenic bladder with incontinence, breast cancer status post right breast lumpectomy 25 years ago, endometriosis s/p hysterectomy, hypothyroidism, PAH, type 2 diabetes [id number], hypertension presented to the ED on 04/29/2025 with chief complaint of nausea/dry heaves and diarrhea with frequent changing diaper every 4 hours per patient's x 2 days ago. She also reported to have some chills. stated that patient has been having decreased p.o. intake. Endorses having chills. She denies any dysuria, coughing, chest pain, shortness of breath. She also reported to have shoulder pain and weakness in upper extremity. She follows Dr Tinoco as outpatient who is her primary care doctor. Interval history: 04/30/25 The patient is off pressors and has a stable blood glucose level after starting a D10 infusion. A Blanco catheter was inserted today, and the patient's urine output is 40 cc/hr. A CT of the abdomen revealed a 12mm calculus in the left renal pelvis without hydronephrosis, as well as diffuse, non-specific colitis, particularly in the sigmoid colon. Prostatitis and cystitis were also noted. There is concern for C. difficile infection, and a stool analysis is pending. Urinalysis showed significant bacteriuria and a positive leukocyte esterase, with a urine culture pending. The patient received 4 liters of intravenous fluids (2L NS and 2L LR) and drank 1 liter orally. A repeat BMP showed improved . [facility] was contacted regarding meal preparation at home to prevent C. difficile spread. The patient's antibiotics were switched from Zosyn to Rocephin, Flagyl, and oral Vancomycin. The patient is currently tolerating food and fluids. Patient stable for downgrade to medical floor now. Exam Vital Signs Temp Pulse Resp BP Pulse Ox O2 Del Method 98.1 F 96 15 123/51 L 95 Room Air 04/30/25 08:00 04/30/25 11:04/30/25 11:04/30/25 11:04/30/25 11:04/30/25 08:00 Narrative Exam GENERAL APPEARANCE: Elderly female in no acute distress. Saturating well on room air. HEENT: NC, AT. MMM. EOMI, clear conjunctiva, oropharynx clear. NECK: Supple without lymphadenopathy. No stiffness or restricted ROM. HEART: S1+S2. RRR. No m/r/g LUNGS: CTAB, moving air well. No crackles or wheezes are heard. ABDOMEN: Soft, nontender, nondistended with good bowel sounds heard. BACK: No CVAT, no obvious deformity. EXTREMITIES: Without cyanosis, clubbing or edema. NEUROLOGICAL: No focal neuro deficits. Alert and oriented x4. Moving upper extremities only, not moving lower extremities due to hx of neuropathy, sensations intact. CN II-XII intact. Patient bed-bound. GCS 15. Skin: Warm and dry without any rash. Psych: Appropriate mood and affect Objective Labs 05/04/25 04:23 05/04/25 04:23 Labs: Laboratory Results - last 24 hr 04/29/25 04/29/25 04/30/25 18:25 20:00 00:38 WBC 12.3 H RBC 4.35 Hgb 11.9 L Hct 37.8 MCV 87 MCH 27.4 MCHC 31.5 RDW Std Deviation 45.3 Plt Count 310 Neut % (Auto) 87 H Lymph % (Auto) 5 L [place] % (Auto) 6 Eos % (Auto) 0 Baso % (Auto) 0 Neut # (Auto) 10.8 H Lymph # (Auto) 0.6 L [place] # (Auto) 0.8 Eos # (Auto) 0.0 Baso # (Auto) 0.0 Immature Gran # (Auto) 0.13 H Absolute Nucleated RBC 0.00 Immature Gran % 1 H Nucleated RBC % 0 VBG pH 7.27 L VBG pCO2 38 VBG pO2 31 VBG O2 Sat (Ana) 54 L VBG Base Excess -9 L Sodium 134 L 134 L Potassium 5.7 H 5.6 H Chloride 99 101 Carbon Dioxide 17.0 L 15.8 L Anion Gap 18 H 17 H BUN 59 H 50 H Creatinine 3.0 H 3.4 H Estim Creat Clear Calc Not Performed. 11.8 L eGFR 15 L 13 L* BUN/Creatinine Ratio 20 15 Glucose 28 L* [address] Glu mg/dL 120 Hemoglobin A1c 5.8 Calculated Osmolality 280 279 Lactic Acid 5.9 H* Calcium 9.3 8.5 Corrected Calcium 9.5 Phosphorus 8.2 H Magnesium 1.9 Total Bilirubin < 0.2 L AST 23 ALT 18 Alkaline Phosphatase 49 Total Protein 7.3 Albumin 3.7 Globulin 3.6 H Albumin/Globulin Ratio 1.0 L TSH Ur Collection Type Catheter Urine Color [place] A Urine Clarity Turbid A Urine pH 6.0 Ur Specific [place] 1.020 Urine Protein 3+ A Urine Glucose (UA) Negative Urine Ketones Negative Urine Blood 3+ A Urine Nitrite Negative Urine Bilirubin Negative Urine Urobilinogen (Auto) 2.0 Ur Leukocyte Esterase Positive Urine RBC 498 H Urine WBC 1137 H Ur Squamous Epith Cells 16 H Urine Bacteria None Ur Random Creatinine 04/30/25 04/30/25 04/30/25 01:47 04:48 07:55 WBC 9.4 RBC 3.76 L Hgb 10.5 L Hct 33.4 L MCV 89 MCH 27.9 MCHC 31.4 RDW Std Deviation 46.4 H Plt Count 174 D Neut % (Auto) 83 H Lymph % (Auto) 6 L [place] % (Auto) 10 Eos % (Auto) 0 Baso % (Auto) 0 Neut # (Auto) 7.7 Lymph # (Auto) 0.6 L [place] # (Auto) 0.9 H Eos # (Auto) 0.0 Baso # (Auto) 0.0 Immature Gran # (Auto) 0.10 H Absolute Nucleated RBC 0.00 Immature Gran % 1 H Nucleated RBC % 0 VBG pH 7.27 L VBG pCO2 29 L VBG pO2 102 H D VBG O2 Sat (Ana) 99 H VBG Base Excess -12 L Sodium 137 Potassium 4.6 D Chloride 99 Carbon Dioxide 14.6 L* Anion Gap 23 H BUN 50 H Creatinine 3.4 H Estim Creat Clear Calc 11.7 L eGFR 13 L* BUN/Creatinine Ratio 15 Glucose [address] Glu mg/dL Hemoglobin A1c Calculated Osmolality 289 Lactic Acid 5.9 H* 12.0 H* 11.2 H* Calcium 8.5 Corrected Calcium 9.2 Phosphorus Magnesium 2.2 Total Bilirubin < 0.2 L AST 17 ALT 16 Alkaline Phosphatase 43 L Total Protein 5.9 Albumin 3.1 L D Globulin 2.8 Albumin/Globulin Ratio 1.1 L TSH 1.57 Ur Collection Type Urine Color Urine Clarity Urine pH Ur Specific [place] Urine Protein Urine Glucose (UA) Urine Ketones Urine Blood Urine Nitrite Urine Bilirubin Urine Urobilinogen (Auto) Ur Leukocyte Esterase Urine RBC Urine WBC Ur Squamous Epith Cells Urine Bacteria Ur Random Creatinine 04/30/25 04/30/25 08:53 11:00 WBC RBC Hgb Hct MCV MCH MCHC RDW Std Deviation Plt Count Neut % (Auto) Lymph % (Auto) [place] % (Auto) Eos % (Auto) Baso % (Auto) Neut # (Auto) Lymph # (Auto) [place] # (Auto) Eos # (Auto) Baso # (Auto) Immature Gran # (Auto) Absolute Nucleated RBC Immature Gran % Nucleated RBC % VBG pH VBG pCO2 VBG pO2 VBG O2 Sat (Ana) VBG Base Excess Sodium Potassium Chloride Carbon Dioxide Anion Gap BUN Creatinine Estim Creat Clear Calc eGFR BUN/Creatinine Ratio Glucose Estimated Ave Glu mg/dL Hemoglobin A1c Calculated Osmolality Lactic Acid 10.6 H* Calcium Corrected Calcium Phosphorus Magnesium Total Bilirubin AST ALT Alkaline Phosphatase Total Protein Albumin Globulin Albumin/Globulin Ratio TSH Ur Collection Type Urine Color Urine Clarity Urine pH Ur Specific [place] Urine Protein Urine Glucose (UA) Urine Ketones Urine Blood Urine Nitrite Urine Bilirubin Urine Urobilinogen (Auto) Ur Leukocyte Esterase Urine RBC Urine WBC Ur Squamous Epith Cells Urine Bacteria Ur Random Creatinine 29 L ABG Interpretation ABG results: 04/30/25 04/30/25 00:38 07:55 VBG pH 7.27 L 7.27 L VBG pCO2 38 29 L VBG pO2 31 102 H D VBG Base Excess -9 L -12 L Quality Measures Quality Measures VTE prophylaxis (Heparin subcu) Advance care planning discussed with:: patient Assessment & Plan Assessment Current Active Medications: Generic Name Dose Route Start Last Admin Trade Name Freq PRN Reason Stop Dose Admin Acetaminophen 650 mg 04/29/25 23:57 Acetaminophen 325 Mg Tablet PO 05/29/25 23:56 Q6H PRN Fever >101.5 Citric Acid/Sodium Citrate 30 ml 04/30/25 09:00 04/30/25 10:16 Citric Acid/Sodium Citr 15 Ml Udc (Bicitra) PO 05/30/25 08:59 30 ml BID TAWNY Administration Dextrose 25 ml 04/30/25 00:07 Dextrose 50%-Water Inj 50 Ml Syringe IV 05/30/25 00:06 Q15MIN PRN BG 50-70 responsive npo pt Dextrose 50 ml 04/30/25 00:07 Dextrose 50%-Water Inj 50 Ml Syringe IV 05/30/25 00:06 Q15MIN PRN BG <50 OR BG <70 & pt unresponsive Dextrose 50 ml 04/30/25 02:03 Dextrose 50%-Water Inj 50 Ml Syringe IV 05/30/25 02:02 Q15MIN PRN BG <50 OR BG <70 & pt unresponsive Glucagon 1 mg 04/30/25 00:07 Glucagon Inj 1 Mg Vial IM Q15MIN PRN BG <70, and no IV access Heparin Sodium (Porcine) 5,000 unit 04/30/25 00:15 04/30/25 14:17 Heparin Sod Inj 5000 Unit/Ml Vial SC 05/14/25 00:14 5,000 unit Q8HR TAWNY Administration Sodium Bicarbonate 88.23 meq/ 588.23 mls @ 100 mls/hr 04/30/25 12:36 04/30/25 14:42 Dextrose IV 05/30/25 12:35 100 mls/hr .Q5H53M TAWNY Administration Ceftriaxone Sodium/Dextrose 1 gm in 50 mls @ 100 mls/hr 04/30/25 14:15 04/30/25 14:20 Rocephin/D5w 1gm Iv Premix IV 05/07/25 14:14 100 mls/hr QDAY TAWNY Administration Levothyroxine Sodium 50 mcg 04/30/25 06:00 04/30/25 05:43 Levothyroxine Sodium 25 Mcg Tablet PO 05/30/25 05:59 50 mcg ACBR TAWNY Administration Metronidazole 500 mg 04/30/25 22:00 Metronidazole 250 Mg Tablet PO 05/07/25 21:59 TID TAWNY Ondansetron HCl 4 mg 04/29/25 23:57 Ondansetron Inj 2 Mg/Ml Inj 2 Ml IVP 05/29/25 23:56 Q6H PRN NAUSEA OR VOMITING Protocol Pantoprazole Sodium 40 mg 04/30/25 02:10 04/30/25 10:16 Pantoprazole Inj 40 Mg Vial IVP 05/30/25 02:09 40 mg QDAY TAWNY Administration Sertraline HCl 25 mg 04/30/25 21:00 Sertraline Hcl 25 Mg Tablet PO 05/30/25 20:59 HS TAWNY Sevelamer Carbonate 800 mg 04/30/25 08:00 04/30/25 12:12 Sevelamer Carbonate 800 Mg Tablet PO 05/30/25 07:59 800 mg TIDWM TAWNY Administration Vancomycin HCl 125 mg 04/30/25 17:00 Vancomycin 125 Mg Capsule PO 05/07/25 16:59 QID TAWNY Plan 89-year-old female with past medical history of possible peripheral neuropathy, paraplegia, bedbound, neurogenic bladder with incontinence, breast cancer status post right breast lumpectomy 25 years ago, endometriosis s/p hysterectomy, hypothyroidism, [id number] type 2 diabetes, hypertension presented with nausea/dry heaving and diarrhea, admitted for hypoglycemia, lactic acidosis with high anion gap metabolic acidosis with KALLI related to metformin/dehydration and UTI. Neurology No active issue #History of peripheral neuropathy #Paraplegic and bedbound post peripheral neuropathy - Frequent repositioning to avoid bedsores - No medication listed for neuropathy - MRI lumbar spine 2018: Diffuse lumbar degenerative disease. No significant acquired spinal stenosis #History of depression -Patient takes sertraline Treatment plan -Continue sertraline Cardiovascular #Hypotension #?Concern for Adrenal suppression DDx: ?Septic shock due to community-acquired pneumonia or UTI,lactic acidosis, AGMA Diagnostic Test: Follow-up with CBC, CMP, blood cultures and urine cultures Treatment Plan: -D/C Levophed -Continue antibiotics #?Pulmonary hypertension Per chart review, CT showed pulmonary arterial hypertension. She is not taking currently any medications. -No active intervention needed -Follows Dr. Livingston, natural history collections curator as outpatient #Lactic acidosis type B, improving -Related to metformin, KALLI, dehydration - LA 12 (highest) -> 7.6 Diagnostic test: Follow-up with lactic acid Treatment plan: -IV fluid -Hold home medications metformin Respiratory #Community accquired PNA -Patient denied any cough or shortness of breath. Saturating well on room air. -Diagnostic test CXR showed Atelectasis versus mild pneumonia left base Treatment Plan: - COVID was negative - Continue Ceftriaxone - Follow-up with blood cultures GI and F/E/N #Diarrhea #C diff #?Viral gastroenteritis -Patient reported that she has alternating bowel movements with constipation and diarrhea. Endorsed chills. No abdominal pain elicited on exam. -Patient takes protonix at home, no recent abx use in past 3 mon DDx: Viral gastroenteritis, IBS Diagnostic Test: Follow-up with stool culture and stool WBC, C diff Treatment Plan: -Encourage oral hydration -Electrolyte repletion -Contacted [facility] who are in charge of meal preps for the patient to enforce contact precautions to prevent C diff spread Renal #KALLI DDx: Likely prerenal due to dehydration, intrarenal due to medication/metformin -Patient reported to have loose stools from last 2 days. Was taking glipizide and metformin. Denies any blood in the stool. BUN 50 and creatinine 3.4 baseline creatinine 0.6 from November 2024 Received 2L NS and 2L LR, drank 1L Diagnostic tests: Renal ultrasound, urine electrolytes Currently making 40-60cc/hr since Blanco cath inserted Treatment plan -Continue LR 40cc/h -Avoid nephrotoxic agents -Renally dose medications -Strict PROSPER's -Nephro consulted, appreciate recs -Hold metformin #Asymptomatic pyuria #Nonobstructive renal pelvis stone -Patient denied any symptoms of burning or dysuria. -Urinalysis was positive for urine infection without bacteria with significant pyuria. -Left renal pelvis calculi 12mm, no hydronephrosis, no immediate concern for urgernt urology intervention Treatment plan - Continue IV Ceftriaxone - Follow-up with urine cultures #Hyperphosphatemia -Related to KALLI Diagnostic tests, CMP Treatment plan -Sevelamer 3 times daily #Urinary incontinence -Wear diaper for incontinence -Pure[place] for st in/outs Treatment plan: - Blanco cath placed (04/30 - #Anion gap metabolic acidosis DDx: Medications/metformin, KALLI stage IV, diabetes, RTA type IV possibly masked with anion gap due to lactic acid -VBG showed pH 7.27, PCO2 38, PO2 31 Pope formula: expected pco2 28-32 vbg pco2 38 Diagnostic Test: CMP, VBG Treatment Plan: - 3 ampoules of bicarb given x 1 -Treating underlying infection -Bicitra twice daily -Nephrology consulted, Dr. Tinoco, appreciate recommendations -Follow-up with renal ultrasound #Hyponatremia, resolved #Hyperkalemia, resolved -DDx: Related to KALLI, medications, RTA type IV? -Sodium 134 -> 137, potassium 5.6 -> 4.6 Diagnostic test: CMP, urine electrolytes Treatment plan: - IV fluids given -Kayexalate, breathing treatment x 2, calcium gluconate given - Monitor electrolytes and correct as necessary Heme #Normocytic anemia DDx: Nutrition deficiency Diagnostic Test: CBC Treatment Plan: -PRBC hemoglobin drops below 7 -Follow-up with CBC #Leukocytosis, resolved -WBC 12.3 -> 9.4 - Colitis, particularly of sigmoid DDx: Infection/UTI/community-acquired pneumonia Diagnostic tests: CBC, CT abdomen Treatment plan -Follow CBC - Started Ceftriaxone, Metronidazole, PO Vancomycin Endo #Persistent hypoglycemia, resolved #Type 2 diabetes, [id number]-[id number] -Patient takes metformin and glipizide at home. No insulin was reported. Blood sugars were persistently low around 20 to 50 mg/dl and increased to 136 mg/dl after starting D10 DDx: Related to glipizide/sulfonylurea Diagnostic Test: CMP Treatment Plan: -CHO consistent diet -Goal of blood sugar below 180 mg/dL -Blood sugar checks every q6h #Concern for Adrenal insufficency Initial presentation: hypotension 99/51, Hypoglycemia 28, hyponatremia 134, hyperkalemia 7.7, high BUN 50, low Bicarb 14.6 DDx: Infection, KALLI Diagnostic test: Consider AM cortisol and ACTH levels Treatment plan: -Consider starting hydrocortisone if not improving #History of hypothyroidism -Patient takes levothyroxine Treatment plan -Continue levothyroxine ID #?Community-acquired pneumonia #UTI #?C diff Diagnostic Test: Chest x-ray, urine analysis, and CT abdomen non-specific colitis sigmoid Treatment Plan: -Started IV Ceftriaxone 1g qay (04/30 - -Started Metronidazole 500mg PO TID (04/30 - -Started on PO Vancomycin 125mg QID (04/30 - -Zosyn renally dosed 2.25 g (04/30 - 04/30) -Follow-up with blood cultures and urine cultures Health Maintenance: DVT prophylaxis:Heparin sq GI prophylaxis: Protonix 40 IV daily Diet: carb consistent Blanco: blanco in place Lines: Peripherals Drips: none Vent: Not indicated CODE STATUS: DNR Reason of hospitalization: admitted for persistent hypoglycemia, lactic acidosis with high anion gap metabolic acidosis with KALLI related to metformin/dehydration and UTI. Case discussed with my attending Dr. Gregory Hidalgo, and senior resident, Dr. Tai Pyle PGY-2 Jayy Coronado MD PGY-1 Attending Provider Attestation/Addendum Patient seen and examined with the above resident, Jayy Coronado MD. I agree with the findings, assessment, and plan of care as documented except for any differences below. Patient with septic shock, intra-abdominal source suspected. Also remains bed bound with functional paraplegia. Prior imaging shows no spinal cord lesion. She is also incontinent for unclear reasons. Started on empiric antibiotics for infection from GI track and imaging confirmed presence of colitis, though this is nonspecific. Unlikely in advanced age to develop autoimmune etiology. We did contact her home health agency about risk of spreading infection as well. C. Diff testing and precautions in place until proven negative, low risk given no recent antibiotic exposure or hospitalization. and her live at home with j2ee engineer for 8 hours/ day. Patient successfully weaned off vasopressor support with additional volume. IVC large and non-collapsible on followup. Concern for adrenal insufficiency, not given hydrocortisone with low clinical suspicion based on biochemical analysis, normal K/ likely hypovolemic hyponatremia. Follow up cortisol .With pressors off for 6 hours, she is stable for transfer to the floor later this afternoon. Now tolerating PO intake well though continued diarrhea, keep up with insensible fluid losses. Total critical care time: I personally spent 40 minutes for review of physiologic parameters, directing plan of care, and counseling patient and family at the bedside. This is exclusive of time spent teaching housestaff or performing any separate billable procedures. Patient remained at significant risk for further morbidity/ mortality warranting close monitoring and care only available in the ICU. Critical care services required for severe sepsis/ septic shock, colitis, and acute renal failure.
[2025-04-30 16:45] LABS: Lactate (Lactic Acid) 7.6 mMol/L (0.4-2.0)
[2025-04-30 17:10] LABS: Anion Gap 19 (7-16); BUN/Creatinine Ratio 18 Ratio (12-20); Blood Urea Nitrogen 60 mg/dL (9-23); Calcium 7.6 mg/dL (8.3-10.6); Carbon Dioxide 19.2 mMol/L (20.0-31.0); Chloride 99 mMol/L (98-107); Creatinine (Component) 3.3 mg/dL (0.6-1.3); Estimated Creatinine Clearance 11.8 mL/min (>60); Glucose 84 mg/dL (74-106); Osmolality,Calculated 289 (275-295); Phosphorous 6.7 mg/dL (2.4-5.1); Potassium 4.0 mMol/L (3.4-5.1); Sodium 137 mMol/L (136-145); eGFR 13 See Note
[2025-04-30] MEDS: VANCOMYCIN 125 MG CAPSULE PO ×2 (17:24→21:59)
[2025-04-30] MEDS: RINGERS LACTATED 1000 ML 1,000 ML 125 ML IV (17:27)
[2025-04-30] MEDS: RINGERS LACTATED 1000 ML 1,000 ML 50 ML IV (17:30)
--- NOTE | 2025-04-30 18:27 | PD.RESPRO ---
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 Patient reported that she has dry heaves associated with recurrent episodes of diarrhea almost 1 every 4 hours. She denied any fever or chills denied any bleeding per rectum. She reported that she has episodic cycles of constipation for 3 days followed by diarrhea for 1 day. The symptoms has been going on for 1 year. Over 2 days ago she started to have severe episodes of diarrhea watery in consistency, no mucus or blood and no history of antibiotic use. Denied history of any sick contact. Patient on presentation found to be hypotensive blood pressure of 99/51, and was found to have WBC of 12.1, potassium of 5.7, anion gap of 18, lactic acid of 11. patient was noticed also to have serum creatinine of 3.4, it was noticed also that the patient has been taking metformin with her symptoms. CT scan showed diffuse nonspecific colitis especially in the sigmoid colon differentials would be Crohn's, ulcerative colitis, and recommended laparoscopy. Also found to have cystitis pattern, hepatomegaly 22 cm, left renal calculi 12 mm nonobstructing. Patient was admitted to the ICU for septic shock secondary to persistent diarrhea, also KALLI with severe acidosis, anion gap. Patient today has improved, off the vasopressors, on IV fluids, her diet was started, bicarb twice daily, lactic acid trended from 11-7.5. 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 Objective Labs 05/01/25 05:24 05/01/25 05:24 Labs: Laboratory Results - last 24 hr 04/29/25 04/29/25 04/30/25 18:25 20:00 00:38 WBC 12.3 H RBC 4.35 Hgb 11.9 L Hct 37.8 MCV 87 MCH 27.4 MCHC 31.5 RDW Std Deviation 45.3 Plt Count 310 Neut % (Auto) 87 H Lymph % (Auto) 5 L [place] % (Auto) 6 Eos % (Auto) 0 Baso % (Auto) 0 Neut # (Auto) 10.8 H Lymph # (Auto) 0.6 L [place] # (Auto) 0.8 Eos # (Auto) 0.0 Baso # (Auto) 0.0 Immature Gran # (Auto) 0.13 H Absolute Nucleated RBC 0.00 Immature Gran % 1 H Nucleated RBC % 0 VBG pH 7.27 L VBG pCO2 38 VBG pO2 31 VBG O2 Sat (Ana) 54 L VBG Base Excess -9 L Sodium 134 L 134 L Potassium 5.7 H 5.6 H Chloride 99 101 Carbon Dioxide 17.0 L 15.8 L Anion Gap 18 H 17 H BUN 59 H 50 H Creatinine 3.0 H 3.4 H Estim Creat Clear Calc Not Performed. 11.8 L eGFR 15 L 13 L* BUN/Creatinine Ratio 20 15 Glucose 28 L* [address] Glu mg/dL 120 Hemoglobin A1c 5.8 Calculated Osmolality 280 279 Lactic Acid 5.9 H* Calcium 9.3 8.5 Corrected Calcium 9.5 Phosphorus 8.2 H Magnesium 1.9 Total Bilirubin < 0.2 L AST 23 ALT 18 Alkaline Phosphatase 49 Total Protein 7.3 Albumin 3.7 Globulin 3.6 H Albumin/Globulin Ratio 1.0 L TSH Ur Collection Type Catheter Urine Color [place] A Urine Clarity Turbid A Urine pH 6.0 Ur Specific [place] 1.020 Urine Protein 3+ A Urine Glucose (UA) Negative Urine Ketones Negative Urine Blood 3+ A Urine Nitrite Negative Urine Bilirubin Negative Urine Urobilinogen (Auto) 2.0 Ur Leukocyte Esterase Positive Urine RBC 498 H Urine WBC 1137 H Ur Squamous Epith Cells 16 H Urine Bacteria None Ur Random Creatinine 04/30/25 04/30/25 04/30/25 01:47 04:48 07:55 WBC 9.4 RBC 3.76 L Hgb 10.5 L Hct 33.4 L MCV 89 MCH 27.9 MCHC 31.4 RDW Std Deviation 46.4 H Plt Count 174 D Neut % (Auto) 83 H Lymph % (Auto) 6 L [place] % (Auto) 10 Eos % (Auto) 0 Baso % (Auto) 0 Neut # (Auto) 7.7 Lymph # (Auto) 0.6 L [place] # (Auto) 0.9 H Eos # (Auto) 0.0 Baso # (Auto) 0.0 Immature Gran # (Auto) 0.10 H Absolute Nucleated RBC 0.00 Immature Gran % 1 H Nucleated RBC % 0 VBG pH 7.27 L VBG pCO2 29 L VBG pO2 102 H D VBG O2 Sat (Ana) 99 H VBG Base Excess -12 L Sodium 137 Potassium 4.6 D Chloride 99 Carbon Dioxide 14.6 L* Anion Gap 23 H BUN 50 H Creatinine 3.4 H Estim Creat Clear Calc 11.7 L eGFR 13 L* BUN/Creatinine Ratio 15 Glucose [address] Glu mg/dL Hemoglobin A1c Calculated Osmolality 289 Lactic Acid 5.9 H* 12.0 H* 11.2 H* Calcium 8.5 Corrected Calcium 9.2 Phosphorus Magnesium 2.2 Total Bilirubin < 0.2 L AST 17 ALT 16 Alkaline Phosphatase 43 L Total Protein 5.9 Albumin 3.1 L D Globulin 2.8 Albumin/Globulin Ratio 1.1 L TSH 1.57 Ur Collection Type Urine Color Urine Clarity Urine pH Ur Specific [place] Urine Protein Urine Glucose (UA) Urine Ketones Urine Blood Urine Nitrite Urine Bilirubin Urine Urobilinogen (Auto) Ur Leukocyte Esterase Urine RBC Urine WBC Ur Squamous Epith Cells Urine Bacteria Ur Random Creatinine 04/30/25 04/30/25 04/30/25 08:53 11:00 16:32 WBC RBC Hgb Hct MCV MCH MCHC RDW Std Deviation Plt Count Neut % (Auto) Lymph % (Auto) [place] % (Auto) Eos % (Auto) Baso % (Auto) Neut # (Auto) Lymph # (Auto) [place] # (Auto) Eos # (Auto) Baso # (Auto) Immature Gran # (Auto) Absolute Nucleated RBC Immature Gran % Nucleated RBC % VBG pH VBG pCO2 VBG pO2 VBG O2 Sat (Ana) VBG Base Excess Sodium 137 Potassium 4.0 D Chloride 99 Carbon Dioxide 19.2 L Anion Gap 19 H BUN 60 H Creatinine 3.3 H Estim Creat Clear Calc 11.8 L eGFR 13 L* BUN/Creatinine Ratio [address] Glu mg/dL Hemoglobin A1c Calculated Osmolality 289 Lactic Acid 10.6 H* 7.6 H* Calcium 7.6 L Corrected Calcium Phosphorus 6.7 H Magnesium Total Bilirubin AST ALT Alkaline Phosphatase Total Protein Albumin Globulin Albumin/Globulin Ratio TSH Ur Collection Type Urine Color Urine Clarity Urine pH Ur Specific Candor Urine Protein Urine Glucose (UA) Urine Ketones Urine Blood Urine Nitrite Urine Bilirubin Urine Urobilinogen (Auto) Ur Leukocyte Esterase Urine RBC Urine WBC Ur Squamous Epith Cells Urine Bacteria Ur Random Creatinine 29 L ABG Interpretation ABG results: 04/30/25 04/30/25 00:38 07:55 VBG pH 7.27 L 7.27 L VBG pCO2 38 29 L VBG pO2 31 102 H D VBG Base Excess -9 L -12 L Quality Measures Quality Measures VTE prophylaxis (Heparin subcu) Advance care planning discussed with:: patient and spouse Assessment & Plan Assessment Current Active Medications: Generic Name Dose Route Start Last Admin Trade Name Freq PRN Reason Stop Dose Admin Acetaminophen 650 mg 04/29/25 23:57 Acetaminophen 325 Mg Tablet PO 05/29/25 23:56 Q6H PRN Fever >101.5 Citric Acid/Sodium Citrate 30 ml 04/30/25 09:00 04/30/25 10:16 Citric Acid/Sodium Citr 15 Ml Udc (Bicitra) PO 05/30/25 08:59 30 ml BID TAWNY Administration Dextrose 25 ml 04/30/25 00:07 Dextrose 50%-Water Inj 50 Ml Syringe IV 05/30/25 00:06 Q15MIN PRN BG 50-70 responsive npo pt Dextrose 50 ml 04/30/25 00:07 Dextrose 50%-Water Inj 50 Ml Syringe IV 05/30/25 00:06 Q15MIN PRN BG <50 OR BG <70 & pt unresponsive Dextrose 50 ml 04/30/25 02:03 Dextrose 50%-Water Inj 50 Ml Syringe IV 05/30/25 02:02 Q15MIN PRN BG <50 OR BG <70 & pt unresponsive Glucagon 1 mg 04/30/25 00:07 Glucagon Inj 1 Mg Vial IM Q15MIN PRN BG <70, and no IV access Heparin Sodium (Porcine) 5,000 unit 04/30/25 00:15 04/30/25 14:17 Heparin Sod Inj 5000 Unit/Ml Vial SC 05/14/25 00:14 5,000 unit Q8HR TAWNY Administration Ceftriaxone Sodium/Dextrose 1 gm in 50 mls @ 100 mls/hr 04/30/25 14:15 04/30/25 17:00 Rocephin/D5w 1gm Iv Premix IV 05/07/25 14:14 Infused QDAY TAWNY Infusion Lactated Ringer's 1,000 mls @ 50 mls/hr 04/30/25 17:38 04/30/25 17:30 Lactated Ringers IV 05/01/25 13:22 50 mls/hr .Q20H ONE Administration Sodium Bicarbonate 88.23 meq/ 588.23 mls @ 50 mls/hr 04/30/25 18:30 Dextrose IV 05/30/25 18:29 .[id number] TAWNY Levothyroxine Sodium 50 mcg 04/30/25 06:00 04/30/25 05:43 Levothyroxine Sodium 25 Mcg Tablet PO 05/30/25 05:59 50 mcg ACBR TAWNY Administration Metronidazole 500 mg 04/30/25 22:00 Metronidazole 250 Mg Tablet PO 05/07/25 21:59 TID TAWNY Ondansetron HCl 4 mg 04/29/25 23:57 Ondansetron Inj 2 Mg/Ml Inj 2 Ml IVP 05/29/25 23:56 Q6H PRN NAUSEA OR VOMITING Protocol Pantoprazole Sodium 40 mg 04/30/25 02:10 04/30/25 10:16 Pantoprazole Inj 40 Mg Vial IVP 05/30/25 02:09 40 mg QDAY TAWNY Administration Sertraline HCl 25 mg 04/30/25 21:00 Sertraline Hcl 25 Mg Tablet PO 05/30/25 20:59 HS TAWNY Sevelamer Carbonate 800 mg 04/30/25 08:00 04/30/25 17:24 Sevelamer Carbonate 800 Mg Tablet PO 05/30/25 07:59 800 mg TIDWM TAWNY Administration Sodium Bicarbonate 650 mg 04/30/25 21:00 Sodium Bicarbonate 650 Mg Tablet PO 05/30/25 20:59 BID TAWNY Vancomycin HCl 125 mg 04/30/25 17:00 04/30/25 17:24 Vancomycin 125 Mg Capsule PO 05/07/25 16:59 125 mg QID TAWNY Administration Plan Summary: a 89-year-old female patient with 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 Patient was admitted for treatment of multifactorial shock most likely secondary to sepsis and hypovolemia. Assessment and plan #Shock distributive versus hypovolemic (resolved) #KALLI #Lactic acidosis #High anion gap metabolic acidosis Lactic acid elevated 5.9, bicarb 17, anion gap 18. Most likely secondary to use of metformin in the setting of KALLI VBG pH 7.27, PCO2 38, pO2 31. No compensated respiratory alkalosis. Creatinine 3.0 on admission. No history of kidney disease. Likely prerenal as patient has not been eating or drinking for the past 2 days. - Continue IV LR 50 mL/h ?Strict in and out -Sodium bicarb p.o. twice daily -Avoid nephrotoxins -Monitor renal panel -Renally dosed medications -Hold any RICHARD/ARB/diuretics -Consult nephrology, appreciate recommendations #Acute diarrhea: Patient presented with multiple episodes of diarrhea started 2 days before presentation. No blood, no mucus, no fever or chills. No history of antibiotic use. CT scan showed diffuse nonspecific colitis especially in the sigmoid colon differentials would be Crohn's, ulcerative colitis, and recommended laparoscopy. Also found to have cystitis pattern, hepatomegaly 22 cm, left renal calculi 12 mm nonobstructing. - Follow-up on the C. difficile results, follow-up on the stool study ? Contact precaution until C. difficile come back negative ? Continue ceftriaxone, Flagyl, vancomycin empirically ? If diarrhea continue consider replating fluid loss #Hyperkalemia resolved #Asymptomatic pyuria #Concern for UTI UA on admission positive for leukocyte esterase, negative nitrate, RBC 498, WBC 1137, no bacteria however will treat empirically. Patient is asymptomatic. - Pending blood culture - Pending urine culture - IV ceftriaxone 1 g (04/30- #Hyperphosphatemia Likely secondary to KALLI. - Ordered Sevelamer - Continue to monitor #DM2, [id number] #Depression #Hypothyroidism Well-controlled last A1c is 5.8, patient on glimepiride and metformin at home. On presentation her bedside glucose was 28 from peripheral sample most likely secondary to her shock. When sample showed blood sugar was 82. Plan ?Bedside glucose check ACHS - Hold home glipizide and metformin - Will start SSI once stable #Peripheral neuropathy #Paralysis of lower extremities #Bedbound #Urinary incontinence Wears diaper. No home medications for neuropathy. #Pulmonary artery hypertension Noted on previous CTA in February 2022. Patient is not taking medications for PAH however is on chlorthalidone as needed for hypertension. -Hold diuresis at this time - Consider consulting cardiology Dr. Livingston Health Maintenance Disposition: Telemetry DVT prophylaxis: Heparin GI prophylaxis: None Diet: Carb consistent diet with renal modification. CODE STATUS: DNR - Patient's plan and care discussed with my attending, Dr. Yonis Medley MD Internal Medicine PGY-3 Attending Provider Attestation/Addendum Erika Allen DO, attest that I was physically present for the lopez portions of the service and evaluated the patient with the resident and I reviewed and discussed the case with the resident and agree with the resident's findings and plans of care as documented above Patient is an 89-year-old female past medical history of peripheral neuropathy, paralysis from the waist down, neurogenic bladder, bladder incontinence, breast cancer status post bilateral lumpectomy, PAH, type II DM, hypothyroid who was brought to the ED due to worsening lethargy and 4 days of persistent diarrhea. Per at bedside, patient has been having very poor p.o. intake for the past 4 days with very loose stools. She has not been on any recent antibiotics or recent travel. Upon evaluation in the ED, patient was found to have hypotension, severe hyperglycemia with blood glucose of 28, potassium of 5.7, anion gap of 18, bicarb of 14.6. ABG showed evidence of metabolic acidosis with pH of 7.27 and lactic acidosis of 5.9. Patient was subsequently admitted to the ICU due to requirement for D10 drip and vasopressors. She has noted to have acute renal failure with creatinine of 3 and baseline creatinine of 0.6. Patient has also been on a bicarb drip due to severe lactic acidosis resulting in anion gap metabolic acidosis. Patient has been weaned off vasopressors and bicarb has been improving. Nephrology has been following due to acute renal failure. Suspect ATN secondary to hypovolemia. A CT abdomen pelvis had been done in the ED showing diffuse nonspecific colitis which is severe in the sigmoid colon. She is also noted to have large amounts of stool in the rectum with thickening of rectal wall. She is also noted of cystitis and 12 mm calculus in the left renal pelvis. Patient denied any abdominal pain throughout hospitalization and prior to presentation. She is also noted to glipizide and metformin at home, which likely exacerbated her lactic acidosis in the setting of acute renal failure. Patient has received 4 L of IV fluid and noted to have peripheral edema. Will monitor urine output closely and continue with gentle IV fluids as patient has been tolerating diet as well. Will monitor blood glucose closely, but patient has not been requiring any more of the D10 drip. She has been empirically started on vancomycin p.o. due to concern for C. difficile colitis. Acidosis has been improving, but lactate remains 6.6, will continue to trend. Will follow with nephrology recommendations.
[2025-04-30] MEDS: Sodium Bicarb 8.4% 50ml Vial* 88.23 MEQ in DEXTROSE 5%-WATER 500 ML 50 MEQ IV (18:30)
[2025-04-30 18:50] LABS: INR 1.0 (0.9-1.3); Partial Thromboplastin Time 20.2 Seconds (22.0-36.0); Prothrombin Time 11.4 Seconds (9.0-12.2)
[2025-04-30 19:01] LABS: LDH (Lactate Dehydrogenase) 157 U/L (120-246)
[2025-04-30 19:41] LABS: Reflex Lactate? Y
[2025-04-30 20:34] LABS: Lactic Acid, 3 HR 6.6 mMol/L (0.4-2.0)
[2025-04-30] MEDS: HYDROcodone/APAP 5/325 TABLET 1 TAB PO (21:58)
[2025-04-30] MEDS: SODIUM BICARBONATE 650 MG TABLET PO (21:59)
[2025-04-30] MEDS: SERTRALINE HCL 25 MG TABLET PO (21:59)
[2025-05-01] VITALS (7 sets, daily range): BP systolic 108–134; BP diastolic 48–61; PULSE 81–90; RESP 10–95; TEMP 36.2–37; O2SAT 94–98; BMI 32.5
[2025-05-01] MEDS: VANCOMYCIN 125 MG CAPSULE PO ×2 (05:13→11:12)
[2025-05-01] MEDS: LEVOTHYROXINE SODIUM 25 MCG TABLET 50 MCG PO (05:13)
[2025-05-01 05:45] LABS: Basophils # (Auto) 0.0 Thou/mm3 (0.0-0.2); Basophils % (Auto) 0 % (0-2.5); Eosinophils # (Auto) 0.1 Thou/mm3 (0.0-0.5); Eosinophils % (Auto) 2 % (0-10); Hematocrit 29.7 % (36.0-46.0); Hemoglobin 9.7 g/dL (12.0-16.0); Immature Granulocytes Auto 0.04 Thou/mm3 (0.00-0.00); Lymphocytes # (Auto) 0.6 Thou/mm3 (1.0-4.8); Lymphocytes % (Auto) 12 % (10-50); Mean Corpuscular HGB Conc 32.7 g/dl (31.0-37.0); Mean Corpuscular Hemoglobin 27.6 pg (25.0-35.0); Mean Corpuscular Volume 84 fL (80-100); Monocytes # (Auto) 0.7 Thou/mm3 (0.0-0.8); Monocytes % (Auto) 13 % (0-12); Neutrophils # (Auto) 3.6 Thou/mm3 (1.8-7.7); Neutrophils % (Auto) 71 % (37-80); Nucleated Red Blood Cell # 0.00 Thou/mm3 (0.00-0.00); Nucleated Red Blood Cell % 0 /100 WBC (0); Platelet Count 197 Thou/mm3 (140-440); RDW Standard Deviation 44.0 fL (36.4-46.3); Red Blood Count 3.52 Miln/mm3 (4.00-5.20); White Blood Count 5.1 Thou/mm3 (3.6-11.0)
[2025-05-01 06:29] LABS: Chloride,Urine Random 92.9 mMol/L (55.0-125.0); Potassium,Urine Random < 10 mMol/L (12-62); Sodium,Urine Random 128.0 mMol/L (20.0-110.0)
[2025-05-01 06:35] LABS: Alanine Aminotransferase 20 U/L (10-49); Albumin, Serum 2.9 gm/dL (3.4-4.8); Albumin/Globulin Ratio 1.2 (1.2-2.2); Alkaline Phosphatase 41 U/L (46-116); Anion Gap 17 (7-16); Aspartate Amino Transferase 21 U/L (0-34); BUN/Creatinine Ratio 14 Ratio (12-20); Bilirubin,Total < 0.2 mg/dL (0.3-1.2); Blood Urea Nitrogen 46 mg/dL (9-23); Calcium 7.7 mg/dL (8.3-10.6); Calcium (Corrected) 8.6 mg/dL (8.5-10.1); Carbon Dioxide 23.7 mMol/L (20.0-31.0); Chloride 95 mMol/L (98-107); Creatinine (Component) 3.2 mg/dL (0.6-1.3); Estimated Creatinine Clearance 12.4 mL/min (>60); Globulin 2.4 gm/dL (2.3-3.5); Glucose 71 mg/dL (74-106); Magnesium 2.1 mg/dL (1.6-2.6); Osmolality,Calculated 281 (275-295); Phosphorous 6.0 mg/dL (2.4-5.1); Potassium 3.6 mMol/L (3.4-5.1); Sodium 136 mMol/L (136-145); Total Protein 5.3 gm/dL (5.7-8.2); eGFR 14 See Note
[2025-05-01] MEDS: SEVELAMER CARBONATE 800 MG TABLET PO ×2 (07:56→11:12)
[2025-05-01] MEDS: Sodium Bicarb 8.4% 50ml Vial* 88.23 MEQ in DEXTROSE 5%-WATER 500 ML 50 MEQ IV (07:56)
--- NOTE | 2025-05-01 07:56 | ESPR_ITS ---
<Statement entered by Kalli Medley MD - 05/01/25 16:59> Patient was seen and examined at bedside. Agree with assessment and plan on the note. - Patient's plan and care discussed with my attending, Dr. Yonis Medley MD Internal Medicine PGY-3 Documentation for date of: 05/01/25 Subjective Subjective Interval history: Patient was interviewed with and LOAN PROCESSOR in the room. Appears to be in good spirits. Evidence of BM, solid brown stool. and patient confirm that patient is back to baseline and no longer having loose stools at this time. also has concern for R lateral hip ulceration. Patient has a sacral pad over a well healed ulcer as well. Patient denies any chest pain, SOB, nausea, vomiting, fevers. Exam Vital Signs Temp Pulse Resp BP Pulse Ox O2 Del Method 98.6 F 81 19 127/54 L 98 Room Air 05/01/25 00:00 05/01/25 04:00 05/01/25 00:00 05/01/25 00:00 05/01/25 00:00 05/01/25 00:00 Narrative Exam GEN: AOx3, able to speak full sentences HEENT: NC/AC, PERRLA, oral mucosa moist, neck supple CVS: RRR, S1-S2 present, no murmurs appreciated RESP: CTAB GI: soft,non distended, non tender, NBS MSK: Unable to move her lower extremities, no lower extremity edema SKIN: warm and dry. Left lateral ulcer on superior buttock, pink granulation tissue, weeping serous fluid, roughly the size of a quarter. CESSPOOL CLEANER: CN II-XII and Sensation grossly intact. Objective Labs 05/01/25 05:24 05/01/25 05:24 Labs: Laboratory Results - last 24 hr 04/30/25 04/30/25 04/30/25 07:55 08:53 11:00 WBC RBC Hgb Hct MCV MCH MCHC RDW Std Deviation Plt Count Neut % (Auto) Lymph % (Auto) [place] % (Auto) Eos % (Auto) Baso % (Auto) Neut # (Auto) Lymph # (Auto) [place] # (Auto) Eos # (Auto) Baso # (Auto) Immature Gran # (Auto) Absolute Nucleated RBC Immature Gran % Nucleated RBC % PT INR APTT VBG pH 7.27 L VBG pCO2 29 L VBG pO2 102 H D VBG O2 Sat (Ana) 99 H VBG Base Excess -12 L Sodium Potassium Chloride Carbon Dioxide Anion Gap BUN Creatinine Estim Creat Clear Calc eGFR BUN/Creatinine Ratio Glucose Calculated Osmolality Lactic Acid 11.2 H* 10.6 H* Calcium Corrected Calcium Phosphorus Magnesium Total Bilirubin AST ALT Alkaline Phosphatase Lactate Dehydrogenase Total Protein Albumin Globulin Albumin/Globulin Ratio Ur Random Creatinine 29 L Ur Random Sodium Ur Random Potassium Ur Random Chloride 04/30/25 04/30/25 04/30/25 16:32 18:27 20:11 WBC RBC Hgb Hct MCV MCH MCHC RDW Std Deviation Plt Count Neut % (Auto) Lymph % (Auto) [place] % (Auto) Eos % (Auto) Baso % (Auto) Neut # (Auto) Lymph # (Auto) [place] # (Auto) Eos # (Auto) Baso # (Auto) Immature Gran # (Auto) Absolute Nucleated RBC Immature Gran % Nucleated RBC % PT 11.4 INR 1.0 APTT 20.2 L VBG pH VBG pCO2 VBG pO2 VBG O2 Sat (Ana) VBG Base Excess Sodium 137 Potassium 4.0 D Chloride 99 Carbon Dioxide 19.2 L Anion Gap 19 H BUN 60 H Creatinine 3.3 H Estim Creat Clear Calc 11.8 L eGFR 13 L* BUN/Creatinine Ratio 18 Glucose 84 D Calculated Osmolality 289 Lactic Acid 7.6 H* 6.6 H* Calcium 7.6 L Corrected Calcium Phosphorus 6.7 H Magnesium Total Bilirubin AST ALT Alkaline Phosphatase Lactate Dehydrogenase 157 Total Protein Albumin Globulin Albumin/Globulin Ratio Ur Random Creatinine Ur Random Sodium Ur Random Potassium Ur Random Chloride 05/01/25 05/01/25 04:40 05:24 WBC 5.1 D RBC 3.52 L Hgb 9.7 L Hct 29.7 L MCV 84 MCH 27.6 MCHC 32.7 RDW Std Deviation 44.0 Plt Count 197 Neut % (Auto) 71 Lymph % (Auto) 12 [place] % (Auto) 13 H Eos % (Auto) 2 Baso % (Auto) 0 Neut # (Auto) 3.6 Lymph # (Auto) 0.6 L [place] # (Auto) 0.7 Eos # (Auto) 0.1 Baso # (Auto) 0.0 Immature Gran # (Auto) 0.04 H Absolute Nucleated RBC 0.00 Immature Gran % 1 H Nucleated RBC % 0 PT INR APTT VBG pH VBG pCO2 VBG pO2 VBG O2 Sat (Ana) VBG Base Excess Sodium 136 Potassium 3.6 Chloride 95 L Carbon Dioxide 23.7 Anion Gap 17 H BUN 46 H Creatinine 3.2 H Estim Creat Clear Calc 12.4 L eGFR 14 L* BUN/Creatinine Ratio 14 Glucose 71 L Calculated Osmolality 281 Lactic Acid Calcium 7.7 L Corrected Calcium 8.6 Phosphorus 6.0 H Magnesium 2.1 Total Bilirubin < 0.2 L AST 21 ALT 20 Alkaline Phosphatase 41 L Lactate Dehydrogenase Total Protein 5.3 L Albumin 2.9 L Globulin 2.4 Albumin/Globulin Ratio 1.2 Ur Random Creatinine Ur Random Sodium 128.0 H Ur Random Potassium < 10 L Ur Random Chloride 92.9 ABG Interpretation ABG results: 04/30/25 04/30/25 00:38 07:55 VBG pH 7.27 L 7.27 L VBG pCO2 38 29 L VBG pO2 31 102 H D VBG Base Excess -9 L -12 L Quality Measures Quality Measures VTE prophylaxis (Heparin subcu) Advance care planning discussed with:: other Assessment & Plan Assessment Current Active Medications: Generic Name Dose Route Start Last Admin Trade Name Freq PRN Reason Stop Dose Admin Acetaminophen 650 mg 04/29/25 23:57 Acetaminophen 325 Mg Tablet PO 05/29/25 23:56 Q6H PRN Fever >101.5 Hydrocodone Bitart/Acetaminophen 1 tab 04/30/25 20:46 04/30/25 21:58 Hydrocodone/Apap 5/325 Tablet PO 05/05/25 20:45 1 tab Q6HR PRN Administration PAIN SCALE 4-10(Mod-Sev Citric Acid/Sodium Citrate 30 ml 04/30/25 09:00 04/30/25 21:59 Citric Acid/Sodium Citr 15 Ml Udc (Bicitra) PO 05/30/25 08:59 30 ml BID TAWNY Administration Dextrose 25 ml 04/30/25 00:07 Dextrose 50%-Water Inj 50 Ml Syringe IV 05/30/25 00:06 Q15MIN PRN BG 50-70 responsive npo pt Dextrose 50 ml 04/30/25 00:07 Dextrose 50%-Water Inj 50 Ml Syringe IV 05/30/25 00:06 Q15MIN PRN BG <50 OR BG <70 & pt unresponsive Dextrose 50 ml 04/30/25 02:03 Dextrose 50%-Water Inj 50 Ml Syringe IV 05/30/25 02:02 Q15MIN PRN BG <50 OR BG <70 & pt unresponsive Glucagon 1 mg 04/30/25 00:07 Glucagon Inj 1 Mg Vial IM Q15MIN PRN BG <70, and no IV access Heparin Sodium (Porcine) 5,000 unit 04/30/25 00:15 05/01/25 05:12 Heparin Sod Inj 5000 Unit/Ml Vial SC 05/14/25 00:14 Not Given Q8HR TAWNY Ceftriaxone Sodium/Dextrose 1 gm in 50 mls @ 100 mls/hr 04/30/25 14:15 04/30/25 17:00 Rocephin/D5w 1gm Iv Premix IV 05/07/25 14:14 Infused QDAY TAWNY Infusion Lactated Ringer's 1,000 mls @ 50 mls/hr 04/30/25 17:38 04/30/25 17:30 Lactated Ringers IV 05/01/25 13:22 50 mls/hr .Q20H ONE Administration Sodium Bicarbonate 88.23 meq/ 588.23 mls @ 50 mls/hr 04/30/25 18:30 05/01/25 07:56 Dextrose IV 05/30/25 18:29 50 mls/hr .[id number] TAWNY Administration Levothyroxine Sodium 50 mcg 04/30/25 06:00 05/01/25 05:13 Levothyroxine Sodium 25 Mcg Tablet PO 05/30/25 05:59 50 mcg ACBR TAWNY Administration Metronidazole 500 mg 04/30/25 22:00 05/01/25 05:13 Metronidazole 250 Mg Tablet PO 05/07/25 21:59 500 mg TID TAWNY Administration Ondansetron HCl 4 mg 04/29/25 23:57 Ondansetron Inj 2 Mg/Ml Inj 2 Ml IVP 05/29/25 23:56 Q6H PRN NAUSEA OR VOMITING Protocol Pantoprazole Sodium 40 mg 04/30/25 02:10 04/30/25 10:16 Pantoprazole Inj 40 Mg Vial IVP 05/30/25 02:09 40 mg QDAY TAWNY Administration Sertraline HCl 25 mg 04/30/25 21:00 04/30/25 21:59 Sertraline Hcl 25 Mg Tablet PO 05/30/25 20:59 25 mg HS TAWNY Administration Sevelamer Carbonate 800 mg 04/30/25 08:00 04/30/25 17:24 Sevelamer Carbonate 800 Mg Tablet PO 05/30/25 07:59 800 mg TIDWM TAWNY Administration Sodium Bicarbonate 650 mg 04/30/25 21:00 04/30/25 21:59 Sodium Bicarbonate 650 Mg Tablet PO 05/30/25 20:59 650 mg BID TAWNY Administration Vancomycin HCl 125 mg 04/30/25 17:00 05/01/25 05:13 Vancomycin 125 Mg Capsule PO 05/07/25 16:59 125 mg QID TAWNY Administration Plan Summary: a 89-year-old female patient with 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 Patient was admitted for treatment of multifactorial shock most likely secondary to sepsis and hypovolemia. 05/01 patient status has improved to near baseline. No evidence of loose stools on exam. Awaiting C. Diff result is negative. Assessment and plan #Shock distributive versus hypovolemic (resolved) #KALLI #Lactic acidosis #High anion gap metabolic acidosis Lactic acid elevated 5.9, bicarb 17, anion gap 18. Most likely secondary to use of metformin in the setting of KALLI VBG pH 7.27, PCO2 38, pO2 31. No compensated respiratory alkalosis. Creatinine 3.0 on admission. No history of kidney disease. Likely prerenal as patient has not been eating or drinking for the past 2 days. Which converted to intrinsic renal injury/ ATN as noted by FeNA >10% and urine sodium >40mEq/L - Continue IV LR 50 mL/h ?Strict in and out -Sodium bicarb (Bicitra 30mL) p.o. twice daily -Avoid nephrotoxins -Monitor renal panel -Renally dosed medications -Hold any RICHARD/ARB/diuretics -Consult nephrology, appreciate recommendations #Acute diarrhea: Patient presented with multiple episodes of diarrhea started 2 days before presentation. No blood, no mucus, no fever or chills. No history of antibiotic use. CT scan showed diffuse nonspecific colitis especially in the sigmoid colon differentials would be Crohn's, ulcerative colitis, and recommended laparoscopy. Also found to have cystitis pattern, hepatomegaly 22 cm, left renal calculi 12 mm nonobstructing. - Follow-up on the C. difficile results: Negative ? Discontinue contact precaution; D/C oral vancomycin (05/01) ? Continue ceftriaxone, Flagyl, empirically ? If diarrhea continue consider repleting fluid loss #lateral buttocks pressure ulcer Left lateral ulcer on superior buttock, pink granulation tissue, weeping serous fluid, roughly the size of a quarter. Plan: Wound care referral sent (05/01) #Hyperkalemia resolved #Asymptomatic pyuria #Concern for UTI UA on admission positive for leukocyte esterase, negative nitrate, RBC 498, WBC 1137, no bacteria however will treat empirically. Patient is asymptomatic. - Pending blood culture - Pending urine culture - IV ceftriaxone 1 g (04/30- #Hyperphosphatemia Likely secondary to KALLI. - Ordered Sevelamer - Continue to monitor #DM2, [id number] #Depression #Hypothyroidism Well-controlled last A1c is 5.8, patient on glimepiride and metformin at home. On presentation her bedside glucose was 28 from peripheral sample most likely secondary to her shock. When sample showed blood sugar was 82. Plan ?Bedside glucose check ACHS - Hold home glipizide and metformin - Will start SSI once stable #Peripheral neuropathy #Paralysis of lower extremities #Bedbound #Urinary incontinence Wears diaper. No home medications for neuropathy. #Pulmonary artery hypertension Noted on previous CTA in February 2022. Patient is not taking medications for PAH however is on chlorthalidone as needed for hypertension. -Hold diuresis at this time - Consider consulting cardiology Dr. Livingston Health Maintenance Disposition: Telemetry DVT prophylaxis: Heparin GI prophylaxis: None Diet: Carb consistent diet with renal modification. CODE STATUS: DNR - Patient's plan and care discussed with my attending, Dr. Somers, and supervising resident Dr. Kalli Medley. Blaise Stewart MD Internal Medicine PGY-1 Attending Provider Attestation/Addendum I, Erika Somers, DO, attest that I was physically present for the lopez portions of the service and evaluated the patient with the resident and I reviewed and discussed the case with the resident and agree with the resident's findings and plans of care as documented above Patient seen and eval this a.m. No acute events overnight. She states that she is feeling well, but does not have much of an appetite for the food here at the hospital. Blood glucose was low this morning, but it improved with orange juice and food. Lactic acidosis remains the same as yesterday at 6.6. Renal function appears slightly improved. C. difficile is negative. Will DC oral vancomycin. Continue with IV fluid hydration and monitor urine output closely. No peripheral edema noted. Case was discussed with nephrology as well. Will continue Bicitra, discontinue sodium bicarbonate tabs as is bicarb level is now within normal limits
[2025-05-01] MEDS: CITRIC ACID/SODIUM CITR 15 ML UDC (BICITRA) 30 ML PO (08:00)
[2025-05-01] MEDS: cefTRIAXone/D5w 1gm IV premix 1 GM/50 ML BAG IV (08:00)
[2025-05-01] MEDS: SODIUM BICARBONATE 650 MG TABLET PO (08:00)
[2025-05-01 09:54] LABS: Lactate (Lactic Acid) 6.6 mMol/L (0.4-2.0)
--- NOTE | 2025-05-01 10:20 | PD.NEPHPROG ---
Documentation for date of: 05/01/25 Subjective Subjective Interval history: Ms. May is a 89-year-old female with past medical history of peripheral neuropathy (paralyzed from the waist down, bedbound), neurogenic bladder with incontinence, breast cancer status post bilateral lumpectomy 25 years ago, endometriosis status post hysterectomy, hypothyroidism, hypertension, DM2 [id number], and obesity who presented to the ED on 04/29/2025 with chief complaint of nausea, vomiting, decreased p.o. intake and diarrhea for the past 2 days. Also has not been able to eat and drink for the past 2 days. Denies dysuria, coughing, fever. No sick contacts. Patient denies history of cardiac or renal disease. Patient is bedbound with neurogenic bladder, wears diaper. Also has upper extremity weakness due to bilateral shoulder pain. ED Course-- Initial vitals were BP 99/51, HR 79, RR 16, temp 98.8 F, 93% on room air -Labs significant for WBC 12.3, hemoglobin 11.9, sodium 134, potassium 5.7, anion gap 18, glucose 28, BUN 59, creatinine 3.0 Imaging included CXR showed atelectasis versus mild pneumonia left base. -In the ED, patient was given NS 1 L IV x 1, dextrose 50 mL x 1, ceftriaxone 1 g x 1 -Patient was admitted for severe hypoglycemia with high anion metabolic acidosis. Due to hypotension patient was started on pressors and transferred to ICU. Patient currently seen in ICU. Renal consultation requested for KALLI and metabolic acidosis. Despite giving 2 L of fluids her urine output was very low. 04/30/2025WBC 9.4, hemoglobin 10.5, platelets 174, sodium 137, potassium 4.6, bicarbonate 14.6, BUN 50, creatinine 3.4, GFR 13, glucose 136, lactic acid significantly elevated at 12, calcium 9.2, phosphorus 8.2, LFTs normal, albumin 3.1, TSH 1.57 urinalysis shows pyuria urine anion gap positive ABG showing pH 7.27, pCO2 29, base excess -12, anion gap 23 05/01/2025 patient moved out of ICU. Still having loose stools. C. difficile came back negative. Urine potassium less than 10. Blood sugar 126. Blood pressure 134/59, heart rate 88. Off pressors. White count 5.1, hemoglobin 9.7, platelets 197. INR 1.0. Sodium 136, potassium 3.6, bicarbonate 23.7, BUN 46, creatinine 3.2, GFR 14, glucose 71, lactic acid 6.6, calcium 8.6, phosphorus 6, magnesium 2.1, LFTs normal, albumin 2.9 Review of Systems Review of Systems Narrative Review of Systems: CONSTITUTIONAL: Patient denies any fever, chills. Complaining of fatigue HEENT: Denies any visual disturbances or hearing problems. CARDIOVASCULAR: Patient denies any chest pain, shortness of breath. c/o swelling in the lower extremities. PULMONARY: Patient denies any shortness of breath, cough. GASTROINTESTINAL: Complaining of abdominal discomfort, nausea, vomiting, loose stools GENITOURINARY: Has urine incontinence SKIN: Small decubiti on the right buttock MUSCULOSKELETAL: bedbound mostly NEUROLOGICAL: Patient unable to move her legs due to severe neuropathy and is bedbound PSYCHIATRIC: Denies any depression or anxiety. LYMPHATICS : No lymphadenopathy Exam Vital Signs Temp Pulse Resp BP Pulse Ox O2 Del Method 36.3 C 88 10 L 134/59 H 94 L Room Air 05/01/25 12:00 05/01/25 12:00 05/01/25 12:00 05/01/25 12:00 05/01/25 12:05/01/25 12:00 Narrative Exam GENERAL APPEARANCE: Patient seems to be comfortable, adequately hydrated and nourished. Obese lady seen in telemetry. Daughter, at bedside HEENT: EOMI, PERRLA NECK: Neck supple, no JVD or bruit CARDIOVASCULAR: Heart regular, 2/6 murmurs LUNGS/CHEST: Chest clear to auscultation. No rales, rhonchi, wheezing ABDOMEN: Soft, nontender, nondistended. No masses. Normal bowel sounds. ++ Loose stools EXTREMITIES: No edema, clubbing or cyanosis. lipidemia + SKIN: small decub on the bottom MUSCULOSKELETAL: Unable to move her legs PSYCHIATRIC: Normal mood, affect LYMPHATICS: No lymphadenopathy noted NEUROLOGICAL : Alert and awake. Unable to move her lower extremities Objective Labs 05/01/25 05:24 05/01/25 05:24 Labs: Laboratory Results - last 24 hr 04/30/25 04/30/25 04/30/25 16:32 16:50 18:27 WBC RBC Hgb Hct MCV MCH MCHC RDW Std Deviation Plt Count Neut % (Auto) Lymph % (Auto) [place] % (Auto) Eos % (Auto) Baso % (Auto) Neut # (Auto) Lymph # (Auto) [place] # (Auto) Eos # (Auto) Baso # (Auto) Immature Gran # (Auto) Absolute Nucleated RBC Immature Gran % Nucleated RBC % PT 11.4 INR 1.0 APTT 20.2 L Sodium 137 Potassium 4.0 D Chloride 99 Carbon Dioxide 19.2 L Anion Gap 19 H BUN 60 H Creatinine 3.3 H Estim Creat Clear Calc 11.8 L eGFR 13 L* BUN/Creatinine Ratio 18 Glucose 84 D Calculated Osmolality 289 Lactic Acid 7.6 H* Calcium 7.6 L Corrected Calcium Phosphorus 6.7 H Magnesium Total Bilirubin AST ALT Alkaline Phosphatase Lactate Dehydrogenase 157 Total Protein Albumin Globulin Albumin/Globulin Ratio Ur Random Sodium Ur Random Potassium Ur Random Chloride Stl C. diff Tox B Gene Negative 04/30/25 05/01/25 05/01/25 20:11 04:40 05:24 WBC 5.1 D RBC 3.52 L Hgb 9.7 L Hct 29.7 L MCV 84 MCH 27.6 MCHC 32.7 RDW Std Deviation 44.0 Plt Count 197 Neut % (Auto) 71 Lymph % (Auto) 12 [place] % (Auto) 13 H Eos % (Auto) 2 Baso % (Auto) 0 Neut # (Auto) 3.6 Lymph # (Auto) 0.6 L [place] # (Auto) 0.7 Eos # (Auto) 0.1 Baso # (Auto) 0.0 Immature Gran # (Auto) 0.04 H Absolute Nucleated RBC 0.00 Immature Gran % 1 H Nucleated RBC % 0 PT INR APTT Sodium 136 Potassium 3.6 Chloride 95 L Carbon Dioxide 23.7 Anion Gap 17 H BUN 46 H Creatinine 3.2 H Estim Creat Clear Calc 12.4 L eGFR 14 L* BUN/Creatinine Ratio 14 Glucose 71 L Calculated Osmolality 281 Lactic Acid 6.6 H* Calcium 7.7 L Corrected Calcium 8.6 Phosphorus 6.0 H Magnesium 2.1 Total Bilirubin < 0.2 L AST 21 ALT 20 Alkaline Phosphatase 41 L Lactate Dehydrogenase Total Protein 5.3 L Albumin 2.9 L Globulin 2.4 Albumin/Globulin Ratio 1.2 Ur Random Sodium 128.0 H Ur Random Potassium < 10 L Ur Random Chloride 92.9 Stl C. diff Tox B Gene 05/01/25 09:26 WBC RBC Hgb Hct MCV MCH MCHC RDW Std Deviation Plt Count Neut % (Auto) Lymph % (Auto) [place] % (Auto) Eos % (Auto) Baso % (Auto) Neut # (Auto) Lymph # (Auto) [place] # (Auto) Eos # (Auto) Baso # (Auto) Immature Gran # (Auto) Absolute Nucleated RBC Immature Gran % Nucleated RBC % PT INR APTT Sodium Potassium Chloride Carbon Dioxide Anion Gap BUN Creatinine Estim Creat Clear Calc eGFR BUN/Creatinine Ratio Glucose Calculated Osmolality Lactic Acid 6.6 H* Calcium Corrected Calcium Phosphorus Magnesium Total Bilirubin AST ALT Alkaline Phosphatase Lactate Dehydrogenase Total Protein Albumin Globulin Albumin/Globulin Ratio Ur Random Sodium Ur Random Potassium Ur Random Chloride Stl C. diff Tox B Gene ABG Interpretation ABG results: 04/30/25 04/30/25 00:38 07:55 VBG pH 7.27 L 7.27 L VBG pCO2 38 29 L VBG pO2 31 102 H D VBG Base Excess -9 L -12 L Assessment & Plan Assessment and plan (1) Acute renal failure (ARF): Status: Acute (2) Dehydration: Status: Acute (3) UTI (urinary tract infection): Status: Acute (4) Pneumonia: Status: Acute (5) Metabolic acidosis: Status: Acute (6) Diarrhea: Status: Acute (7) Lactic acidosis: Status: Acute (8) Diabetes: Status: Acute (9) Sepsis: Status: Acute (10) Shock: Status: Acute (11) Anemia: Status: Acute Additional Assessment & Plan Additional Plan: (1) Acute renal failure (ARF): Status: Acute Assessment and plan: Acute renal failure secondary to prerenal azotemia. Patient with persistent hypotension and decreased urinary output. Clinically looks rather hypovolemic. Recommended for the team to continue with gentle IV fluids. Plan of care discussed with at bedside, CT scan showed large renal calculi with no hydronephrosis. Renal ultrasound showed CKD changes. (2) Dehydration: Status: Acute Assessment and plan: Continue with IV fluids (3) UTI (urinary tract infection): Status: Acute Assessment and plan: On antibiotics (4) Pneumonia: Status: Acute Assessment and plan: On antibiotics (5) Metabolic acidosis: Status: Acute Assessment and plan: Anion gap metabolic acidosis-secondary to lactic acidosis and renal failure. Currently on Bicitra Gap slowly improving (6) Diarrhea: Status: Acute Assessment and plan: Noted significant diarrhea. Check for C. difficile. Fluids given (7) Lactic acidosis: Status: Acute Assessment and plan: Lactic acidosis from hypotension and also from the metformin. Continue with Bicitra, liquids (8) Diabetes: Status: Acute Assessment and plan: Accu-Cheks, sliding scale. Blood sugars better (9) Sepsis: Status: Acute Assessment and plan: Sepsis secondary to possible UTI . off pressors. Continue with IV fluids and supportive therapy with antibiotics (10) Shock: Status: Acute Assessment and plan: Septic shock needing pressors. Resolved. Pending cultures. (11) Anemia: Status: Acute Assessment and plan: Anemia for renal failure Thank you Dr. Somers for allowing me to participate in the care of Ms. May
[2025-05-01] MEDS: DEXTROSE 5%-LACTATED RINGERS 1,000 ML 100 ML IV (11:12)
[2025-05-01 12:48] LABS: Reflex Lactate? Y
[2025-05-01 13:26] LABS: Clostridium Difficile PCR Negative (Negative)
--- NOTE | 2025-05-01 15:36 | PC.SS ---
This is 89-year-old, , female who presented to the ED for nausea, vomiting, diarrhea. Patient appeared alert and oriented to self, place and situation. Patient appeared pleasant. Patient reported that she resides at home with her , Efren. Patient has been bedbound for the last 5 years. Patient has caregiving services through [facility] (Friday through Friday, from 0900 to 1700). Patient has a silvia lift, manual and power wheelchair, hospital bed, and eliot chair. Patient assigned her or daughter, Dominique (phone: [phone]) as her medical decision maker. Patient's PCP is Dr. Tinoco. When medically clear, patient will return home; she might require transportation.
[2025-05-01] MEDS: CALCIUM ACETATE 667 MG TABLET PO (16:43)
[2025-05-01 17:04] LABS: Lactate (Lactic Acid) 4.1 mMol/L (0.4-2.0)
[2025-05-01 19:52] LABS: Reflex Lactate? Y
[2025-05-01 21:20] LABS: Lactic Acid, 3 HR 4.4 mMol/L (0.4-2.0)
[2025-05-01] MEDS: SERTRALINE HCL 25 MG TABLET PO (21:33)
[2025-05-01] MEDS: HYDROcodone/APAP 5/325 TABLET 1 TAB PO (22:56)
[2025-05-02] VITALS (9 sets, daily range): BP systolic 107–137; BP diastolic 51–67; PULSE 74–128; RESP 12–92; TEMP 36.1–36.4; O2SAT 92–96; BMI 32.5
[2025-05-02 01:38] LABS: Lactate (Lactic Acid) 2.7 mMol/L (0.4-2.0)
[2025-05-02 04:37] LABS: Reflex Lactate? Y
[2025-05-02] MEDS: LEVOTHYROXINE SODIUM 25 MCG TABLET 50 MCG PO (05:19)
[2025-05-02] MEDS: ACETAMINOPHEN 325 MG TABLET 650 MG PO (05:22)
[2025-05-02 06:14] LABS: Basophils # (Auto) 0.0 Thou/mm3 (0.0-0.2); Basophils % (Auto) 1 % (0-2.5); Eosinophils # (Auto) 0.3 Thou/mm3 (0.0-0.5); Eosinophils % (Auto) 6 % (0-10); Hematocrit 30.5 % (36.0-46.0); Hemoglobin 9.9 g/dL (12.0-16.0); Immature Granulocytes Auto 0.03 Thou/mm3 (0.00-0.00); Lymphocytes # (Auto) 0.7 Thou/mm3 (1.0-4.8); Lymphocytes % (Auto) 14 % (10-50); Mean Corpuscular HGB Conc 32.5 g/dl (31.0-37.0); Mean Corpuscular Hemoglobin 27.7 pg (25.0-35.0); Mean Corpuscular Volume 85 fL (80-100); Monocytes # (Auto) 0.5 Thou/mm3 (0.0-0.8); Monocytes % (Auto) 11 % (0-12); Neutrophils # (Auto) 3.2 Thou/mm3 (1.8-7.7); Neutrophils % (Auto) 68 % (37-80); Nucleated Red Blood Cell # 0.00 Thou/mm3 (0.00-0.00); Nucleated Red Blood Cell % 0 /100 WBC (0); Platelet Count 188 Thou/mm3 (140-440); RDW Standard Deviation 43.9 fL (36.4-46.3); Red Blood Count 3.58 Miln/mm3 (4.00-5.20); White Blood Count 4.7 Thou/mm3 (3.6-11.0)
--- NOTE | 2025-05-02 06:50 | ESPR_ITS ---
Documentation for date of: 05/02/25 Subjective Subjective Interval history: Ms. 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 intake and diarrhea for the past 2 days. Also has not been able to eat and drink for the past 2 days. Denies dysuria, coughing, fever. No sick contacts. Patient denies history of cardiac or renal disease. Patient is bedbound with neurogenic bladder, wears diaper. Also has upper extremity weakness due to bilateral shoulder pain. ED Course-- Initial vitals were BP 99/51, HR 79, RR 16, temp 98.8 F, 93% on room air -Labs significant for WBC 12.3, hemoglobin 11.9, sodium 134, potassium 5.7, anion gap 18, glucose 28, BUN 59, creatinine 3.0 Imaging included CXR showed atelectasis versus mild pneumonia left base. -In the ED, patient was given NS 1 L IV x 1, dextrose 50 mL x 1, ceftriaxone 1 g x 1 -Patient was admitted for severe hypoglycemia with high anion metabolic acidosis. Due to hypotension patient was started on pressors and transferred to ICU. Patient currently seen in ICU. Renal consultation requested for KALLI and metabolic acidosis. Despite giving 2 L of fluids her urine output was very low. 04/30/2025WBC 9.4, hemoglobin 10.5, platelets 174, sodium 137, potassium 4.6, bicarbonate 14.6, BUN 50, creatinine 3.4, GFR 13, glucose 136, lactic acid significantly elevated at 12, calcium 9.2, phosphorus 8.2, LFTs normal, albumin 3.1, TSH 1.57 urinalysis shows pyuria urine anion gap positive ABG showing pH 7.27, pCO2 29, base excess -12, anion gap 23 05/01/2025 patient moved out of ICU. Still having loose stools. C. difficile came back negative. Urine potassium less than 10. Blood sugar 126. Blood pressure 134/59, heart rate 88. Off pressors. White count 5.1, hemoglobin 9.7, platelets 197. INR 1.0. Sodium 136, potassium 3.6, bicarbonate 23.7, BUN 46, creatinine 3.2, GFR 14, glucose 71, lactic acid 6.6, calcium 8.6, phosphorus 6, magnesium 2.1, LFTs normal, albumin 2.9 05/02/2025 patient seen and examined at bedside. Patient reports not having any more diarrhea. C. difficile results are negative. Potassium levels this morning are low at 2.8 given 40 p.o. X1 and IV repeat CMP at 1400 hrs. no HD today. UOP 3200. DC Chavarria, placed PureWick. No HD today. Exam Vital Signs Temp Pulse Resp BP Pulse Ox O2 Del Method 97.3 F 74 14 117/60 93 L Room Air 05/02/25 04:00 05/02/25 04:00 05/02/25 04:00 05/02/25 04:00 05/02/25 04:00 05/02/25 04:00 Narrative Exam GENERAL APPEARANCE: Patient seems to be comfortable, adequately hydrated and nourished. Obese lady seen in telemetry. at bedside HEENT: EOMI, PERRLA NECK: Neck supple, no JVD or bruit CARDIOVASCULAR: Heart regular, 2/6 murmurs LUNGS/CHEST: Chest clear to auscultation. No rales, rhonchi, wheezing ABDOMEN: Soft, nontender, nondistended. No masses. Normal bowel sounds. Loose stools resolved. : Chavarria in place EXTREMITIES: No edema, clubbing or cyanosis. lipidemia + SKIN: small decub on the bottom MUSCULOSKELETAL: Unable to move her legs PSYCHIATRIC: Normal mood, affect LYMPHATICS: No lymphadenopathy noted NEUROLOGICAL : Alert and awake. Unable to move her lower extremities Objective Labs 05/03/25 05:34 05/03/25 05:34 Labs: Laboratory Results - last 24 hr 04/30/25 05/01/25 05/01/25 16:50 09:26 16:47 WBC RBC Hgb Hct MCV MCH MCHC RDW Std Deviation Plt Count Neut % (Auto) Lymph % (Auto) [place] % (Auto) Eos % (Auto) Baso % (Auto) Neut # (Auto) Lymph # (Auto) [place] # (Auto) Eos # (Auto) Baso # (Auto) Immature Gran # (Auto) Absolute Nucleated RBC Immature Gran % Nucleated RBC % Lactic Acid 6.6 H* 4.1 H* Stl C. diff Tox B Gene Negative 05/01/25 05/02/25 05/02/25 20:19 01:26 04:58 WBC 4.7 RBC 3.58 L Hgb 9.9 L Hct 30.5 L MCV 85 MCH 27.7 MCHC 32.5 RDW Std Deviation 43.9 Plt Count 188 Neut % (Auto) 68 Lymph % (Auto) 14 [place] % (Auto) 11 Eos % (Auto) 6 Baso % (Auto) 1 Neut # (Auto) 3.2 Lymph # (Auto) 0.7 L [place] # (Auto) 0.5 Eos # (Auto) 0.3 Baso # (Auto) 0.0 Immature Gran # (Auto) 0.03 H Absolute Nucleated RBC 0.00 Immature Gran % 1 H Nucleated RBC % 0 Lactic Acid 4.4 H* 2.7 H Stl C. diff Tox B Gene ABG Interpretation ABG results: 04/30/25 04/30/25 00:38 07:55 VBG pH 7.27 L 7.27 L VBG pCO2 38 29 L VBG pO2 31 102 H D VBG Base Excess -9 L -12 L Quality Measures Quality Measures VTE prophylaxis (Heparin subcu) Advance care planning discussed with:: patient and spouse Assessment & Plan Assessment Current Active Medications: Generic Name Dose Route Start Last Admin Trade Name Freq PRN Reason Stop Dose Admin Acetaminophen 650 mg 04/29/25 23:57 05/02/25 05:22 Acetaminophen 325 Mg Tablet PO 05/29/25 23:56 650 mg Q6H PRN Administration Fever >101.5 Hydrocodone Bitart/Acetaminophen 1 tab 04/30/25 20:46 05/01/25 22:56 Hydrocodone/Apap 5/325 Tablet PO 05/05/25 20:45 1 tab Q6HR PRN Administration PAIN SCALE 4-10(Mod-Sev Calcium Acetate 667 mg 05/01/25 17:30 05/01/25 16:43 Calcium Acetate 667 Mg Tablet PO 05/31/25 17:29 667 mg TIDWM TAWNY Administration Citric Acid/Sodium Citrate 30 ml 05/02/25 09:00 Citric Acid/Sodium Citr 15 Ml Udc (Bicitra) PO 06/01/25 08:59 DAILY TAWNY Dextrose 25 ml 04/30/25 00:07 Dextrose 50%-Water Inj 50 Ml Syringe IV 05/30/25 00:06 Q15MIN PRN BG 50-70 responsive npo pt Dextrose 50 ml 04/30/25 00:07 Dextrose 50%-Water Inj 50 Ml Syringe IV 05/30/25 00:06 Q15MIN PRN BG <50 OR BG <70 & pt unresponsive Dextrose 50 ml 04/30/25 02:03 Dextrose 50%-Water Inj 50 Ml Syringe IV 05/30/25 02:02 Q15MIN PRN BG <50 OR BG <70 & pt unresponsive Glucagon 1 mg 04/30/25 00:07 Glucagon Inj 1 Mg Vial IM Q15MIN PRN BG <70, and no IV access Heparin Sodium (Porcine) 5,000 unit 04/30/25 00:15 05/02/25 05:17 Heparin Sod Inj 5000 Unit/Ml Vial SC 05/14/25 00:14 Not Given Q8HR TAWNY Ceftriaxone Sodium/Dextrose 1 gm in 50 mls @ 100 mls/hr 04/30/25 14:15 05/01/25 08:00 Rocephin/D5w 1gm Iv Premix IV 05/07/25 14:14 100 mls/hr QDAY TAWNY Administration Levothyroxine Sodium 50 mcg 04/30/25 06:00 05/02/25 05:19 Levothyroxine Sodium 25 Mcg Tablet PO 05/30/25 05:59 50 mcg ACBR TAWNY Administration Metronidazole 500 mg 04/30/25 22:00 05/02/25 05:19 Metronidazole 250 Mg Tablet PO 05/07/25 21:59 500 mg TID TAWNY Administration Ondansetron HCl 4 mg 04/29/25 23:57 Ondansetron Inj 2 Mg/Ml Inj 2 Ml IVP 05/29/25 23:56 Q6H PRN NAUSEA OR VOMITING Protocol Pantoprazole Sodium 40 mg 05/02/25 09:00 Pantoprazole 40 Mg Tablet PO 06/01/25 08:59 QDAY TAWNY Protocol Sertraline HCl 25 mg 04/30/25 21:00 05/01/25 21:33 Sertraline Hcl 25 Mg Tablet PO 05/30/25 20:59 25 mg HS TAWNY Administration Plan 89-year-old female patient with 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 Patient was admitted for treatment of multifactorial shock most likely secondary to sepsis and hypovolemia. C. difficile negative. Loose stools were resolved. #Acute renal failure Creatinine 3.0 from 3.2 BUN 40 from 46 Acute renal failure secondary to prerenal azotemia. Patient with persistent hypotension and decreased urinary output now improved. Clinically looks rather euvolemic . CT scan showed large renal colliculi with no hydronephrosis. Renal ultrasound showed CKD changes. Plan: -No HD today -Avoid nephrotoxic drugs -Daily CMP #Hypokalemia K 2.8 -Replete potassium, follow-up on 1400-hour renal panel, and replete as needed #Dehydration -Encourage p.o. intake #UTI Urine culture pending -Continue 1 g ceftriaxone #Pneumonia -Continue 1 g ceftriaxone #Metabolic acidosis-resolved #Lactic acidosis Lactic acid 1.7 Anion gap metabolic acidosis secondary to lactic acidosis and renal failure Query secondary to metformin. Plan: -Continue Bicitra -C. difficile negative #Acute diarrhea: #DM2, [id number] #Depression #Hypothyroidism #lateral buttocks pressure ulcer #Peripheral neuropathy #Paralysis of lower extremities #Bedbound #Urinary incontinence #Pulmonary artery hypertension Management as per primary team Plan discussed with nephrology attending Dr. Earnest Stewart MD Internal Medicine PGY-1 Attending Provider Attestation/Addendum Patient seen and examined with resident physician Dr. Stewart. Note reviewed, agree with findings and recommendations. Patient resting comfortably. Patient still having weakness in the lower extremities. Does have diarrhea. On C. difficile precautions. Plan of care discussed with her . Creatinine improving.
[2025-05-02 06:51] LABS: Alanine Aminotransferase 16 U/L (10-49); Albumin, Serum 3.0 gm/dL (3.4-4.8); Albumin/Globulin Ratio 1.1 (1.2-2.2); Alkaline Phosphatase 40 U/L (46-116); Anion Gap 12 (7-16); Aspartate Amino Transferase < 10 U/L (0-34); BUN/Creatinine Ratio 13 Ratio (12-20); Bilirubin,Total 0.2 mg/dL (0.3-1.2); Blood Urea Nitrogen 40 mg/dL (9-23); Calcium 8.3 mg/dL (8.3-10.6); Calcium (Corrected) 9.1 mg/dL (8.5-10.1); Carbon Dioxide 28.5 mMol/L (20.0-31.0); Chloride 98 mMol/L (98-107); Creatinine (Component) 3.0 mg/dL (0.6-1.3); Estimated Creatinine Clearance 13.2 mL/min (>60); Globulin 2.7 gm/dL (2.3-3.5); Glucose 132 mg/dL (74-106); Magnesium 2.1 mg/dL (1.6-2.6); Osmolality,Calculated 287 (275-295); Phosphorous 4.5 mg/dL (2.4-5.1); Potassium 2.8 mMol/L (3.4-5.1); Sodium 138 mMol/L (136-145); Total Protein 5.7 gm/dL (5.7-8.2); eGFR 15 See Note
[2025-05-02 08:09] LABS: Lactic Acid, 3 HR 1.7 mMol/L (0.4-2.0)
[2025-05-02] MEDS: POTASSIUM CHLORIDE 10% 20 MEQ/15 ML UDC 40 MEQ GT (08:19)
[2025-05-02] MEDS: POTASSIUM CHLORIDE 10% 20 MEQ/15 ML UDC GT (08:19)
[2025-05-02] MEDS: cefTRIAXone/D5w 1gm IV premix 1 GM/50 ML BAG IV (08:23)
[2025-05-02] MEDS: CITRIC ACID/SODIUM CITR 15 ML UDC (BICITRA) 30 ML PO (08:24)
[2025-05-02] MEDS: CALCIUM ACETATE 667 MG TABLET PO ×3 (08:24→17:08)
[2025-05-02] MEDS: PANTOPRAZOLE 40 MG TABLET PO (08:24)
[2025-05-02] MEDS: POTASSIUM CHL 10 mEq IVPB 10 MEQ/100 ML BAG 100 MEQ IV (08:35)
--- NOTE | 2025-05-02 08:40 | EKG_ITS ---
[facility] Test Date: 2025-05-02 Pat Name: ALLIE ROMO [facility] Gender: Female Senior Government Program Analyst: JOSÉ MIGUEL : 1935 Requested By: aNtty Ken Order Number: [id number] Reading MD: Natty Ken Measurements Intervals [place] Rate: 120 P: [place]: QRS: 95 QRSD: 129 T: 15 QT: 345 QTc: 488 Interpretive Statements ATRIAL FLUTTER/TACHYCARDIA WITH RAPID VENTRICULAR RESPONSE BORDERLINE RIGHT AXIS DEVIATION MODERATE INTRAVENTRICULAR CONDUCTION DELAY MODERATE ST DEPRESSION No previous ECG available for comparison /store/S0/[id number].pdf
[2025-05-02] MEDS: HYDROcodone/APAP 5/325 TABLET 1 TAB PO ×2 (09:05→16:09)
[2025-05-02] MEDS: ONDANSETRON INJ 2 MG/ML INJ 2 ML 4 MG IVP (09:14)
[2025-05-02] MEDS: METOPROLOL SUCCINATE XL 25 MG TABCR 50 MG PO (11:35)
[2025-05-02] MEDS: HEPARIN SOD INJ 5000 UNIT/ML VIAL SC ×2 (11:36→23:40)
[2025-05-02] MEDS: SCOPOLAMINE 1 MG TDSY TOP (11:47)
[2025-05-02] MEDS: POTASSIUM CHL 10 mEq IVPB 10 MEQ/100 ML BAG 50 MEQ IV ×3 (11:51→16:10)
--- NOTE | 2025-05-02 11:53 | XR_ITS ---
Examination: AP chest single view Technique one AP portable sitting chest single view Date and time: May 02, 2025 1342 hours Comparison April 29, 2025 INDICATIONS: Shortness of breath today. FINDINGS: Atelectasis versus early pneumonia left base Right lung clear Normal heart size Moderate thoracic dextroscoliosis Prominent osteopenia IMPRESSION: Atelectasis versus early pneumonia left base
--- NOTE | 2025-05-02 11:53 | EKG_ITS ---
[facility] Test Date: 2025-05-02 Pat Name: ALLIE ROMO Department: Room: [facility] Gender: Female Candle Molder: EMIR : 1935 Requested By: Blaise Stewart Order Number: [id number] Reading MD: Blaise Stewart Measurements Intervals [place] Rate: 107 P: [place]: QRS: 75 QRSD: 130 T: 10 QT: 361 QTc: 484 Interpretive Statements ATRIAL FIBRILLATION WITH RAPID VENTRICULAR RESPONSE MODERATE INTRAVENTRICULAR CONDUCTION DELAY ABNORMAL RHYTHM ECG Compared to ECG 05/02/2025 08:58:47 Atrial flutter no longer present ST (T wave) deviation no longer present /store/S0/[id number].pdf
[2025-05-02 12:59] LABS: Anion Gap 11 (7-16); BUN/Creatinine Ratio 11 Ratio (12-20); Blood Urea Nitrogen 33 mg/dL (9-23); Calcium 8.1 mg/dL (8.3-10.6); Carbon Dioxide 27.8 mMol/L (20.0-31.0); Chloride 98 mMol/L (98-107); Creatinine (Component) 2.9 mg/dL (0.6-1.3); Estimated Creatinine Clearance 13.7 mL/min (>60); Glucose 229 mg/dL (74-106); Osmolality,Calculated 288 (275-295); Potassium 4.2 mMol/L (3.4-5.1); Sodium 137 mMol/L (136-145); eGFR 15 See Note
[2025-05-02 13:02] LABS: Troponin I 0.222 ng/mL (0.0-0.045)
--- NOTE | 2025-05-02 14:23 | PC.SS ---
Rounding Note: ICU downgrade. Cultures are pending. D/C within 1-2 days.
--- NOTE | 2025-05-02 16:03 | PD.IMCONS ---
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, bedbound), neurogenic bladder with incontinence, breast cancer status post bilateral lumpectomy 25 years ago, endometriosis status post hysterectomy, hypothyroidism, hypertension, DM2 [id number]-fugvubpnv, and obesity Patient was seen in the ER with nausea / vomiting / and poor intake subsequently diagnosed as having hypoglycemia and acute renal failure cardiology consult requested as pt developed rapid atrial fibrillation Currently HR improved form 110 ; to 81 troponin .22 pt denies cardiac symptom cc:: cc: Daija Boyd MD Meds Home Medications and Allergies Home Medications ?Medication ?Instructions ?Recorded ?Confirmed ?Type solifenacin 10 mg tablet (Vesicare) 10 mg PO QDAY 05/20/19 04/30/25 History Held on 04/30/25. Instructions: Doctor's Order chlorthalidone 25 mg tablet 1 tab PO QAM 03/12/22 04/30/25 History glipizide 5 mg tablet 1 tab PO BID 03/12/22 04/30/25 History levothyroxine 75 mcg tablet 1 tab PO QDAY 03/12/22 04/30/25 History Held on 04/30/25. Instructions: Duplicate metoprolol succinate 50 mg 1 tab PO QDAY 03/12/22 04/30/25 History tablet,extended release 24 hr pantoprazole 20 mg tablet,delayed 1 tab PO QDAY 03/12/22 04/30/25 History release potassium chloride 20 mEq 1 tab PO MWF 03/12/22 04/30/25 History tablet,extended release pregabalin 75 mg capsule 1 cap PO QDAY 03/12/22 04/30/25 History Held on 04/30/25. Instructions: Doctor's Order sertraline 25 mg tablet 1 tab PO QDAY 03/12/22 04/30/25 History diphenoxylate-atropine 2.5 1 tab PO BID 04/30/25 04/30/25 History mg-0.025 mg tablet levothyroxine 50 mcg tablet 50 mcg PO QAM 04/30/25 04/30/25 History (Euthyrox) metformin 500 mg tablet 500 mg PO BID 04/30/25 04/30/25 History mupirocin 2 % topical ointment 1 applic topical PRN PRN Body sores 04/30/25 04/30/25 History torsemide 20 mg tablet 20 mg PO MWF 04/30/25 04/30/25 History tramadol 50 mg tablet 50 mg PO QDAY PRN pain 04/30/25 04/30/25 History Allergies Allergy/AdvReac Type Severity Reaction Status Date / Time NKA* Allergy Uncoded 05/20/19 09:14 Exam Vital Signs Temp Pulse Resp BP Pulse Ox O2 Del Method O2 Flow Rate 97.6 F 81 14 107/67 96 Nasal Cannula 1 05/02/25 15:45 05/02/25 15:45 05/02/25 15:45 05/02/25 15:45 05/02/25 15:45 05/02/25 15:45 05/02/25 15:45 Routine HEENT Exam Head: Present normocephalic and atraumatic Eye: Present EOMI and PERRL ENT: Present mucous membranes moist Routine Neck Exam Neck: Present supple and trachea midline Routine Respiratory Exam Respiratory: Present chest non-tender, lungs clear, normal breath sounds and no resp distress Routine Cardiovascular Exam Cardiovascular: Present RRR Routine Abdominal Exam Abdominal: Present soft and normoactive bowel sounds Routine Extremities Exam Extremities: Present full ROM Routine Skin Exam Skin: Present intact, dry and warm Routine Neurological Exam Neurological: Present alert, oriented X3 and CN II-XII intact Routine Psychiatric Exam Psychiatric: Present normal affect and normal thought process Results Labs 05/02/25 04:58 05/02/25 12:06 Labs: Short CBC 05/02/25 Range/Units 04:58 WBC 4.7 (3.6-11.0) Thou/mm3 Hgb 9.9 L (12.0-16.0) g/dL Hct 30.5 L (36.0-46.0) % Plt Count 188 (140-440) Thou/mm3 BMP 05/02/25 05/02/25 04:58 12:06 Sodium 138 137 Potassium 2.8 L D 4.2 D Chloride 98 98 Carbon Dioxide 28.5 27.8 BUN 40 H 33 H Creatinine 3.0 H 2.9 H Glucose 132 H D 229 H D Calcium 8.3 8.1 L Cardiac Enzymes 05/02/25 Range/Units 12:06 Troponin I 0.222 H* (0.0-0.045) ng/mL Liver Function 05/02/25 Range/Units 04:58 Total Bilirubin 0.2 L (0.3-1.2) mg/dL AST < 10 (0-34) U/L ALT 16 (10-49) U/L Alkaline Phosphatase 40 L (46-116) U/L Albumin 3.0 L (3.4-4.8) gm/dL ABG Interpretation ABG results: 04/30/25 04/30/25 00:38 07:55 VBG pH 7.27 L 7.27 L VBG pCO2 38 29 L VBG pO2 31 102 H D VBG Base Excess -9 L -12 L Assessment and Plan Assessment and plan (1) Atrial fibrillation: Status: Acute (2) Sepsis: Status: Acute (3) Diabetes: Status: Acute (4) Lactic acidosis: Status: Acute (5) Diarrhea: Status: Acute (6) Metabolic acidosis: Status: Acute (7) UTI (urinary tract infection): Status: Acute Additional Assessment & Plan Additional Plan: pt developed afib rate controlled currently This is paroxysmal will start on amiodarone to maintain SR continue tele monitoring continue metoprolol if no contraindication consider anticoagulation echo pending troponin minimal elevation ; Type 2 UT
--- NOTE | 2025-05-02 17:33 | EVENTNT_ITS ---
<Statement entered by Natty Ken MD - 05/02/25 20:07> I have reviewed the note and agree with the resident's assessment & plan with exceptions as below. I have personally reviewed labs, imaging, home meds/prior records, examined the patient, formulated and discussed management plan with the IM team. Natty Ken, PGY-2 Internal Medicine Documentation for date of: 05/02/25 Event Note Event Note: Date: 05/02/2025 PU[employer]ING [employer] ENGINEER called at 11:20 for bed # 261 due to irregular EKG seen on tele. Patient seen and assessed in hospital bed, patient reported no chest pain or shortness of breath at that time. labs done: troponins drawn: 0.2. Chemistry panel done, K+ repletion already schedule. Treatment: Metoprolol succinate 50mg PO given. Cardiology consulted, Chest xray done, EKG ordered was similar to baseline but tachy. Decision: Keep patient on tele. Trend troponin
--- NOTE | 2025-05-02 17:52 | ESPR_ITS ---
<Statement entered by Natty Ken MD - 05/02/25 20:33> I have reviewed the note and agree with the resident's assessment & plan with exceptions as below. I have personally reviewed labs, imaging, home meds/prior records, examined the patient, formulated and discussed management plan with the IM team. Pt examined at bedside today. Pt found to have hypokalemia today, 2.8, nephrology on consult. PO and IV replenishment of K+, however, pt did have nausea after oral, will continue with IV. Rapid response earlier due to tachycardia, appears to be irregular. Will consult cardiology for evaluation of Afib/Flutter, continuing telemetry, electrolyte replenishment. Repeat hematology and chemistry in AM. Natty Ken, PGY-2 Internal Medicine Documentation for date of: 05/02/25 Subjective Subjective Interval history: Patient was interviewed with and [employer] UNDERWRITER in the room. Appears to be in good spirits. No BM today, states she only passes bowels every 3 days at home. and patient confirm that patient is back to baseline and no longer having loose stools at this time. She endorses nausea from potassium oral meds. Patient denies any chest pain, SOB, vomiting, fevers. Exam Vital Signs Temp Pulse Resp BP Pulse Ox O2 Del Method O2 Flow Rate 97.6 F 81 14 107/67 96 Nasal Cannula 1 05/02/25 15:45 05/02/25 15:45 05/02/25 15:45 05/02/25 15:45 05/02/25 15:45 05/02/25 15:45 05/02/25 15:45 Narrative Exam GEN: AOx3, able to speak full sentences HEENT: NC/AC, PERRLA, oral mucosa moist, neck supple CVS: RRR, S1-S2 present, no murmurs appreciated RESP: L lung base crackles. GI: soft,non distended, non tender, NBS MSK: Unable to move her lower extremities, no lower extremity edema SKIN: warm and dry. Left lateral ulcer on superior buttock, pink granulation tissue, weeping serous fluid, roughly the size of a quarter, clear wrappings covering wound. TRANSPORT MANAGER: CN II-XII and Sensation grossly intact. Objective Labs 05/03/25 05:34 05/03/25 16:02 Labs: Laboratory Results - last 24 hr 05/01/25 05/02/25 05/02/25 20:19 01:26 04:58 WBC 4.7 RBC 3.58 L Hgb 9.9 L Hct 30.5 L MCV 85 MCH 27.7 MCHC 32.5 RDW Std Deviation 43.9 Plt Count 188 Neut % (Auto) 68 Lymph % (Auto) 14 [place] % (Auto) 11 Eos % (Auto) 6 Baso % (Auto) 1 Neut # (Auto) 3.2 Lymph # (Auto) 0.7 L [place] # (Auto) 0.5 Eos # (Auto) 0.3 Baso # (Auto) 0.0 Immature Gran # (Auto) 0.03 H Absolute Nucleated RBC 0.00 Immature Gran % 1 H Nucleated RBC % 0 Sodium 138 Potassium 2.8 L D Chloride 98 Carbon Dioxide 28.5 Anion Gap 12 BUN 40 H Creatinine 3.0 H Estim Creat Clear Calc 13.2 L eGFR 15 L BUN/Creatinine Ratio 13 Glucose 132 H D Calculated Osmolality 287 Lactic Acid 4.4 H* 2.7 H Calcium 8.3 Corrected Calcium 9.1 Phosphorus 4.5 Magnesium 2.1 Total Bilirubin 0.2 L AST < 10 ALT 16 Alkaline Phosphatase 40 L Troponin I Total Protein 5.7 Albumin 3.0 L Globulin 2.7 Albumin/Globulin Ratio 1.1 L 05/02/25 05/02/25 07:55 12:06 WBC RBC Hgb Hct MCV MCH MCHC RDW Std Deviation Plt Count Neut % (Auto) Lymph % (Auto) [place] % (Auto) Eos % (Auto) Baso % (Auto) Neut # (Auto) Lymph # (Auto) [place] # (Auto) Eos # (Auto) Baso # (Auto) Immature Gran # (Auto) Absolute Nucleated RBC Immature Gran % Nucleated RBC % Sodium 137 Potassium 4.2 D Chloride 98 Carbon Dioxide 27.8 Anion Gap 11 BUN 33 H Creatinine 2.9 H Estim Creat Clear Calc 13.7 L eGFR 15 L BUN/Creatinine Ratio 11 L Glucose 229 H D Calculated Osmolality 288 Lactic Acid 1.7 Calcium 8.1 L Corrected Calcium Phosphorus Magnesium Total Bilirubin AST ALT Alkaline Phosphatase Troponin I 0.222 H* Total Protein Albumin Globulin Albumin/Globulin Ratio ABG Interpretation ABG results: 04/30/25 04/30/25 00:38 07:55 VBG pH 7.27 L 7.27 L VBG pCO2 38 29 L VBG pO2 31 102 H D VBG Base Excess -9 L -12 L Quality Measures Quality Measures VTE prophylaxis (Heparin subcu) Advance care planning discussed with:: patient Assessment & Plan Assessment Current Active Medications: Generic Name Dose Route Start Last Admin Trade Name Freq PRN Reason Stop Dose Admin Acetaminophen 650 mg 04/29/25 23:57 05/02/25 05:22 Acetaminophen 325 Mg Tablet PO 05/29/25 23:56 650 mg Q6H PRN Administration Fever >101.5 Hydrocodone Bitart/Acetaminophen 1 tab 04/30/25 20:46 05/02/25 16:09 Hydrocodone/Apap 5/325 Tablet PO 05/05/25 20:45 1 tab Q6HR PRN Administration PAIN SCALE 4-10(Mod-Sev Calcium Acetate 667 mg 05/01/25 17:30 05/02/25 17:08 Calcium Acetate 667 Mg Tablet PO 05/31/25 17:29 667 mg TIDWM TAWNY Administration Citric Acid/Sodium Citrate 30 ml 05/02/25 09:00 05/02/25 08:24 Citric Acid/Sodium Citr 15 Ml Udc (Bicitra) PO 06/01/25 08:59 30 ml DAILY TAWNY Administration Dextrose 25 ml 04/30/25 00:07 Dextrose 50%-Water Inj 50 Ml Syringe IV 05/30/25 00:06 Q15MIN PRN BG 50-70 responsive npo pt Dextrose 50 ml 04/30/25 00:07 Dextrose 50%-Water Inj 50 Ml Syringe IV 05/30/25 00:06 Q15MIN PRN BG <50 OR BG <70 & pt unresponsive Glucagon 1 mg 04/30/25 00:07 Glucagon Inj 1 Mg Vial IM Q15MIN PRN BG <70, and no IV access Heparin Sodium (Porcine) 5,000 unit 05/02/25 11:30 05/02/25 11:36 Heparin Sod Inj 5000 Unit/Ml Vial SC 05/16/25 11:29 5,000 unit Q12H TAWNY Administration Ceftriaxone Sodium/Dextrose 1 gm in 50 mls @ 100 mls/hr 04/30/25 14:15 05/02/25 08:23 Rocephin/D5w 1gm Iv Premix IV 05/07/25 14:14 100 mls/hr QDAY TAWNY Administration Levothyroxine Sodium 50 mcg 04/30/25 06:00 05/02/25 05:19 Levothyroxine Sodium 25 Mcg Tablet PO 05/30/25 05:59 50 mcg ACBR TAWNY Administration Metoprolol Succinate 50 mg 05/02/25 11:30 05/02/25 11:35 Metoprolol Succinate Xl 25 Mg Tabcr PO 06/01/25 11:29 50 mg QDAY TAWNY Administration Metronidazole 500 mg 04/30/25 22:00 05/02/25 13:58 Metronidazole 250 Mg Tablet PO 05/07/25 21:59 500 mg TID TAWNY Administration Pantoprazole Sodium 40 mg 05/02/25 09:00 05/02/25 08:24 Pantoprazole 40 Mg Tablet PO 06/01/25 08:59 40 mg QDAY TAWNY Administration Protocol Scopolamine 1 mg 05/02/25 10:15 05/02/25 11:47 Scopolamine 1 Mg Tdsy TOP 06/01/25 10:14 1 mg Q3D TAWNY Administration Sertraline HCl 25 mg 04/30/25 21:00 05/01/25 21:33 Sertraline Hcl 25 Mg Tablet PO 05/30/25 20:59 25 mg HS TAWNY Administration Plan Summary: a 89-year-old female patient with 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 Patient was admitted for treatment of multifactorial shock most likely secondary to sepsis and hypovolemia. 05/01 patient status has improved to near baseline. No evidence of loose stools on exam. Assessment and plan #Shock distributive versus hypovolemic (resolved) #KALLI #Lactic acidosis #High anion gap metabolic acidosis Lactic acid elevated 5.9, bicarb 17, anion gap 18. Most likely secondary to use of metformin in the setting of KALLI VBG pH 7.27, PCO2 38, pO2 31. No compensated respiratory alkalosis. Creatinine 3.0 on admission. No history of kidney disease. Likely prerenal as patient has not been eating or drinking for the past 2 days. Which converted to intrinsic renal injury/ ATN as noted by FeNA >10% and urine sodium >40mEq/L - Continue IV LR 50 mL/h ?Strict in and out -Sodium bicarb (Bicitra 30mL) p.o. twice daily -Avoid nephrotoxins -Monitor renal panel -Renally dosed medications -Hold any RICHARD/ARB/diuretics -Consult nephrology, appreciate recommendations -Change blanco to allyssawick #Rapid Response: a. fib -CXR: Atelectasis versus early pneumonia left base -Trend troponins:0.222 --> 0.435 -EKG: tachy but similar to baseline. #K+:2.8--> resolved -Continue repletion #Acute diarrhea: Resolved Patient presented with multiple episodes of diarrhea started 2 days before presentation. No blood, no mucus, no fever or chills. No history of antibiotic use. CT scan showed diffuse nonspecific colitis especially in the sigmoid colon differentials would be Crohn's, ulcerative colitis, and recommended laparoscopy. Also found to have cystitis pattern, hepatomegaly 22 cm, left renal calculi 12 mm nonobstructing. - Follow-up on the C. difficile results: Negative ? Discontinue contact precaution; D/C oral vancomycin (05/01) ? Continue ceftriaxone, Flagyl, empirically ? If diarrhea continue consider repleting fluid loss #lateral buttocks pressure ulcer Left lateral ulcer on superior buttock, pink granulation tissue, weeping serous fluid, roughly the size of a quarter. Plan: Wound care referral sent (05/01) #Hyperkalemia resolved #Asymptomatic pyuria #Concern for UTI UA on admission positive for leukocyte esterase, negative nitrate, RBC 498, WBC 1137, no bacteria however will treat empirically. Patient is asymptomatic. - Pending blood culture: No growth after 48 hours - Pending urine culture - IV ceftriaxone 1 g (04/30- #Hyperphosphatemia Likely secondary to KALLI. - Ordered Sevelamer - Continue to monitor #DM2, [id number] #Depression #Hypothyroidism Well-controlled last A1c is 5.8, patient on glimepiride and metformin at home. On presentation her bedside glucose was 28 from peripheral sample most likely secondary to her shock. When sample showed blood sugar was 82. Plan ?Bedside glucose check ACHS - Hold home glipizide and metformin - Will start SSI once stable #Peripheral neuropathy #Paralysis of lower extremities #Bedbound #Urinary incontinence Wears diaper. No home medications for neuropathy. #Pulmonary artery hypertension Noted on previous CTA in February 2022. Patient is not taking medications for PAH however is on chlorthalidone as needed for hypertension. -Hold diuresis at this time - Consider consulting cardiology Dr. Livingston: [facility] Health Maintenance Disposition: Telemetry DVT prophylaxis: Heparin GI prophylaxis: None Diet: Carb consistent diet with renal modification. CODE STATUS: DNR - Patient's plan and care discussed with my attending, Dr. Luu, and supervising resident Dr. Ken. Blaise Stewart MD Internal Medicine PGY-1 Attending Provider Attestation/Addendum I have discussed and was present for the essential components of the history, physical examination, diagnosis, and treatment plan with the resident. I agree with the patient's care as documented by the resident and amended herein by me. Palmer Luu DO. Although this document has been carefully reviewed, there may still be some phonetic and other typographical errors. These errors are purely grammatical due to imperfections in the software program and should not be construed in any way to compromise the substance of the patient's medical care during this visit.
[2025-05-02] MEDS: ASPIRIN EC 81 MG TABEC PO (18:16)
--- NOTE | 2025-05-02 19:16 | ESCONSULT_ITS ---
<Statement entered by Kartik Livingston MD - 05/04/25 18:20> The patient is very well-known to me longstanding history of hypertension severe back problems wheelchair-bound because severe neuropathy unable to ambulate came to the hospital with multiple problems also atrial fibrillation moderate rapid heart rate at the same time she had some chest discomfort only during the episode of A-fib troponin level went up slightly 0.22 delta troponin elevation not have any further chest pain shortness of breath. A-fib is back in sinus rhythm feeling much better does not complain headache or dizziness or shortness of breath. Treat conservatively for now patient also has acute renal failure hydration is being done patient did have elevated troponin levels but we will manage medically for now as possible type II myocardial infarction versus NSTEMI once renal function improves if she has episodes of chest pain may consider angiogram but for now no plans for her angiogram. A-fib appears to be one-time episode due to acute illness for now we will treat as such as she never had A-fib in the past but if she has recurrence of atrial fibrillation we will anticoagulate the patient as well aortic the patient with PGY 2 Dr. Eduard García agree with the treatment plan recommendation as documented HPI Data of Consult Requesting Physician: Daija Boyd MD Admitting Provider: Daija Boyd MD Attending Provider: Daija Boyd MD Primary Care Provider: Colt Tinoco MD Consult Narrative History of present illness: This is an 89-year-old female with a significant PMH, including paraplegia, breast CA (s/p right breast lumpectomy), hypothyroidism, PAH, T2DM, HTN, and depression, was admitted with N/V, dry heaves, diarrhea, and poor oral intake for 3 days. On admission, she was found to have recurrent hypoglycemia, hypotension (likely due to sepsis or dehydration), and KALLI, likely ATN from ongoing diarrhea and suspected UTI. She required ICU admission for hypotension, with a possible differential diagnosis of adrenal insufficiency or septic shock due to suspected UTI or community-acquired PNA. Diagnostics including CBC, CMP, and cultures were ordered to evaluate infection. The patient was initially started on vasopressors and fluid boluses. Given her history of PAH, a cardiology consult confirmed no immediate intervention for PAH was needed. After fluid resuscitation, the patient stabilized, with BP improving, and vasopressors and D10 were discontinued. The renal focus was on KALLI with signs of ATN, possibly exacerbated by metformin, dehydration, and a UTI. A renal ultrasound revealed 12mm renal calculi, which could be contributing to the UTI. Nephrology was consulted, and after 4L fluid resuscitation, discontinuation of nephrotoxic agents (metformin), and careful electrolyte management, renal function improved with urine output of 40-60 cc/hr. Lactic acidosis (from metformin and KALLI) trended down from 12 to 7.6. The patient was continued on LR for maintenance and downgraded to the floor for further management. The patient also had metabolic acidosis (AGMA), likely related to KALLI, dehydration, and possibly RTA, masked by lactic acid. Electrolyte imbalances (hyperkalemia, hyponatremia, hyperphosphatemia) were corrected with IV fluids, Kayexalate, and Sevelamer. Blood sugar remained erratic due to glipizide, which was contributing to hypoglycemia, but stabilized after D10 infusion and oral glucose management. This morning she she had a rapid response for irregular EKG seen on telemetry.. EKG showed A-fib with RVR which was also present on repeat, although nonspecific T wave abnormality were present. Labs were significant for new potassium of 2.8, likely precipitated A-fib with RVR. A-fib appears to have resolved after repletion of potassium with METOPROLOL, currently appears in sinus rhythm. She Denies fever, chills, headaches, active chest pain, sob, cough, GI or urinary symptoms. On evaluation, she describes incident of chest pain radiating to the left arm lasting about several minutes,, that occurred this morning and once prior to admission. Troponin checked this morning was elevated at 0.222. EKG findings as described above. Overall with symptoms concerning for ACS. We started ASPIRIN daily. Will follow- up with troponin, and consider starting HEPARIN drip if troponin is elevated or she remains symptomatic. Echo is ordered and pending reads. cc:: cc: Daija Boyd MD Review of Systems Review of Systems Systems Reviewed: All systems reviewed, normal except as documented Exam Vital Signs Temp Pulse Resp BP Pulse Ox O2 Del Method O2 Flow Rate 97.6 F 82 14 107/67 96 Nasal Cannula 1 05/02/25 15:45 05/02/25 16:00 05/02/25 15:45 05/02/25 15:45 05/02/25 15:45 05/02/25 15:45 05/02/25 15:45 Narrative Exam GENERAL * Normal appearing elderly man, on room air, no apparent distress. HEENT * NCAT.?TIANA. Oral mucosa is moist. Patent Nares NECK * Supple, nontender, no JVD. CHEST * RRR, no m/g/r * CTAB, no w/r/r, symmetrical expansion. ABDOMEN * Soft, flat, nontender. No guarding/rebound tenderness/masses. * Bowel sounds presents EXTREMITIES * No edema/cyanosis.? SKIN * Warm and dry, no jaundice/rashes. NEUROMUSCULAR * No focal neurologic deficits. PSYCHIATRY * Normal mood and affect, cooperative, no SI or HI or hallucinations. Results Labs 05/04/25 04:23 05/04/25 04:23 Labs: Short CBC 05/02/25 Range/Units 04:58 WBC 4.7 (3.6-11.0) Thou/mm3 Hgb 9.9 L (12.0-16.0) g/dL Hct 30.5 L (36.0-46.0) % Plt Count 188 (140-440) Thou/mm3 BMP 05/02/25 05/02/25 04:58 12:06 Sodium 138 137 Potassium 2.8 L D 4.2 D Chloride 98 98 Carbon Dioxide 28.5 27.8 BUN 40 H 33 H Creatinine 3.0 H 2.9 H Glucose 132 H D 229 H D Calcium 8.3 8.1 L Cardiac Enzymes 05/02/25 Range/Units 12:06 Troponin I 0.222 H* (0.0-0.045) ng/mL Liver Function 05/02/25 Range/Units 04:58 Total Bilirubin 0.2 L (0.3-1.2) mg/dL AST < 10 (0-34) U/L ALT 16 (10-49) U/L Alkaline Phosphatase 40 L (46-116) U/L Albumin 3.0 L (3.4-4.8) gm/dL ABG Interpretation ABG results: 04/30/25 04/30/25 00:38 07:55 VBG pH 7.27 L 7.27 L VBG pCO2 38 29 L VBG pO2 31 102 H D VBG Base Excess -9 L -12 L Quality Measures Quality Measures VTE prophylaxis (Heparin subcu) Advance care planning discussed with:: patient Medications Home Medications and Allergies Home Medications ?Medication ?Instructions ?Recorded ?Confirmed ?Type chlorthalidone 25 mg tablet 1 tab PO QAM 03/12/2211/23 History Held on 05/03/25. Instructions: Resume on 05/10/25. PCP to resume glipizide 5 mg tablet 1 tab PO BID 03/12/22 History Held on 05/03/25. Instructions: Resume on 05/10/25. to be resumed by PCP metoprolol succinate 50 mg 1 tab PO QDAY 03/12/2211/23 History tablet,extended release 24 hr pantoprazole 20 mg tablet,delayed 1 tab PO QDAY 04/30/25 History release potassium chloride 20 mEq 1 tab PO MWF 03/12/22 History tablet,extended release Held on 05/03/25. Instructions: Resume on 05/10/25. to be resumed by the hand turner with the diuretics pregabalin 75 mg capsule 1 cap PO QDAY 03/12/2204/30 History sertraline 25 mg tablet 1 tab PO QDAY 03/12/2204/30 History diphenoxylate-atropine 2.5 1 tab PO BID 04/30/2504/30 History mg-0.025 mg tablet levothyroxine 50 mcg tablet 50 mcg PO QAM 04/30/2511/23 History (Euthyrox) mupirocin 2 % topical ointment 1 applic topical PRN FL N Body sores 04/30/25 04/30/25 History torsemide 20 mg tablet 20 mg PO MWF 04/30/25 History Held on 05/03/25. Instructions: Resume on 05/10/25. to be resumed by the hand turner tramadol 50 mg tablet 50 mg PO QDAY PRN pain 04/3004/30/25 History Allergies Allergy/AdvReac Type Severity Reaction Status Date / Time NKA* Allergy Uncoded 05/20/19 09:14 Visit Medications Acetaminophen (Acetaminophen 325 Mg Tablet) 650 mg PO Q6H PRN PRN Reason: Fever >101.5 Stop: 05/29/25 23:56 Last Admin: 05/02/25 05:22 Dose: 650 mg Hydrocodone Bitart/Acetaminophen (Hydrocodone/Apap 5/325 Tablet) 1 tab PO Q6HR PRN PRN Reason: PAIN SCALE 4-10(Mod-Sev Stop: 05/05/25 20:45 Last Admin: 05/02/25 16:09 Dose: 1 tab Aspirin (Aspirin Ec 81 Mg Tabec) 81 mg PO QDAY [facility] Stop: 06/01/25 17:59 Calcium Acetate (Calcium Acetate 667 Mg Tablet) 667 mg PO TIDWM [facility] Stop: 05/31/25 17:29 Last Admin: 05/02/25 17:08 Dose: 667 mg Citric Acid/Sodium Citrate (Citric Acid/Sodium Citr 15 Ml Udc (Bicitra)) 30 ml PO DAILY [facility] Stop: 06/01/25 08:59 Last Admin: 05/02/25 08:24 Dose: 30 ml Dextrose (Dextrose 50%-Water Inj 50 Ml Syringe) 25 ml IV Q15MIN PRN PRN Reason: BG 50-70 responsive npo pt Stop: 05/30/25 00:06 Dextrose (Dextrose 50%-Water Inj 50 Ml Syringe) 50 ml IV Q15MIN PRN PRN Reason: BG <50 OR BG <70 & pt unresponsive Stop: 05/30/25 00:06 Glucagon (Glucagon Inj 1 Mg Vial) 1 mg IM Q15MIN PRN PRN Reason: BG <70, and no IV access Heparin Sodium (Porcine) (Heparin Sod Inj 5000 Unit/Ml Vial) 5,000 unit SC Q12H [facility] Stop: 05/16/25 11:29 Last Admin: 05/02/25 11:36 Dose: 5,000 unit Ceftriaxone Sodium/Dextrose (Rocephin/D5w 1gm Iv Premix) 1 gm in 50 mls @ 100 mls/hr IV QDAY [facility] Stop: 05/07/25 14:14 Last Admin: 05/02/25 08:23 Dose: 100 mls/hr Levothyroxine Sodium (Levothyroxine Sodium 25 Mcg Tablet) 50 mcg PO ACBR [facility] Stop: 05/30/25 05:59 Last Admin: 05/02/25 05:19 Dose: 50 mcg Metoprolol Succinate (Metoprolol Succinate Xl 25 Mg Tabcr) 50 mg PO QDAY [facility] Stop: 06/01/25 11:29 Last Admin: 05/02/25 11:35 Dose: 50 mg Metronidazole (Metronidazole 250 Mg Tablet) 500 mg PO TID [facility] Stop: 05/07/25 21:59 Last Admin: 05/02/25 13:58 Dose: 500 mg Pantoprazole Sodium (Pantoprazole 40 Mg Tablet) 40 mg PO QDAY [facility]; Protocol Stop: 06/01/25 08:59 Last Admin: 05/02/25 08:24 Dose: 40 mg Scopolamine (Scopolamine 1 Mg Tdsy) 1 mg TOP Q3D [facility] Stop: 06/01/25 10:14 Last Admin: 05/02/25 11:47 Dose: 1 mg Sertraline HCl (Sertraline Hcl 25 Mg Tablet) 25 mg PO HS [facility] Stop: 05/30/25 20:59 Last Admin: 05/01/25 21:33 Dose: 25 mg Discontinued Medications Albuterol (Albuterol Rt 2.5 Mg/3 Ml Nebu) 2.5 mg INH X1 ONE Stop: 04/30/25 00:46 Last Admin: 04/30/25 01:10 Dose: Not Given Albuterol (Albuterol Rt 2.5 Mg/3 Ml Nebu) 5 mg INH X1 ONE Stop: 04/30/25 00:46 Last Admin: 04/30/25 01:47 Dose: 5 mg Albuterol (Albuterol Rt 25 Mg/5 Ml Nebu) 5 mg INH X1 ONE Stop: 04/30/25 02:04 Last Admin: 04/30/25 04:13 Dose: Not Given Calcium Gluconate (Calcium Gluconate 10% Inj 1 Gm/10 Ml Vial) 1 gm IV X1 ONE Stop: 04/30/25 02:04 Last Admin: 04/30/25 03:16 Dose: 1 gm Citric Acid/Sodium Citrate (Citric Acid/Sodium Citr 15 Ml Udc (Bicitra)) 30 ml PO BID [facility] Stop: 05/30/25 08:59 Last Admin: 05/01/25 08:00 Dose: 30 ml Dextrose (Dextrose 50%-Water Inj 50 Ml Syringe) 50 ml IVP X1 ONE Stop: 04/29/25 20:16 Last Admin: 04/29/25 20:19 Dose: 50 ml Dextrose (Dextrose 50%-Water Inj 50 Ml Syringe) 50 ml IVP X1 ONE Stop: 04/30/25 00:51 Last Admin: 04/30/25 01:31 Dose: 50 ml Dextrose (Dextrose 50%-Water Inj 50 Ml Syringe) 50 ml IV Q15MIN PRN PRN Reason: BG <50 OR BG <70 & pt unresponsive Stop: 05/30/25 02:02 Glucagon (Glucagon Inj 1 Mg Vial) 1 mg IM Q15MIN PRN PRN Reason: BG <70, and no IV access Heparin Sodium (Porcine) (Heparin Sod Inj 5000 Unit/Ml Vial) 5,000 unit SC Q8HR [facility] Stop: 05/14/25 00:14 Last Admin: 05/02/25 05:17 Dose: Not Given Sodium Chloride (Ns) 1,000 mls @ 999 mls/hr IV .Q1H1M ONE Stop: 04/29/25 19:51 Last Infusion: 04/29/25 20:09 Dose: Infused Ceftriaxone Sodium/Dextrose (Rocephin/D5w 1gm Iv Premix) 1 gm in 50 mls @ 100 mls/hr IV X1 ONE Stop: 04/29/25 23:23 Last Infusion: 04/30/25 01:10 Dose: Infused Sodium Chloride (Ns) 1,000 mls @ 75 mls/hr IV .[id number] [facility] Stop: 05/29/25 23:44 Last Admin: 04/30/25 00:37 Dose: Not Given Dextrose (D5w) 1,000 mls @ 75 mls/hr IV .[id number] TAWNY Stop: 05/30/25 00:29 Last Admin: 04/30/25 00:37 Dose: Not Given Ceftriaxone Sodium/Dextrose (Rocephin/D5w 1gm Iv Premix) 1 gm in 50 mls @ 100 mls/hr IV QDAY [facility] Stop: 05/07/25 00:32 Last Admin: 04/30/25 00:44 Dose: Not Given Ceftriaxone Sodium/Dextrose (Rocephin/D5w 1gm Iv Premix) 1 gm in 50 mls @ 100 mls/hr IV QDAY [facility] Stop: 05/07/25 20:59 Dextrose (D10w) 500 mls @ 50 mls/hr IV .Q10H [facility] Stop: 05/30/25 00:34 Last Admin: 04/30/25 01:06 Dose: 50 mls/hr Lactated Ringer's (Lactated Ringers) 1,000 mls @ 999 mls/hr IV .Q1H1M ONE Stop: 04/30/25 01:54 Last Infusion: 04/30/25 08:19 Dose: Infused Dextrose (D10w 1000 Ml) 1,000 mls @ 100 mls/hr IV .Q10H [facility] Stop: 04/30/25 12:14 Last Infusion: 04/30/25 13:00 Dose: 0 mls/hr Magnesium Sulfate (Magnesium Sulfate Ivpb) 2 gm in 50 mls @ 25 mls/hr IV X1 ONE Stop: 04/30/25 04:06 Last Infusion: 04/30/25 07:00 Dose: Infused Piperacillin/Tazobactam/Dextrose (Zosyn) 50 mls @ 100 mls/hr IV Q12HR [facility] Stop: 05/07/25 03:39 Lactated Ringer's (Lactated Ringers) 1,000 mls @ 999 mls/hr IV .Q1H1M ONE Stop: 04/30/25 04:40 Last Infusion: 04/30/25 08:10 Dose: Infused Norepinephrine/Dextrose (Levophed In D5w 8mg/250ml) 8 mg in 250 mls @ 7.678 mls/hr IV .Q24H PRN; Protocol PRN Reason: PER PROTOCOL Stop: 05/30/25 03:39 Last Titration: 04/30/25 12:30 Dose: 0 mcg/kg/min, 0 mls/hr Piperacillin/Tazobactam/Dextrose (Zosyn) 2.25 gm in 50 mls @ 100 mls/hr IV Q8HR [facility] Stop: 05/07/25 05:59 Last Admin: 04/30/25 14:41 Dose: Not Given Lactated Ringer's (Lactated Ringers) 1,000 mls @ 999 mls/hr IV .Q1H1M ONE Stop: 04/30/25 06:56 Last Admin: 04/30/25 07:51 Dose: Not Given Doxycycline Hyclate 100 mg/ (Sodium Chloride) 100 mls @ 100 mls/hr IV BID [facility] Stop: 05/07/25 08:59 Last Infusion: 04/30/25 13:00 Dose: Infused Lactated Ringer's (Lactated Ringers) 500 mls @ 500 mls/hr IV .Q1H ONE Stop: 04/30/25 08:40 Last Admin: 04/30/25 07:51 Dose: Not Given Sodium Chloride (Ns) 1,000 mls @ 999 mls/hr IV .Q1H1M ONE Stop: 04/30/25 08:48 Last Infusion: 04/30/25 10:09 Dose: Infused Sodium Bicarbonate 88.23 meq/ (Dextrose) 588.23 mls @ 100 mls/hr IV .Q5H53M [facility] Stop: 05/30/25 12:35 Last Infusion: 04/30/25 17:30 Dose: 50 mls/hr Lactated Ringer's (Lactated Ringers) 1,000 mls @ 125 mls/hr IV .Q8H ONE Stop: 05/01/25 01:22 Last Infusion: 04/30/25 17:30 Dose: 0 mls/hr Lactated Ringer's (Lactated Ringers) 1,000 mls @ 50 mls/hr IV .Q20H ONE Stop: 05/01/25 13:22 Last Admin: 04/30/25 17:30 Dose: 50 mls/hr Sodium Bicarbonate 88.23 meq/ (Dextrose) 588.23 mls @ 50 mls/hr IV .[id number] [facility] Stop: 05/30/25 18:29 Last Admin: 05/01/25 07:56 Dose: 50 mls/hr Dextrose/Lactated Ringer's (D5-Lr) 1,000 mls @ 100 mls/hr IV .Q10H [facility] Stop: 05/01/25 20:44 Last Admin: 05/01/25 11:12 Dose: 100 mls/hr Potassium Chloride (Kcl Ivpb) 10 meq in 100 mls @ 100 mls/hr IV Q1H [facility] Stop: 05/02/25 11:44 Last Admin: 05/02/25 16:10 Dose: 50 mls/hr Insulin Human Lispro (Insulin Lispro (Admelog) 1 Unit/0.01 Ml Unit) 0 unit SC ACHS [facility]; Protocol Stop: 05/30/25 07:29 Insulin Human Regular (Insulin Hum Regular 1 Unit/0.01 Ml (Per Unit)) 5 unit SC X1 ONE Stop: 04/30/25 00:46 Last Admin: 04/30/25 01:04 Dose: Not Given Metronidazole (Metronidazole 250 Mg Tablet) 500 mg PO BID [facility] Stop: 05/07/25 13:29 Last Admin: 04/30/25 14:17 Dose: 500 mg Ondansetron HCl (Ondansetron Inj 2 Mg/Ml Inj 2 Ml) 4 mg IVP Q6H PRN; Protocol PRN Reason: NAUSEA OR VOMITING Stop: 05/29/25 23:56 Last Admin: 05/02/25 09:14 Dose: 4 mg Oxycodone/Acetaminophen (Oxycodone/Apap 5/325 Tablet) 1 tab PO X1 ONE Stop: 04/30/25 03:23 Last Admin: 04/30/25 03:42 Dose: 1 tab Pantoprazole Sodium (Pantoprazole Inj 40 Mg Vial) 40 mg IVP QDAY [facility] Stop: 05/30/25 02:09 Last Admin: 05/01/25 08:00 Dose: 40 mg Potassium Chloride (Potassium Chloride 10% 20 Meq/15 Ml Udc) 20 meq GT X1 ONE Stop: 05/02/25 07:45 Last Admin: 05/02/25 08:19 Dose: 20 meq Potassium Chloride (Potassium Chloride 10% 20 Meq/15 Ml Udc) 40 meq GT X1 ONE Stop: 05/02/25 07:51 Last Admin: 05/02/25 08:19 Dose: 40 meq Sevelamer Carbonate (Sevelamer Carbonate 800 Mg Tablet) 800 mg PO TIDWM [facility] Stop: 05/30/25 07:59 Last Admin: 05/01/25 11:12 Dose: 800 mg Sodium Bicarbonate (Sodium Bicarb Inj 8.4% 1 Meq/Ml 50 Ml Vial) 50 meq IV X1 ONE Stop: 04/30/25 02:00 Last Admin: 04/30/25 02:27 Dose: 50 meq Sodium Bicarbonate (Sodium Bicarb Inj 8.4% 1 Meq/Ml 50 Ml Vial) 50 meq IV X1 ONE Stop: 04/30/25 02:10 Last Admin: 04/30/25 03:08 Dose: 50 meq Sodium Bicarbonate (Sodium Bicarb Inj 8.4% Syr 50 Ml Syringe) 50 ml IV X1 ONE Stop: 04/30/25 07:40 Last Admin: 04/30/25 07:51 Dose: 50 ml Sodium Bicarbonate (Sodium Bicarb Inj 8.4% 1 Meq/Ml 50 Ml Vial) 50 meq IV X1 ONE Stop: 04/30/25 08:13 Last Admin: 04/30/25 08:32 Dose: Not Given Sodium Bicarbonate (Sodium Bicarbonate 650 Mg Tablet) 650 mg PO BID [facility] Stop: 05/30/25 20:59 Last Admin: 05/01/25 08:00 Dose: 650 mg Sodium Polystyrene Sulfonate (Sod Polystyrene Sulfon Susp 15 Gm/60 Ml Btl) 30 gm PO X1 ONE Stop: 04/30/25 00:46 Last Admin: 04/30/25 01:26 Dose: 30 gm Vancomycin HCl (Vancomycin 125 Mg Capsule) 125 mg PO QID [facility] Stop: 05/07/25 16:59 Last Admin: 05/01/25 11:12 Dose: 125 mg Assessment & Plan Plan This is an 89-year-old female with a significant PMH, including paraplegia, breast CA (s/p right breast lumpectomy), hypothyroidism, PAH, T2DM, HTN, and depression, was admitted with N/V, dry heaves, diarrhea, and poor oral intake for 3 days. On admission, she was found to have recurrent hypoglycemia, hypotension (likely due to sepsis or dehydration), and KALLI, likely ATN from ongoing diarrhea and suspected UTI. Cardiology was consulted for new onset A-fib with RVR. New onset A-fib with RVR NSTEMI type I versus type II Hypokalemia Likely combined hypovolemic and septic shock (resolved) Admitted for hypovolemic vs. septic shock with findings of acute renal failure (normal renal function), with elevated creatinine and BUN. Additionally, she had hyperkalemia was corrected, leading to hypokalemia, likely resulting in new A- fib with RVR seen on EKG. On evaluation, she reported chest pain into the left arm, and she had findings of that her troponin but no significant ST changes on EKG. Currently maintaining sinus rhythm after potassium repletion and with a dose of METOPROLOL. ? Recommended continue METOPROLOL, uptitrate as needed ? Trending troponin, consider starting HEPARIN drip if troponin elevated or symptomatic again. ? Maintain K > 4.0 and Mg > 2.0 ? Echocardiogram ordered to r/o structural causes and evaluate cardiac function. ? Continue ASPIRIN 81 mg daily Lactic acidosis NAGMA Acute renal failure Diarrhea Decubitus ulcer Asymptomatic pyuria Concern for UTI T2DM Depression Hypothyroidism Peripheral neuropathy Urinary incontinence Pulmonary hypertension ? Managed by primary team Case was discussed with attending physician, Dr. Livingston. Eduard García, DO PGY II This document was transcribed using voice recognition technology. Minor inaccuracies may be present.
[2025-05-02 19:25] LABS: Troponin I 0.435 ng/mL (0.0-0.045)
[2025-05-02] MEDS: SERTRALINE HCL 25 MG TABLET PO (21:38)
[2025-05-03] VITALS (10 sets, daily range): BP systolic 103–130; BP diastolic 50–83; PULSE 65–76; RESP 13–93; TEMP 35.9–36.3; O2SAT 91–94; BMI 32.1
[2025-05-03 00:53] LABS: Troponin I 0.394 ng/mL (0.0-0.045)
[2025-05-03] MEDS: LEVOTHYROXINE SODIUM 25 MCG TABLET 50 MCG PO (05:29)
[2025-05-03 06:04] LABS: Basophils # (Auto) 0.0 Thou/mm3 (0.0-0.2); Basophils % (Auto) 1 % (0-2.5); Eosinophils # (Auto) 0.4 Thou/mm3 (0.0-0.5); Eosinophils % (Auto) 7 % (0-10); Hematocrit 31.2 % (36.0-46.0); Hemoglobin 10.0 g/dL (12.0-16.0); Immature Granulocytes Auto 0.06 Thou/mm3 (0.00-0.00); Lymphocytes # (Auto) 0.8 Thou/mm3 (1.0-4.8); Lymphocytes % (Auto) 14 % (10-50); Mean Corpuscular HGB Conc 32.1 g/dl (31.0-37.0); Mean Corpuscular Hemoglobin 27.8 pg (25.0-35.0); Mean Corpuscular Volume 87 fL (80-100); Monocytes # (Auto) 0.6 Thou/mm3 (0.0-0.8); Monocytes % (Auto) 10 % (0-12); Neutrophils # (Auto) 4.0 Thou/mm3 (1.8-7.7); Neutrophils % (Auto) 67 % (37-80); Nucleated Red Blood Cell # 0.00 Thou/mm3 (0.00-0.00); Nucleated Red Blood Cell % 0 /100 WBC (0); Platelet Count 181 Thou/mm3 (140-440); RDW Standard Deviation 45.5 fL (36.4-46.3); Red Blood Count 3.60 Miln/mm3 (4.00-5.20); White Blood Count 6.0 Thou/mm3 (3.6-11.0)
[2025-05-03 06:41] LABS: Alanine Aminotransferase 15 U/L (10-49); Albumin, Serum 2.9 gm/dL (3.4-4.8); Albumin/Globulin Ratio 1.2 (1.2-2.2); Alkaline Phosphatase 41 U/L (46-116); Anion Gap 7 (7-16); Aspartate Amino Transferase 13 U/L (0-34); BUN/Creatinine Ratio 13 Ratio (12-20); Bilirubin,Total 0.2 mg/dL (0.3-1.2); Blood Urea Nitrogen 32 mg/dL (9-23); Calcium 8.0 mg/dL (8.3-10.6); Calcium (Corrected) 8.9 mg/dL (8.5-10.1); Carbon Dioxide 30.8 mMol/L (20.0-31.0); Chloride 100 mMol/L (98-107); Creatinine (Component) 2.4 mg/dL (0.6-1.3); Estimated Creatinine Clearance 16.5 mL/min (>60); Globulin 2.5 gm/dL (2.3-3.5); Glucose 165 mg/dL (74-106); Magnesium 1.4 mg/dL (1.6-2.6); Osmolality,Calculated 286 (275-295); Phosphorous 3.1 mg/dL (2.4-5.1); Potassium 4.0 mMol/L (3.4-5.1); Sodium 138 mMol/L (136-145); Total Protein 5.4 gm/dL (5.7-8.2); eGFR 19 See Note
[2025-05-03 06:44] LABS: Troponin I 0.313 ng/mL (0.0-0.045)
--- NOTE | 2025-05-03 07:05 | ESPR_ITS ---
Documentation for date of: 05/03/25 Subjective Subjective Interval history: Ms. 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 intake and diarrhea for the past 2 days. Also has not been able to eat and drink for the past 2 days. Denies dysuria, coughing, fever. No sick contacts. Patient denies history of cardiac or renal disease. Patient is bedbound with neurogenic bladder, wears diaper. Also has upper extremity weakness due to bilateral shoulder pain. ED Course-- Initial vitals were BP 99/51, HR 79, RR 16, temp 98.8 F, 93% on room air -Labs significant for WBC 12.3, hemoglobin 11.9, sodium 134, potassium 5.7, anion gap 18, glucose 28, BUN 59, creatinine 3.0 Imaging included CXR showed atelectasis versus mild pneumonia left base. -In the ED, patient was given NS 1 L IV x 1, dextrose 50 mL x 1, ceftriaxone 1 g x 1 -Patient was admitted for severe hypoglycemia with high anion metabolic acidosis. Due to hypotension patient was started on pressors and transferred to ICU. Patient currently seen in ICU. Renal consultation requested for KALLI and metabolic acidosis. Despite giving 2 L of fluids her urine output was very low. 04/30/2025WBC 9.4, hemoglobin 10.5, platelets 174, sodium 137, potassium 4.6, bicarbonate 14.6, BUN 50, creatinine 3.4, GFR 13, glucose 136, lactic acid significantly elevated at 12, calcium 9.2, phosphorus 8.2, LFTs normal, albumin 3.1, TSH 1.57 urinalysis shows pyuria urine anion gap positive ABG showing pH 7.27, pCO2 29, base excess -12, anion gap 23 05/01/2025 patient moved out of ICU. Still having loose stools. C. difficile came back negative. Urine potassium less than 10. Blood sugar 126. Blood pressure 134/59, heart rate 88. Off pressors. White count 5.1, hemoglobin 9.7, platelets 197. INR 1.0. Sodium 136, potassium 3.6, bicarbonate 23.7, BUN 46, creatinine 3.2, GFR 14, glucose 71, lactic acid 6.6, calcium 8.6, phosphorus 6, magnesium 2.1, LFTs normal, albumin 2.9 05/02/2025 patient seen and examined at bedside. Patient reports not having any more diarrhea. C. difficile results are negative. Potassium levels this morning are low at 2.8 given 40 p.o. X1 and IV repeat CMP at 1400 hrs. no HD today. UOP 3200. DC Chav[place]ria, placed PureWick. No HD today. 05/03/2025: Patient seen and examined at bedside. pt reports minimal appetite for breakfast. Ucx with mixed olga lidia, likely contaminant. Potassium levels ar wnl, 4.0. Bicarb 30, rec d/c bicitra, given BLE edema on exam, rec lasix 40 mg IVP 1x. no HD today. Exam Vital Signs Temp Pulse Resp BP Pulse Ox O2 Del Method O2 Flow Rate 96.7 F L 71 18 103/50 L 93 L Nasal Cannula 0.5 05/03/25 04:00 05/03/25 07:04 05/03/25 07:04 05/03/25 04:00 05/03/25 07:04 05/03/25 04:00 05/03/25 07:04 Narrative Exam GENERAL APPEARANCE: Patient seems to be comfortable, adequately hydrated and nourished. Obese lady seen at bedside. HEENT: EOMI, CARDIOVASCULAR: Heart regular, 2/6 murmurs LUNGS/CHEST: Chest clear to auscultation. No rales, rhonchi, wheezing ABDOMEN: Soft, nontender, nondistended. No masses. Normal bowel sounds. :purewick in place EXTREMITIES: BLE edema, clubbing or cyanosis. lipidemia + SKIN: small decub on the bottom MUSCULOSKELETAL: Unable to move her legs PSYCHIATRIC: Normal mood, affect LYMPHATICS: No lymphadenopathy noted NEUROLOGICAL : Alert and awake. Unable to move her lower extremities Objective Labs 05/03/25 05:34 05/03/25 05:34 Labs: Laboratory Results - last 24 hr 05/02/25 05/02/25 05/02/25 07:55 12:06 18:55 WBC RBC Hgb Hct MCV MCH MCHC RDW Std Deviation Plt Count Neut % (Auto) Lymph % (Auto) [place] % (Auto) Eos % (Auto) Baso % (Auto) Neut # (Auto) Lymph # (Auto) [place] # (Auto) Eos # (Auto) Baso # (Auto) Immature Gran # (Auto) Absolute Nucleated RBC Immature Gran % Nucleated RBC % Sodium 137 Potassium 4.2 D Chloride 98 Carbon Dioxide 27.8 Anion Gap 11 BUN 33 H Creatinine 2.9 H Estim Creat Clear Calc 13.7 L eGFR 15 L BUN/Creatinine Ratio 11 L Glucose 229 H D Calculated Osmolality 288 Lactic Acid 1.7 Calcium 8.1 L Corrected Calcium Phosphorus Magnesium Total Bilirubin AST ALT Alkaline Phosphatase Troponin I 0.222 H* 0.435 H* D Total Protein Albumin Globulin Albumin/Globulin Ratio 05/03/25 05/03/25 00:13 05:34 WBC 6.0 RBC 3.60 L Hgb 10.0 L Hct 31.2 L MCV 87 MCH 27.8 MCHC 32.1 RDW Std Deviation 45.5 Plt Count 181 Neut % (Auto) 67 Lymph % (Auto) 14 [place] % (Auto) 10 Eos % (Auto) 7 Baso % (Auto) 1 Neut # (Auto) 4.0 Lymph # (Auto) 0.8 L [place] # (Auto) 0.6 Eos # (Auto) 0.4 Baso # (Auto) 0.0 Immature Gran # (Auto) 0.06 H Absolute Nucleated RBC 0.00 Immature Gran % 1 H Nucleated RBC % 0 Sodium 138 Potassium 4.0 Chloride 100 Carbon Dioxide 30.8 Anion Gap 7 BUN 32 H Creatinine 2.4 H D Estim Creat Clear Calc 16.5 L eGFR 19 L BUN/Creatinine Ratio 13 Glucose 165 H D Calculated Osmolality 286 Lactic Acid Calcium 8.0 L Corrected Calcium 8.9 Phosphorus 3.1 Magnesium 1.4 L Total Bilirubin 0.2 L AST 13 ALT 15 Alkaline Phosphatase 41 L Troponin I 0.394 H* 0.313 H* Total Protein 5.4 L Albumin 2.9 L Globulin 2.5 Albumin/Globulin Ratio 1.2 ABG Interpretation ABG results: 04/30/25 04/30/25 00:38 07:55 VBG pH 7.27 L 7.27 L VBG pCO2 38 29 L VBG pO2 31 102 H D VBG Base Excess -9 L -12 L Quality Measures Quality Measures VTE prophylaxis (Heparin subcu) Advance care planning discussed with:: patient Assessment & Plan Assessment Current Active Medications: Generic Name Dose Route Start Last Admin Trade Name Corby PRN Reason Stop Dose Admin Acetaminophen 650 mg 04/29/25 23:57 05/02/25 05:22 Acetaminophen 325 Mg Tablet PO 05/29/25 23:56 650 mg Q6H PRN Administration Fever >101.5 Hydrocodone Bitart/Acetaminophen 1 tab 04/30/25 20:46 05/02/25 16:09 Hydrocodone/Apap 5/325 Tablet PO 05/05/25 20:45 1 tab Q6HR PRN Administration PAIN SCALE 4-10(Mod-Sev Aspirin 81 mg 05/02/25 18:00 05/02/25 18:16 Aspirin Ec 81 Mg Tabec PO 06/01/25 17:59 81 mg QDAY TAWNY Administration Calcium Acetate 667 mg 05/01/25 17:30 05/02/25 17:08 Calcium Acetate 667 Mg Tablet PO 05/31/25 17:29 667 mg TIDWM TAWNY Administration Citric Acid/Sodium Citrate 30 ml 05/02/25 09:00 05/02/25 08:24 Citric Acid/Sodium Citr 15 Ml Udc (Bicitra) PO 06/01/25 08:59 30 ml DAILY TAWNY Administration Dextrose 25 ml 04/30/25 00:07 Dextrose 50%-Water Inj 50 Ml Syringe IV 05/30/25 00:06 Q15MIN PRN BG 50-70 responsive npo pt Dextrose 50 ml 04/30/25 00:07 Dextrose 50%-Water Inj 50 Ml Syringe IV 05/30/25 00:06 Q15MIN PRN BG <50 OR BG <70 & pt unresponsive Glucagon 1 mg 04/30/25 00:07 Glucagon Inj 1 Mg Vial IM Q15MIN PRN BG <70, and no IV access Heparin Sodium (Porcine) 5,000 unit 05/02/25 11:30 05/02/25 23:40 Heparin Sod Inj 5000 Unit/Ml Vial SC 05/16/25 11:29 5,000 unit Q12H TAWNY Administration Ceftriaxone Sodium/Dextrose 1 gm in 50 mls @ 100 mls/hr 04/30/25 14:15 05/02/25 08:23 Rocephin/D5w 1gm Iv Premix IV 05/07/25 14:14 100 mls/hr QDAY TAWNY Administration Levothyroxine Sodium 50 mcg 04/30/25 06:00 05/03/25 05:29 Levothyroxine Sodium 25 Mcg Tablet PO 05/30/25 05:59 50 mcg ACBR TAWNY Administration Metoprolol Succinate 50 mg 05/02/25 11:30 05/02/25 11:35 Metoprolol Succinate Xl 25 Mg Tabcr PO 06/01/25 11:29 50 mg QDAY TAWNY Administration Metronidazole 500 mg 04/30/25 22:00 05/03/25 05:29 Metronidazole 250 Mg Tablet PO 05/07/25 21:59 500 mg TID TAWNY Administration Pantoprazole Sodium 40 mg 05/02/25 09:00 05/02/25 08:24 Pantoprazole 40 Mg Tablet PO 06/01/25 08:59 40 mg QDAY TAWNY Administration Protocol Scopolamine 1 mg 05/02/25 10:15 05/02/25 11:47 Scopolamine 1 Mg Tdsy TOP 06/01/25 10:14 1 mg Q3D TAWNY Administration Sertraline HCl 25 mg 04/30/25 21:00 05/02/25 21:38 Sertraline Hcl 25 Mg Tablet PO 05/30/25 20:59 25 mg HS TAWNY Administration Plan 89-year-old female patient with 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 Patient was admitted for treatment of multifactorial shock most likely secondary to sepsis and hypovolemia. C. difficile negative. Loose stools resolved. #Acute renal failure Creatinine 2.4 from 2.9, BUN 32 from 33 Acute renal failure secondary to prerenal azotemia. Patient with persistent hypotension and decreased urinary output now improved. Clinically looks slightly hypervolemic given BLE edema . CT scan showed large renal colliculi with no hydronephrosis. Renal ultrasound showed CKD changes. Plan: -No HD today -Avoid nephrotoxic drugs -Daily CMP -Lasix 1x 40 mg IVP #Metabolic acidosis-resolved #Lactic acidosis Lactic acid 1.7 Anion gap metabolic acidosis secondary to lactic acidosis and renal failure Query secondary to metformin. Bicarb 30.8 Plan: -d/c Bicitra -C. difficile negative #Hypokalemia- resolved K 4.0 today - replete as indicated. #Dehydration likely secondary to GI losses w/ diarrhea -Encourage p.o. intake #Pneumonia -Continue 1 g ceftriaxone #UTI r/o Urine culture mixed olga lidia, possible contamination -Continue 1 g ceftriaxone #Acute diarrhea- resolved #DM2, [id number] #Depression #Hypothyroidism #lateral buttocks pressure ulcer #Peripheral neuropathy #Paralysis of lower extremities #Bedbound #Urinary incontinence #Pulmonary artery hypertension Management as per primary team Plan discussed with nephrology attending Dr. Earnest Stewart MD Internal Medicine PGY-1 Attending Provider Attestation/Addendum Patient seen and examined with resident physician Dr. Stewart. Note reviewed, agree with findings and recommendations. Patient resting comfortably. Patient still having weakness in the lower extremities. Diarrhea better. C. difficile negative. Plan of care discussed with her . Creatinine improving. Bicarbonate better-DC Bicitra.
[2025-05-03] MEDS: Magnesium Sulfate 4 GM Ivpb 4 GM/50 ML BAG IV (08:25)
[2025-05-03] MEDS: METOPROLOL SUCCINATE XL 25 MG TABCR 50 MG PO (08:26)
[2025-05-03] MEDS: HYDROcodone/APAP 5/325 TABLET 1 TAB PO (08:26)
[2025-05-03] MEDS: CALCIUM ACETATE 667 MG TABLET PO ×3 (08:26→17:14)
[2025-05-03] MEDS: ASPIRIN EC 81 MG TABEC PO (08:27)
[2025-05-03] MEDS: cefTRIAXone/D5w 1gm IV premix 1 GM/50 ML BAG IV (08:27)
[2025-05-03] MEDS: PANTOPRAZOLE 40 MG TABLET PO (08:27)
--- NOTE | 2025-05-03 11:44 | ESPR_ITS ---
<Statement entered by Natty Ken MD - 05/04/25 15:49> I have reviewed the note and agree with the resident's assessment & plan with exceptions as below. I have personally reviewed labs, imaging, home meds/prior records, examined the patient, formulated and discussed management plan with the IM team. Bedside today. Patient continues to improve. Patient out of A-fib, currently in normal sinus rhythm. Pending cardiology recommendations, appreciate recommendations. Anticipate discharge in the next 24 to 48 hours. Repeat hematology and chemistry in a.m. Natty Ken, PGY-2 Internal Medicine Documentation for date of: 05/03/25 Subjective Subjective Interval history: Patient was interviewed with . Appears to be in good spirits. Small BM today, states she only passes bowels every 3 days at home. and patient confirm that patient is back to baseline and no longer having loose stools at this time. She is eating and no longer nauseas. Her lateral hip ulcer has clean dry bandages on it. Patient denies any chest pain, SOB, vomiting, fevers. Exam Vital Signs Temp Pulse Resp BP Pulse Ox O2 Del Method O2 Flow Rate 97.0 F 70 14 117/83 94 L Room Air 0.5 05/03/25 08:00 05/03/25 08:26 05/03/25 08:00 05/03/25 08:26 05/03/25 08:00 05/03/25 08:00 05/03/25 07:04 Narrative Exam GEN: AOx3, able to speak full sentences HEENT: NC/AC, PERRLA, oral mucosa moist, neck supple CVS: RRR, S1-S2 present, no murmurs appreciated RESP: Clear to auscultation, no rhonchi or rales heard. GI: soft,non distended, non tender, NBS MSK: Unable to move her lower extremities, +2 pitting edema bilateral legs. SKIN: warm and dry. Left lateral ulcer on superior buttock, pink granulation tissue, weeping serous fluid, roughly the size of a quarter, clear wrappings covering wound. 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 Objective Labs 05/04/25 04:23 05/04/25 04:23 Labs: Laboratory Results - last 24 hr 05/02/25 05/02/25 05/03/25 12:06 18:55 00:13 WBC RBC Hgb Hct MCV MCH MCHC RDW Std Deviation Plt Count Neut % (Auto) Lymph % (Auto) [place] % (Auto) Eos % (Auto) Baso % (Auto) Neut # (Auto) Lymph # (Auto) [place] # (Auto) Eos # (Auto) Baso # (Auto) Immature Gran # (Auto) Absolute Nucleated RBC Immature Gran % Nucleated RBC % Sodium 137 Potassium 4.2 D Chloride 98 Carbon Dioxide 27.8 Anion Gap 11 BUN 33 H Creatinine 2.9 H Estim Creat Clear Calc 13.7 L eGFR 15 L BUN/Creatinine Ratio 11 L Glucose 229 H D Calculated Osmolality 288 Calcium 8.1 L Corrected Calcium Phosphorus Magnesium Total Bilirubin AST ALT Alkaline Phosphatase Troponin I 0.222 H* 0.435 H* D 0.394 H* Total Protein Albumin Globulin Albumin/Globulin Ratio 05/03/25 05:34 WBC 6.0 RBC 3.60 L Hgb 10.0 L Hct 31.2 L MCV 87 MCH 27.8 MCHC 32.1 RDW Std Deviation 45.5 Plt Count 181 Neut % (Auto) 67 Lymph % (Auto) 14 [place] % (Auto) 10 Eos % (Auto) 7 Baso % (Auto) 1 Neut # (Auto) 4.0 Lymph # (Auto) 0.8 L [place] # (Auto) 0.6 Eos # (Auto) 0.4 Baso # (Auto) 0.0 Immature Gran # (Auto) 0.06 H Absolute Nucleated RBC 0.00 Immature Gran % 1 H Nucleated RBC % 0 Sodium 138 Potassium 4.0 Chloride 100 Carbon Dioxide 30.8 Anion Gap 7 BUN 32 H Creatinine 2.4 H D Estim Creat Clear Calc 16.5 L eGFR 19 L BUN/Creatinine Ratio 13 Glucose 165 H D Calculated Osmolality 286 Calcium 8.0 L Corrected Calcium 8.9 Phosphorus 3.1 Magnesium 1.4 L Total Bilirubin 0.2 L AST 13 ALT 15 Alkaline Phosphatase 41 L Troponin I 0.313 H* Total Protein 5.4 L Albumin 2.9 L Globulin 2.5 Albumin/Globulin Ratio 1.2 ABG Interpretation ABG results: 04/30/25 04/30/25 00:38 07:55 VBG pH 7.27 L 7.27 L VBG pCO2 38 29 L VBG pO2 31 102 H D VBG Base Excess -9 L -12 L Quality Measures Quality Measures VTE prophylaxis (Heparin subcu) Advance care planning discussed with:: patient Assessment & Plan Assessment Current Active Medications: Generic Name Dose Route Start Last Admin Trade Name Freq PRN Reason Stop Dose Admin Acetaminophen 650 mg 04/29/25 23:57 05/02/25 05:22 Acetaminophen 325 Mg Tablet PO 05/29/25 23:56 650 mg Q6H PRN Administration Fever >101.5 Hydrocodone Bitart/Acetaminophen 1 tab 04/30/25 20:46 05/03/25 08:26 Hydrocodone/Apap 5/325 Tablet PO 05/05/25 20:45 1 tab Q6HR PRN Administration PAIN SCALE 4-10(Mod-Sev Aspirin 81 mg 05/02/25 18:00 05/03/25 08:27 Aspirin Ec 81 Mg Tabec PO 06/01/25 17:59 81 mg QDAY TAWNY Administration Calcium Acetate 667 mg 05/01/25 17:30 05/03/25 08:26 Calcium Acetate 667 Mg Tablet PO 05/31/25 17:29 667 mg TIDWM TAWNY Administration Dextrose 25 ml 04/30/25 00:07 Dextrose 50%-Water Inj 50 Ml Syringe IV 05/30/25 00:06 Q15MIN PRN BG 50-70 responsive npo pt Dextrose 50 ml 04/30/25 00:07 Dextrose 50%-Water Inj 50 Ml Syringe IV 05/30/25 00:06 Q15MIN PRN BG <50 OR BG <70 & pt unresponsive Glucagon 1 mg 04/30/25 00:07 Glucagon Inj 1 Mg Vial IM Q15MIN PRN BG <70, and no IV access Heparin Sodium (Porcine) 5,000 unit 05/02/25 11:30 05/02/25 23:40 Heparin Sod Inj 5000 Unit/Ml Vial SC 05/16/25 11:29 5,000 unit Q12H TAWNY Administration Ceftriaxone Sodium/Dextrose 1 gm in 50 mls @ 100 mls/hr 04/30/25 14:15 05/03/25 08:27 Rocephin/D5w 1gm Iv Premix IV 05/07/25 14:14 100 mls/hr QDAY TAWNY Administration Magnesium Sulfate 4 gm in 50 mls @ 12.5 mls/hr 05/03/25 07:55 05/03/25 08:25 Magnesium Sulfate Ivpb IV 05/03/25 11:54 12.5 mls/hr X1 ONE Administration Levothyroxine Sodium 50 mcg 04/30/25 06:00 05/03/25 05:29 Levothyroxine Sodium 25 Mcg Tablet PO 05/30/25 05:59 50 mcg ACBR TAWNY Administration Metoprolol Succinate 50 mg 05/02/25 11:30 05/03/25 08:26 Metoprolol Succinate Xl 25 Mg Tabcr PO 06/01/25 11:29 50 mg QDAY TAWNY Administration Metronidazole 500 mg 04/30/25 22:00 05/03/25 05:29 Metronidazole 250 Mg Tablet PO 05/07/25 21:59 500 mg TID TAWNY Administration Pantoprazole Sodium 40 mg 05/02/25 09:00 05/03/25 08:27 Pantoprazole 40 Mg Tablet PO 06/01/25 08:59 40 mg QDAY TAWNY Administration Protocol Scopolamine 1 mg 05/02/25 10:15 05/02/25 11:47 Scopolamine 1 Mg Tdsy TOP 06/01/25 10:14 1 mg Q3D TAWNY Administration Sertraline HCl 25 mg 04/30/25 21:00 05/02/25 21:38 Sertraline Hcl 25 Mg Tablet PO 05/30/25 20:59 25 mg HS TAWNY Administration Simethicone 80 mg 05/03/25 10:43 Simethicone 80 Mg Chew PO 06/02/25 10:42 QID PRN GAS Plan Assessment 89-year-old female patient with 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 Patient was admitted for treatment of multifactorial shock most likely secondary to sepsis and hypovolemia. Patient status has improved to baseline. No evidence of loose stools on exam. Cardiology, Dr. Miki pacheco patient is ok to discharge before formal ECHO if her Creatinine stays below 2.0. #Shock distributive versus hypovolemic (resolved) #KALLI #Lactic acidosis #High anion gap metabolic acidosis Lactic acid elevated 5.9, bicarb 17, anion gap 18. Most likely secondary to use of metformin in the setting of KALLI VBG pH 7.27, PCO2 38, pO2 31. No compensated respiratory alkalosis. Creatinine 3.0 on admission. No history of kidney disease. Likely prerenal as patient has not been eating or drinking for the past 2 days. Which converted to intrinsic renal injury/ ATN as noted by FeNA >10% and urine sodium >40mEq/L - Continue IV LR 50 mL/h ?Strict in and out -Sodium bicarb (Bicitra 30mL) p.o. twice daily -Avoid nephrotoxins -Monitor renal panel -Renally dosed medications -Hold any RICHARD/ARB/diuretics -Consult nephrology, appreciate recommendations -Change blanco to purewick #Rapid Response: a. fib -CXR: Atelectasis versus early pneumonia left base -Trend troponins:0.222 --> 0.43--> 0.204 (resolved) -EKG: tachy but similar to baseline. #(05/03) new onset +2 pitting edema -1x IV lasix 40mg to diurese #K+:2.8--> resolved -Continue repletion #Acute diarrhea: Resolved Patient presented with multiple episodes of diarrhea started 2 days before presentation. No blood, no mucus, no fever or chills. No history of antibiotic use. CT scan showed diffuse nonspecific colitis especially in the sigmoid colon differentials would be Crohn's, ulcerative colitis, and recommended laparoscopy. Also found to have cystitis pattern, hepatomegaly 22 cm, left renal calculi 12 mm nonobstructing. - Follow-up on the C. difficile results: Negative ? Discontinue contact precaution; D/C oral vancomycin (05/01) ? Continue ceftriaxone, Flagyl, empirically ? If diarrhea continue consider repleting fluid loss #lateral buttocks pressure ulcer Left lateral ulcer on superior buttock, pink granulation tissue, weeping serous fluid, roughly the size of a quarter. Plan: Wound care referral sent (05/01) #Hyperkalemia resolved #Asymptomatic pyuria #Concern for UTI UA on admission positive for leukocyte esterase, negative nitrate, RBC 498, WBC 1137, no bacteria however will treat empirically. Patient is asymptomatic. - Pending blood culture: No growth after 48 hours - Pending urine culture - IV ceftriaxone 1 g (04/30- #Hyperphosphatemia Likely secondary to KALLI. - Ordered Sevelamer - Continue to monitor #DM2, [id number] #Depression #Hypothyroidism Well-controlled last A1c is 5.8, patient on glimepiride and metformin at home. On presentation her bedside glucose was 28 from peripheral sample most likely secondary to her shock. When sample showed blood sugar was 82. Plan ?Bedside glucose check ACHS - Hold home glipizide and metformin - Will start SSI once stable #Peripheral neuropathy #Paralysis of lower extremities #Bedbound #Urinary incontinence Wears diaper. No home medications for neuropathy. #Pulmonary artery hypertension Noted on previous CTA in February 2022. Patient is not taking medications for PAH however is on chlorthalidone as needed for hypertension. -Hold diuresis at this time - Consider consulting cardiology Dr. Livingston: [facility] [place] Health Maintenance Disposition: Telemetry DVT prophylaxis: Heparin GI prophylaxis: None Diet: Carb consistent diet with renal modification. CODE STATUS: DNR - Patient's plan and care discussed with my attending, Dr. Luu, and supervising resident Dr. Ken. Blaise Stewart MD Internal Medicine PGY-1 Attending Provider Attestation/Addendum I have discussed and was present for the essential components of the history, physical examination, diagnosis, and treatment plan with the resident. I agree with the patient's care as documented by the resident and amended herein by me. Palmer Luu, DO. Although this document has been carefully reviewed, there may still be some phonetic and other typographical errors. These errors are purely grammatical due to imperfections in the software program and should not be construed in any way to compromise the substance of the patient's medical care during this visit.
[2025-05-03] MEDS: HEPARIN SOD INJ 5000 UNIT/ML VIAL SC ×2 (11:57→23:28)
[2025-05-03] MEDS: FUROSEMIDE INJ 10 MG/ML 4ML VIAL 40 MG IVP (12:29)
[2025-05-03 12:53] LABS: Troponin I 0.204 ng/mL (0.0-0.045)
--- NOTE | 2025-05-03 14:41 | PC.SS ---
Rounding Note: Cardio recommendations are pending. Patient will require transportation upon discharge.
--- NOTE | 2025-05-03 16:47 | ESPR_ITS ---
<Statement entered by Kartik Livingston MD - 05/04/25 18:21> I personally examined the patient evaluate the patient today with resident physician agree with the treatment plan recommendation as documented by PGY 2 will continue to monitor the patient closely. Patient is clinically improving not have any further chest pain or shortness of breath as we are treating conservatively no plans for coronary angiogram. She is maintaining sinus rhythm since initial episode no further episodes. Documentation for date of: 05/03/25 Subjective Subjective Interval history: No acute overnight events. Patient doing fairly well today, denies chest pain or shortness of breath. The patient continues to feel little better does not complain of chest pain shortness of breath tolerating dialysis well. Exam Vital Signs Temp Pulse Resp BP Pulse Ox O2 Del Method O2 Flow Rate 96.7 F L 65 16 122/62 92 L Room Air 0.5 05/03/25 16:00 05/03/25 16:00 05/03/25 16:00 05/03/25 16:05/03/25 16:05/03/25 16:05/03/25 07:04 Narrative Exam GENERAL * Normal appearing elderly man, on room air, no apparent distress. HEENT * NCAT.?TIANA. Oral mucosa is moist. Patent Nares NECK * Supple, nontender, no JVD. CHEST * RRR, no m/g/r * CTAB, no w/r/r, symmetrical expansion. ABDOMEN * Soft, flat, nontender. No guarding/rebound tenderness/masses. * Bowel sounds presents EXTREMITIES * 1+ bilateral LE edema SKIN * Warm and dry, no jaundice/rashes. NEUROMUSCULAR * No focal neurologic deficits. PSYCHIATRY * Normal mood and affect, cooperative, no SI or HI or hallucinations. Objective Labs 05/04/25 04:23 05/04/25 04:23 Labs: Laboratory Results - last 24 hr 05/02/25 05/03/25 05/03/25 18:55 00:13 05:34 WBC 6.0 RBC 3.60 L Hgb 10.0 L Hct 31.2 L MCV 87 MCH 27.8 MCHC 32.1 RDW Std Deviation 45.5 Plt Count 181 Neut % (Auto) 67 Lymph % (Auto) 14 [place] % (Auto) 10 Eos % (Auto) 7 Baso % (Auto) 1 Neut # (Auto) 4.0 Lymph # (Auto) 0.8 L [place] # (Auto) 0.6 Eos # (Auto) 0.4 Baso # (Auto) 0.0 Immature Gran # (Auto) 0.06 H Absolute Nucleated RBC 0.00 Immature Gran % 1 H Nucleated RBC % 0 Sodium 138 Potassium 4.0 Chloride 100 Carbon Dioxide 30.8 Anion Gap 7 BUN 32 H Creatinine 2.4 H D Estim Creat Clear Calc 16.5 L eGFR 19 L BUN/Creatinine Ratio 13 Glucose 165 H D Calculated Osmolality 286 Calcium 8.0 L Corrected Calcium 8.9 Phosphorus 3.1 Magnesium 1.4 L Total Bilirubin 0.2 L AST 13 ALT 15 Alkaline Phosphatase 41 L Troponin I 0.435 H* D 0.394 H* 0.313 H* Total Protein 5.4 L Albumin 2.9 L Globulin 2.5 Albumin/Globulin Ratio 1.2 05/03/25 11:49 WBC RBC Hgb Hct MCV MCH MCHC RDW Std Deviation Plt Count Neut % (Auto) Lymph % (Auto) [place] % (Auto) Eos % (Auto) Baso % (Auto) Neut # (Auto) Lymph # (Auto) [place] # (Auto) Eos # (Auto) Baso # (Auto) Immature Gran # (Auto) Absolute Nucleated RBC Immature Gran % Nucleated RBC % Sodium Potassium Chloride Carbon Dioxide Anion Gap BUN Creatinine Estim Creat Clear Calc eGFR BUN/Creatinine Ratio Glucose Calculated Osmolality Calcium Corrected Calcium Phosphorus Magnesium Total Bilirubin AST ALT Alkaline Phosphatase Troponin I 0.204 H* Total Protein Albumin Globulin Albumin/Globulin Ratio ABG Interpretation ABG results: 04/30/25 04/30/25 00:38 07:55 VBG pH 7.27 L 7.27 L VBG pCO2 38 29 L VBG pO2 31 102 H D VBG Base Excess -9 L -12 L Quality Measures Quality Measures VTE prophylaxis (Heparin subcu) Advance care planning discussed with:: patient Assessment & Plan Assessment Current Active Medications: Generic Name Dose Route Start Last Admin Trade Name Freq PRN Reason Stop Dose Admin Acetaminophen 650 mg 04/29/25 23:57 05/02/25 05:22 Acetaminophen 325 Mg Tablet PO 05/29/25 23:56 650 mg Q6H PRN Administration Fever >101.5 Hydrocodone Bitart/Acetaminophen 1 tab 04/30/25 20:46 05/03/25 08:26 Hydrocodone/Apap 5/325 Tablet PO 05/05/25 20:45 1 tab Q6HR PRN Administration PAIN SCALE 4-10(Mod-Sev Aspirin 81 mg 05/02/25 18:00 05/03/25 08:27 Aspirin Ec 81 Mg Tabec PO 06/01/25 17:59 81 mg QDAY TAWNY Administration Calcium Acetate 667 mg 05/01/25 17:30 05/03/25 11:58 Calcium Acetate 667 Mg Tablet PO 05/31/25 17:29 667 mg TIDWM TAWNY Administration Dextrose 25 ml 04/30/25 00:07 Dextrose 50%-Water Inj 50 Ml Syringe IV 05/30/25 00:06 Q15MIN PRN BG 50-70 responsive npo pt Dextrose 50 ml 04/30/25 00:07 Dextrose 50%-Water Inj 50 Ml Syringe IV 05/30/25 00:06 Q15MIN PRN BG <50 OR BG <70 & pt unresponsive Glucagon 1 mg 04/30/25 00:07 Glucagon Inj 1 Mg Vial IM Q15MIN PRN BG <70, and no IV access Heparin Sodium (Porcine) 5,000 unit 05/02/25 11:30 05/03/25 11:57 Heparin Sod Inj 5000 Unit/Ml Vial SC 05/16/25 11:29 5,000 unit Q12H TAWNY Administration Ceftriaxone Sodium/Dextrose 1 gm in 50 mls @ 100 mls/hr 04/30/25 14:15 05/03/25 08:27 Rocephin/D5w 1gm Iv Premix IV 05/07/25 14:14 100 mls/hr QDAY TAWNY Administration Levothyroxine Sodium 50 mcg 04/30/25 06:00 05/03/25 05:29 Levothyroxine Sodium 25 Mcg Tablet PO 05/30/25 05:59 50 mcg ACBR TAWNY Administration Metoprolol Succinate 50 mg 05/02/25 11:30 05/03/25 08:26 Metoprolol Succinate Xl 25 Mg Tabcr PO 06/01/25 11:29 50 mg QDAY TAWNY Administration Metronidazole 500 mg 04/30/25 22:00 05/03/25 13:37 Metronidazole 250 Mg Tablet PO 05/07/25 21:59 500 mg TID TAWNY Administration Pantoprazole Sodium 40 mg 05/02/25 09:00 05/03/25 08:27 Pantoprazole 40 Mg Tablet PO 06/01/25 08:59 40 mg QDAY TAWNY Administration Protocol Scopolamine 1 mg 05/02/25 10:15 05/02/25 11:47 Scopolamine 1 Mg Tdsy TOP 06/01/25 10:14 1 mg Q3D TAWNY Administration Sertraline HCl 25 mg 04/30/25 21:00 05/02/25 21:38 Sertraline Hcl 25 Mg Tablet PO 05/30/25 20:59 25 mg HS TAWNY Administration Simethicone 80 mg 05/03/25 10:43 Simethicone 80 Mg Chew PO 06/02/25 10:42 QID PRN GAS Plan This is an 89-year-old female with a significant PMH, including paraplegia, breast CA (s/p right breast lumpectomy), hypothyroidism, PAH, T2DM, HTN, and depression, was admitted with N/V, dry heaves, diarrhea, and poor oral intake for 3 days. On admission, she was found to have recurrent hypoglycemia, hypotension (likely due to sepsis or dehydration), and KALLI, likely ATN from ongoing diarrhea and suspected UTI. Cardiology was consulted for new onset A-fib with RVR. New onset A-fib with RVR NSTEMI type I versus type II Hypokalemia Likely combined hypovolemic and septic shock (resolved) Admitted for hypovolemic vs. septic shock with findings of acute renal failure (normal renal function), with elevated creatinine and BUN. Additionally, she had hyperkalemia was corrected, leading to hypokalemia, likely resulting in new A- fib with RVR seen on EKG. On evaluation, she reported chest pain into the left arm, and she had findings of that her troponin but no significant ST changes on EKG. Currently maintaining sinus rhythm after potassium repletion and with a dose of METOPROLOL. 05/03/2025: Continued on METOPROLOL and ASPIRIN, remains asymptomatic, HR controlled, no evidence of arrhythmias on telemetry. No indication for anticoagulation at this time given that arrhythmia present less than 24 hours, and not sustaining. She will need outpatient cardiology workup including stress test and possible cath. Troponin peaked at 0.4, remains symptomatic without chest pain. Today, 1+ bilateral lower extremity edema noted on exam, no crackles or, on room air, no shortness of breath. Nephrology team on board, she is on LASIX intermittently, urine output adequate, renal function overall improving, creatinine 2.0 today. ? Recommended continue METOPROLOL, uptitrate as needed ? Recommended continue ASPIRIN 81 mg daily ? Recommended continue diuresis as renal function allows ? Recommended fluid and salt restrictions ? Maintain K > 4.0 and Mg > 2.0 ? Echocardiogram ordered to r/o structural causes and evaluate cardiac function. Lactic acidosis NAGMA Acute renal failure Diarrhea Decubitus ulcer Asymptomatic pyuria Concern for UTI T2DM Depression Hypothyroidism Peripheral neuropathy Urinary incontinence Pulmonary hypertension ? Managed by primary team Case was discussed with attending physician, Dr. Livingston. Eduard García, DO PGY II This document was transcribed using voice recognition technology. Minor inaccuracies may be present.
[2025-05-03 17:13] LABS: Potassium 4.0 mMol/L (3.4-5.1)
[2025-05-03] MEDS: SERTRALINE HCL 25 MG TABLET PO (21:55)
[2025-05-04] VITALS (9 sets, daily range): BP systolic 124–173; BP diastolic 49–90; PULSE 68–86; RESP 13–92; TEMP 35.9–36.4; O2SAT 90–94; BMI 31.8
[2025-05-04] MEDS: LEVOTHYROXINE SODIUM 25 MCG TABLET 50 MCG PO (05:32)
[2025-05-04 05:39] LABS: Basophils # (Auto) 0.1 Thou/mm3 (0.0-0.2); Basophils % (Auto) 1 % (0-2.5); Eosinophils # (Auto) 0.6 Thou/mm3 (0.0-0.5); Eosinophils % (Auto) 9 % (0-10); Hematocrit 33.1 % (36.0-46.0); Hemoglobin 10.6 g/dL (12.0-16.0); Immature Granulocytes Auto 0.04 Thou/mm3 (0.00-0.00); Lymphocytes # (Auto) 0.7 Thou/mm3 (1.0-4.8); Lymphocytes % (Auto) 10 % (10-50); Mean Corpuscular HGB Conc 32.0 g/dl (31.0-37.0); Mean Corpuscular Hemoglobin 27.6 pg (25.0-35.0); Mean Corpuscular Volume 86 fL (80-100); Monocytes # (Auto) 0.6 Thou/mm3 (0.0-0.8); Monocytes % (Auto) 8 % (0-12); Neutrophils # (Auto) 5.0 Thou/mm3 (1.8-7.7); Neutrophils % (Auto) 72 % (37-80); Nucleated Red Blood Cell # 0.00 Thou/mm3 (0.00-0.00); Nucleated Red Blood Cell % 0 /100 WBC (0); Platelet Count 214 Thou/mm3 (140-440); RDW Standard Deviation 44.1 fL (36.4-46.3); Red Blood Count 3.84 Miln/mm3 (4.00-5.20); White Blood Count 7.0 Thou/mm3 (3.6-11.0)
[2025-05-04 06:34] LABS: Alanine Aminotransferase 16 U/L (10-49); Albumin, Serum 3.1 gm/dL (3.4-4.8); Albumin/Globulin Ratio 1.1 (1.2-2.2); Alkaline Phosphatase 44 U/L (46-116); Anion Gap 10 (7-16); Aspartate Amino Transferase 17 U/L (0-34); BUN/Creatinine Ratio 14 Ratio (12-20); Bilirubin,Total 0.3 mg/dL (0.3-1.2); Blood Urea Nitrogen 26 mg/dL (9-23); Calcium 8.4 mg/dL (8.3-10.6); Calcium (Corrected) 9.1 mg/dL (8.5-10.1); Carbon Dioxide 29.7 mMol/L (20.0-31.0); Chloride 97 mMol/L (98-107); Creatinine (Component) 1.8 mg/dL (0.6-1.3); Estimated Creatinine Clearance 21.8 mL/min (>60); Globulin 2.8 gm/dL (2.3-3.5); Glucose 131 mg/dL (74-106); Magnesium 2.3 mg/dL (1.6-2.6); Osmolality,Calculated 280 (275-295); Phosphorous 2.9 mg/dL (2.4-5.1); Potassium 3.8 mMol/L (3.4-5.1); Sodium 137 mMol/L (136-145); Total Protein 5.9 gm/dL (5.7-8.2); eGFR 27 See Note
--- NOTE | 2025-05-04 07:10 | PD.RESPRO ---
Documentation for date of: 05/04/25 Subjective Subjective Interval history: Ms. May is a 89-year-old female with past medical history of peripheral neuropathy (paralyzed from the waist down, bedbound), neurogenic bladder with incontinence, breast cancer status post bilateral lumpectomy 25 years ago, endometriosis status post hysterectomy, hypothyroidism, hypertension, DM2 [id number], and obesity who presented to the ED on 04/29/2025 with chief complaint of nausea, vomiting, decreased p.o. intake and diarrhea for the past 2 days. Also has not been able to eat and drink for the past 2 days. Denies dysuria, coughing, fever. No sick contacts. Patient denies history of cardiac or renal disease. Patient is bedbound with neurogenic bladder, wears diaper. Also has upper extremity weakness due to bilateral shoulder pain. ED Course-- Initial vitals were BP 99/51, HR 79, RR 16, temp 98.8 F, 93% on room air -Labs significant for WBC 12.3, hemoglobin 11.9, sodium 134, potassium 5.7, anion gap 18, glucose 28, BUN 59, creatinine 3.0 Imaging included CXR showed atelectasis versus mild pneumonia left base. -In the ED, patient was given NS 1 L IV x 1, dextrose 50 mL x 1, ceftriaxone 1 g x 1 -Patient was admitted for severe hypoglycemia with high anion metabolic acidosis. Due to hypotension patient was started on pressors and transferred to ICU. Patient currently seen in ICU. Renal consultation requested for KALLI and metabolic acidosis. Despite giving 2 L of fluids her urine output was very low. 04/30/2025WBC 9.4, hemoglobin 10.5, platelets 174, sodium 137, potassium 4.6, bicarbonate 14.6, BUN 50, creatinine 3.4, GFR 13, glucose 136, lactic acid significantly elevated at 12, calcium 9.2, phosphorus 8.2, LFTs normal, albumin 3.1, TSH 1.57 urinalysis shows pyuria urine anion gap positive ABG showing pH 7.27, pCO2 29, base excess -12, anion gap 23 05/01/2025 patient moved out of ICU. Still having loose stools. C. difficile came back negative. Urine potassium less than 10. Blood sugar 126. Blood pressure 134/59, heart rate 88. Off pressors. White count 5.1, hemoglobin 9.7, platelets 197. INR 1.0. Sodium 136, potassium 3.6, bicarbonate 23.7, BUN 46, creatinine 3.2, GFR 14, glucose 71, lactic acid 6.6, calcium 8.6, phosphorus 6, magnesium 2.1, LFTs normal, albumin 2.9 05/02/2025 patient seen and examined at bedside. Patient reports not having any more diarrhea. C. difficile results are negative. Potassium levels this morning are low at 2.8 given 40 p.o. X1 and IV repeat CMP at 1400 hrs. no HD today. UOP 3200. DC [place], placed PureWick. No HD today. 05/03/2025: Patient seen and examined at bedside. pt reports minimal appetite for breakfast. Ucx with mixed olga lidia, likely contaminant. Potassium levels are wnl, 4.0. Bicarb 30, rec d/c bicitra, given BLE edema on exam, rec lasix 40 mg IVP 1x. no HD today. 05/04/2025: Patient seen and examined at bedside. pt continues to report minimal appetite for breakfast. Potassium 3.8, Bicarb 29.7, rec d/c calcium acetate, given 2+ BLE edema on exam, rec lasix 40 mg IVP x1. UOP 2900, no HD today Exam Vital Signs Temp Pulse Resp BP Pulse Ox O2 Del Method O2 Flow Rate 96.8 F 68 13 149/67 H 92 L Room Air 0.5 05/04/25 04:00 05/04/25 04:00 05/04/25 04:00 05/04/25 04:00 05/04/25 04:00 05/04/25 04:00 05/04/25 04:00 Narrative Exam GENERAL APPEARANCE: Patient seems to be comfortable, adequately hydrated and nourished. Obese lady seen at bedside. HEENT: EOMI, CARDIOVASCULAR: Heart regular, 2/6 murmurs LUNGS/CHEST: Chest clear to auscultation. No rales, rhonchi, wheezing ABDOMEN: Soft, nontender, nondistended. No masses. Normal bowel sounds. :purewick in place EXTREMITIES: BLE edema 2+, clubbing or cyanosis. lipidemia + SKIN: small decub on the bottom MUSCULOSKELETAL: Unable to move her legs PSYCHIATRIC: Normal mood, affect LYMPHATICS: No lymphadenopathy noted NEUROLOGICAL : Alert and awake. Unable to move her lower extremities Objective Labs 05/04/25 04:23 05/04/25 04:23 Labs: Laboratory Results - last 24 hr 05/03/25 05/03/25 05/04/25 11:49 16:02 04:23 WBC 7.0 RBC 3.84 L Hgb 10.6 L Hct 33.1 L MCV 86 MCH 27.6 MCHC 32.0 RDW Std Deviation 44.1 Plt Count 214 D Neut % (Auto) 72 Lymph % (Auto) 10 [place] % (Auto) 8 Eos % (Auto) 9 Baso % (Auto) 1 Neut # (Auto) 5.0 Lymph # (Auto) 0.7 L [place] # (Auto) 0.6 Eos # (Auto) 0.6 H Baso # (Auto) 0.1 Immature Gran # (Auto) 0.04 H Absolute Nucleated RBC 0.00 Immature Gran % 1 H Nucleated RBC % 0 Sodium 137 Potassium 4.0 3.8 Chloride 97 L Carbon Dioxide 29.7 Anion Gap 10 BUN 26 H Creatinine 1.8 H D Estim Creat Clear Calc 21.8 L eGFR 27 L BUN/Creatinine Ratio 14 Glucose 131 H Calculated Osmolality 280 Calcium 8.4 Corrected Calcium 9.1 Phosphorus 2.9 Magnesium 2.3 Total Bilirubin 0.3 AST 17 ALT 16 Alkaline Phosphatase 44 L Troponin I 0.204 H* Total Protein 5.9 Albumin 3.1 L Globulin 2.8 Albumin/Globulin Ratio 1.1 L ABG Interpretation ABG results: 04/30/25 04/30/25 00:38 07:55 VBG pH 7.27 L 7.27 L VBG pCO2 38 29 L VBG pO2 31 102 H D VBG Base Excess -9 L -12 L Quality Measures Quality Measures VTE prophylaxis (Heparin subcu) Advance care planning discussed with:: patient Assessment & Plan Assessment Current Active Medications: Generic Name Dose Route Start Last Admin Trade Name Freq PRN Reason Stop Dose Admin Acetaminophen 650 mg 04/29/25 23:57 05/02/25 05:22 Acetaminophen 325 Mg Tablet PO 05/29/25 23:56 650 mg Q6H PRN Administration Fever >101.5 Hydrocodone Bitart/Acetaminophen 1 tab 04/30/25 20:46 05/03/25 08:26 Hydrocodone/Apap 5/325 Tablet PO 05/05/25 20:45 1 tab Q6HR PRN Administration PAIN SCALE 4-10(Mod-Sev Aspirin 81 mg 05/02/25 18:00 05/03/25 08:27 Aspirin Ec 81 Mg Tabec PO 06/01/25 17:59 81 mg QDAY TAWNY Administration Calcium Acetate 667 mg 05/01/25 17:30 05/03/25 17:14 Calcium Acetate 667 Mg Tablet PO 05/31/25 17:29 667 mg TIDWM TAWNY Administration Dextrose 25 ml 04/30/25 00:07 Dextrose 50%-Water Inj 50 Ml Syringe IV 05/30/25 00:06 Q15MIN PRN BG 50-70 responsive npo pt Dextrose 50 ml 04/30/25 00:07 Dextrose 50%-Water Inj 50 Ml Syringe IV 05/30/25 00:06 Q15MIN PRN BG <50 OR BG <70 & pt unresponsive Glucagon 1 mg 04/30/25 00:07 Glucagon Inj 1 Mg Vial IM Q15MIN PRN BG <70, and no IV access Heparin Sodium (Porcine) 5,000 unit 05/02/25 11:30 05/03/25 23:28 Heparin Sod Inj 5000 Unit/Ml Vial SC 05/16/25 11:29 5,000 unit Q12H TAWNY Administration Ceftriaxone Sodium/Dextrose 1 gm in 50 mls @ 100 mls/hr 04/30/25 14:15 05/03/25 08:27 Rocephin/D5w 1gm Iv Premix IV 05/07/25 14:14 100 mls/hr QDAY TAWNY Administration Levothyroxine Sodium 50 mcg 04/30/25 06:00 05/04/25 05:32 Levothyroxine Sodium 25 Mcg Tablet PO 05/30/25 05:59 50 mcg ACBR TAWNY Administration Metoprolol Succinate 50 mg 05/02/25 11:30 05/03/25 08:26 Metoprolol Succinate Xl 25 Mg Tabcr PO 06/01/25 11:29 50 mg QDAY TAWNY Administration Metronidazole 500 mg 04/30/25 22:00 05/04/25 05:32 Metronidazole 250 Mg Tablet PO 05/07/25 21:59 500 mg TID TAWNY Administration Pantoprazole Sodium 40 mg 05/02/25 09:00 05/03/25 08:27 Pantoprazole 40 Mg Tablet PO 06/01/25 08:59 40 mg QDAY TAWNY Administration Protocol Scopolamine 1 mg 05/02/25 10:15 05/02/25 11:47 Scopolamine 1 Mg Tdsy TOP 06/01/25 10:14 1 mg Q3D TAWNY Administration Sertraline HCl 25 mg 04/30/25 21:00 05/03/25 21:55 Sertraline Hcl 25 Mg Tablet PO 05/30/25 20:59 25 mg HS TAWNY Administration Simethicone 80 mg 05/03/25 10:43 Simethicone 80 Mg Chew PO 06/02/25 10:42 QID PRN GAS Plan 89-year-old female patient with 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 Patient was admitted for treatment of multifactorial shock most likely secondary to sepsis and hypovolemia. C. difficile negative. Loose stools resolved. pending echo to r/o structural causes and evaluate cardiac function. #Acute renal failure Creatinine 2.4 from 2.9, BUN 32 from 33 Acute renal failure secondary to prerenal azotemia. Patient with persistent hypotension and decreased urinary output now improved. Clinically looks slightly hypervolemic given BLE edema . CT scan showed large renal colliculi with no hydronephrosis. Renal ultrasound showed CKD changes. Plan: -No HD today -Avoid nephrotoxic drugs -Daily CMP -Lasix 1x 40 mg IVP -d/c Calcium acetate -replete K with 40 KCL #Metabolic acidosis-resolved #Lactic acidosis Lactic acid 1.7 Anion gap metabolic acidosis secondary to lactic acidosis and renal failure Query secondary to metformin. Bicarb 30.8 Plan: -d/c Bicitra -C. difficile negative #Hypokalemia- resolved K 3.8 today - replete as indicated. #Dehydration likely secondary to GI losses w/ diarrhea -Encourage p.o. intake #Pneumonia -Continue 1 g ceftriaxone #UTI r/o Urine culture mixed olga lidia, possible contamination #Acute diarrhea- resolved #DM2, [id number] #Depression #Hypothyroidism #lateral buttocks pressure ulcer #Peripheral neuropathy #Paralysis of lower extremities #Bedbound #Urinary incontinence #Pulmonary artery hypertension Management as per primary team Plan discussed with nephrology attending Dr. Earnest Stewart MD Internal Medicine PGY-1 Attending Provider Attestation/Addendum Patient seen and examined with resident physician Dr. Stewart. Note reviewed, agree with findings and recommendations. Patient resting comfortably. Patient still having weakness in the lower extremities. Diarrhea better. C. difficile negative. Plan of care discussed with her . Creatinine improving. Bicarbonate better-DC Bicitra.
[2025-05-04] MEDS: CALCIUM ACETATE 667 MG TABLET PO (07:33)
[2025-05-04] MEDS: METOPROLOL SUCCINATE XL 25 MG TABCR 50 MG PO (08:26)
[2025-05-04] MEDS: ASPIRIN EC 81 MG TABEC PO (08:26)
[2025-05-04] MEDS: cefTRIAXone/D5w 1gm IV premix 1 GM/50 ML BAG IV (08:26)
[2025-05-04] MEDS: PANTOPRAZOLE 40 MG TABLET PO (08:26)
[2025-05-04] MEDS: POTASSIUM CHL 10 mEq IVPB 10 MEQ/100 ML BAG 70 MEQ IV ×2 (11:09→12:12)
[2025-05-04] MEDS: HEPARIN SOD INJ 5000 UNIT/ML VIAL SC (11:13)
--- NOTE | 2025-05-04 12:02 | ESDS_ITS ---
Planned Discharge Date 05/04/25 DS: Providers Provider Date of admission: 04/29/25 23:57 Primary care physician: Colt Tinoco MD Admitting Provider: Daija Boyd MD Attending Provider on Admission: Los Luu DO Consults: 04/30/25 02:01 Consult to Nephrology Routine Comment: Consulting Provider: Colt Tinoco 04/30/25 03:57 Referral Registered Dietitian Routine Comment: 05/01/25 14:39 Referral Wound Care Stat Comment: 05/02/25 15:07 Consult to Cardiology Urgent Comment: Irregular EKG durng rapid Consulting Provider: Kartik Livingston Attending Provider on DC: RESIDENT Darius Discharging Provider: RESIDENT Darius DS: Diagnosis Problem List Completed Was Problem List Reviewed/Reconciled?: Yes Hospital Course Hospital Course Hospital course: Ms. May is a 89-year-old female with past medical history of peripheral neuropathy (paralyzed from the waist down, bedbound), neurogenic bladder with incontinence, breast cancer status post bilateral lumpectomy 25 years ago, endometriosis status post hysterectomy, hypothyroidism, hypertension, DM2 [id number], and obesity who presented to the ED with chief complaint of decreased p.o. intake and diarrhea for the past 2 days. Admitted for hypoglycemia, lactic acidosis with high anion gap metabolic acidosis with KALLI. Patient was hypotensive, with severe lactic acidosis requiring admission to the ICU and started on IVF and levophed. Patient was also notice to be in KALLI FeNa was 10% indicate renal cause most likely 2/2 ATN from prolonged hypotension. She required one session of CRRT and bacitra due to her severe acidosis. And was started on Rocefin and flagyl for her G.E Moreover she was noticed to be hypoglycemic and was give D10%. On the 30 of April patient condition improved and downgraded to telemetry. Her diarrhea stopped so her abx stopped, her S.Cr continue to downtrend to 1.8 form 3.4, her bicarb normalized. On the of this months she developed an episode of A.Fib-RVR was resolved spontaneously patient to follow with her service desk technician. We belive that her severe lactic acidosis related to the KALLI while she was on metformin. At this time, patient deemed to be clinically stable for DC and was given the following instructions Follow-up with your primary care physician within 1 week from discharge Follow-up with your service desk technician Dr. Livingston within 1 week from discharge We held your water pills due to kidney injury, will be resumed by your service desk technician Dr. Livingston at the next visit We added for your antibiotic Augmentin 1 g twice a day for 2 more days Follow-up with the stain remover Dr. Tinoco within 1 week from discharge. We stopped your medication metformin and glipizide for diabetes and we started you on Januvia 25 mg p.o. daily until kidney fully recover, discussed with your PCP other options. In case of worsening of your symptoms please return to the ED as soon as possible #Shock distributive versus hypovolemic (resolved) #KALLI #Lactic acidosis #High anion gap metabolic acidosis #Rapid Response: a. fib #New onset +2 pitting edema #K+:2.8 #Acute diarrhea #lateral buttocks pressure ulcer #Hyperkalemia #Asymptomatic pyuria #Concern for UTI #Hyperphosphatemia #DM2, [id number] #Depression #Hypothyroidism #Peripheral neuropathy #Paralysis of lower extremities #Bedbound #Urinary incontinence #Pulmonary artery hypertension Patient's plan and care discussed with my attending, Dr. Luu, and supervising residents Kalli Medley MD, and MD Blaise Hudson MD Internal Medicine PGY-1 Time Spent with Patient Time attestation: Total time spent providing and/or coordinating discharge services: Time spent: Less than 30 minutes Exam Vital Signs Temp Pulse Resp BP Pulse Ox O2 Del Method O2 Flow Rate 96.9 F 68 14 124/57 L 91 L Room Air 0.5 05/04/25 08:00 05/04/25 08:26 05/04/25 08:00 05/04/25 08:26 05/04/25 08:00 05/04/25 08:00 05/04/25 08:00 Narrative Exam GEN: AOx3, able to speak full sentences HEENT: NC/AC, PERRLA, oral mucosa moist, neck supple CVS: RRR, S1-S2 present, no murmurs appreciated RESP: Clear to auscultation, no rhonchi or rales heard. GI: soft,non distended, non tender, NBS MSK: Unable to move her lower extremities, +1 pitting edema bilateral legs. SKIN: warm and dry. Left lateral ulcer on superior buttock, pink granulation tissue, weeping serous fluid, roughly the size of a quarter, clear wrappings covering wound. FREELANCE INTERPRETER/TRANSLATOR: CN II-XII and Sensation grossly intact. Discharge Plan Plan Patient Disposition: Home w/HOME HEALTH Patient condition on transfer: Stable Care Plan Goals: Discharge instruction: Follow-up with your primary care physician within 1 week from discharge Follow-up with your service desk technician Dr. Livingston within 1 week from discharge We held your water pills due to kidney injury, will be resumed by your service desk technician Dr. Livingston at the next visit We added for your antibiotic Augmentin 1 g twice a day for 2 more days Follow-up with the stain remover Dr. Tinoco within 1 week from discharge. We stopped your medication metformin and glipizide for diabetes and we started you on Januvia 25 mg p.o. daily until kidney fully recover, discussed with your PCP other options. In case of worsening of your symptoms please return to the ED as soon as possible Prescriptions/Referrals Prescriptions/Med Rec: New aspirin 81 mg Tablet,Delayed Release (Dr/Ec) 81 mg PO QDAY 7 Days Qty: 7 0RF calcium acetate(phosphat bind) 667 mg Capsule 667 mg PO TIDWM 7 Days Qty: 21 0RF amoxicillin-pot clavulanate 875-125 mg tablet 1 tab PO BID 2 Days Qty: 4 0RF Januvia 25 mg tablet 25 mg PO QDAY 7 Days Qty: 7 0RF Continued pantoprazole 20 mg tablet,delayed release (DR/EC) 1 tab PO QDAY Patient Comments: TAKE 1 TABLET BY MOUTH EVERY DAY metoprolol succinate 50 mg tablet extended release 24 hr 1 tab PO QDAY Patient Comments: TAKE 1 TABLET BY MOUTH EVERY DAY pregabalin 75 mg capsule 1 cap PO QDAY Patient Comments: TAKE 1 CAPSULE BY MOUTH EVERY DAY sertraline 25 mg tablet 1 tab PO QDAY Patient Comments: TAKE 1 TABLET BY MOUTH EVERY DAY mupirocin 2 % ointment 1 applic TOPICAL PRN PRN (Reason: Body sores) Patient Comments: APPLY TO AFFECTED AREA TWICE A DAY ON NOSE diphenoxylate-atropine 2.5-0.025 mg tablet 1 tab PO BID levothyroxine [Euthyrox] 50 mcg tablet 50 mcg PO QAM tramadol 50 mg tablet 50 mg PO QDAY PRN (Reason: pain) Held chlorthalidone 25 mg tablet 1 tab PO QAM Hold Instructions: Resume on 05/10/25. PCP to resume Patient Comments: TAKE 1 TABLET BY MOUTH EVERY DAY IN THE MORNING WITH FOOD potassium chloride 20 mEq tablet extended release 1 tab PO MWF Hold Instructions: Resume on 05/10/25. to be resumed by the service desk technician with the diuretics Patient Comments: TAKE 1 TABLET BY MOUTH EVERY DAY WITH FOOD FOR 90 DAYS glipizide 5 mg tablet 1 tab PO BID Hold Instructions: Resume on 05/10/25. to be resumed by PCP Patient Comments: TAKE 1 TABLET BY MOUTH TWICE A DAY torsemide 20 mg tablet 20 mg PO MWF Hold Instructions: Resume on 05/10/25. to be resumed by the service desk technician Patient Comments: TAKE 1 TABLET BY MOUTH EVERY DAY Discontinued solifenacin [Vesicare] 10 mg tablet 10 mg PO QDAY levothyroxine 75 mcg tablet 1 tab PO QDAY Patient Comments: TAKE 1 TABLET BY MOUTH EVERY DAY metformin 500 mg tablet 500 mg PO BID Patient Comments: TAKE 1 TABLET BY MOUTH TWICE A DAY Referrals: Colt Tinoco MD [Primary Care Provider] - Patient/Caregiver Discharge Instructions Discharge Activity: activity as tolerated Education Materials: AFL/Afib, Diabetes and Kidney Disease, Acute Kidney Failure Dc Print Language: Danish Stand Alone Forms: Vanessa Award Info., Patient Portal Info Letter Discharge Order Discharge Orders: Discharge (Routine); Ordered 05/04/25 Ordered By: Natty eKn Quality Discharge Quality Measures VTE prophylaxis Attestestation MD Attestation I have discussed and was present for the essential components of the discharge history, physical examination, diagnosis, and discharge treatment plan with the resident. I agree with the patient's discharge care as documented by the resident and amended herein by me. Palmer Luu DO. The patient understood all discharge instructions, all questions were answered satisfactorily. The patient was instructed to return to the Emergency Department is symptoms worsened or persisted. Patient back to her baseline mentally renal function significantly improved from admission, diarrhea has resolved, will follow-up with cardiology, Dr. Livingston in 1 week following discharge. The patient was stable, afebrile and tolerating p.o. intake at time of discharge home. was at bedside, all questions answered satisfactorily. Although this document has been carefully reviewed, there may still be some phonetic and other typographical errors. These errors are purely grammatical due to imperfections in the software program and should not be construed in any way to compromise the substance of the patient's medical care during this visit.
[2025-05-04] MEDS: POTASSIUM CHL 10 mEq IVPB 10 MEQ/100 ML BAG 75 MEQ IV ×2 (13:38→15:05)
--- NOTE | 2025-05-04 15:03 | PC.SS ---
Transport scheduled with [facility] for 06:30 pm today. [facility] [employer] notified bedside nurse and patient's family.
--- NOTE | 2025-05-05 16:24 | PC.CM ---
Patient was opened to [facility]. I faxed over information and I spoke to Maryann who states patient will be seen on 05/07.
== END 2025-05-04 19:00 | disposition home health service (06) | DRG 871 ==
LOC: SERX 22:50 → SERHOLD 04-30 00:42 → S2SX 04-30 02:39 → S2NX 04-30 20:10
PROVIDERS: Student in an Organized Health Care Education/Training Program; Admitting Provider Student in an Organized Health Care Education/Training Program; Emergency Provider Emergency Medicine; PCP Internal Medicine; Visit Provider Student in an Organized Health Care Education/Training Program
DX: A41.9 Sepsis, unspecified organism (principal); J18.9 Pneumonia, unspecified organism; R65.21 Severe sepsis with septic shock; N17.0 Acute kidney failure with tubular necrosis; R57.1 Hypovolemic shock; E87.1 Hypo-osmolality and hyponatremia; G82.20 Paraplegia, unspecified; E87.20 Acidosis, unspecified; I48.92 Unspecified atrial flutter; E11.649 Type 2 diabetes mellitus with hypoglycemia without coma; E03.9 Hypothyroidism, unspecified; K21.9 Gastro-esophageal reflux disease without esophagitis; E87.5 Hyperkalemia; Z74.01 Bed confinement status; E11.42 Type 2 diabetes mellitus with diabetic polyneuropathy; Z85.3 Personal history of malignant neoplasm of breast; E83.39 Other disorders of phosphorus metabolism; F32.A Depression, unspecified; I27.21 Secondary pulmonary arterial hypertension; Z66 Do not resuscitate; E86.0 Dehydration; N30.90 Cystitis, unspecified without hematuria; N20.0 Calculus of kidney; L89.309 Pressure ulcer of unspecified buttock, unspecified stage; E87.6 Hypokalemia; E11.65 Type 2 diabetes mellitus with hyperglycemia; E11.22 Type 2 diabetes mellitus with diabetic chronic kidney disease; E86.1 Hypovolemia; D63.1 Anemia in chronic kidney disease; I12.9 Hypertensive chronic kidney disease with stage 1 through stage 4 chronic kidney disease, or unspecified chronic kidney disease; I48.91 Unspecified atrial fibrillation; K59.00 Constipation, unspecified; N18.9 Chronic kidney disease, unspecified; E66.9 Obesity, unspecified; N31.9 Neuromuscular dysfunction of bladder, unspecified; T38.3X5A Adverse effect of insulin and oral hypoglycemic [antidiabetic] drugs, initial encounter; Z79.84 Long term (current) use of oral hypoglycemic drugs; Z79.890 Hormone replacement therapy; Z90.710 Acquired absence of both cervix and uterus; Z68.31 Body mass index [BMI] 31.0-31.9, adult
CPT/HCPCS: 36415; 71045; 74176; 76770; 80048; 80053; 81001; 82436; 82570; 82803; 83036; 83605; 83615; 83735; 84100; 84132; 84133; 84300; 84443; 84484; 85025; 85610; 85730; 87015; 87040; 87045; 87046; 87081; 87086; 87205; 87493; 87811; 87899; 93005; 94640; 94762; 96361; 96365; 96366; 96375; 99284; J0612; J0696; J1644; J1938; J2405; J2470; J2543; J3475; J3480; J3490; J7030; J7060; J7120; J7121; A9270; J7609

== ENCOUNTER → 2025-07-21 | Outpatient (CLI) | payer MEDICARE, BC, SELFPAY ==
[2025-07-21 11:31] LABS: Basophils # (Auto) 0.1 Thou/mm3 (0.0-0.2); Basophils % (Auto) 1 % (0-2.5); Eosinophils # (Auto) 0.7 Thou/mm3 (0.0-0.5); Eosinophils % (Auto) 9 % (0-10); Hematocrit 39.0 % (36.0-46.0); Hemoglobin 12.5 g/dL (12.0-16.0); Immature Granulocytes Auto 0.06 Thou/mm3 (0.00-0.00); Lymphocytes # (Auto) 1.3 Thou/mm3 (1.0-4.8); Lymphocytes % (Auto) 19 % (10-50); Mean Corpuscular HGB Conc 32.1 g/dl (31.0-37.0); Mean Corpuscular Hemoglobin 27.1 pg (25.0-35.0); Mean Corpuscular Volume 85 fL (80-100); Monocytes # (Auto) 0.5 Thou/mm3 (0.0-0.8); Monocytes % (Auto) 7 % (0-12); Neutrophils # (Auto) 4.6 Thou/mm3 (1.8-7.7); Neutrophils % (Auto) 64 % (37-80); Nucleated Red Blood Cell # 0.00 Thou/mm3 (0.00-0.00); Nucleated Red Blood Cell % 0 /100 WBC (0); Platelet Count 217 Thou/mm3 (140-440); RDW Standard Deviation 44.8 fL (36.4-46.3); Red Blood Count 4.61 Miln/mm3 (4.00-5.20); White Blood Count 7.2 Thou/mm3 (3.6-11.0)
[2025-07-21 11:41] LABS: Glucose Estimated Average 108 mg/dL (80-131); Hemoglobin A1C 5.4 % Hgb (4.8-6.0)
[2025-07-21 11:47] LABS: Alanine Aminotransferase 12 U/L (10-49); Albumin, Serum 4.2 gm/dL (3.4-4.8); Albumin/Globulin Ratio 1.2 (1.2-2.2); Alkaline Phosphatase 52 U/L (46-116); Anion Gap 12 (7-16); Aspartate Amino Transferase 19 U/L (0-34); BUN/Creatinine Ratio 28 Ratio (12-20); Bilirubin,Total 0.3 mg/dL (0.3-1.2); Blood Urea Nitrogen 17 mg/dL (9-23); Calcium 9.5 mg/dL (8.3-10.6); Calcium (Corrected) 9.5 mg/dL (8.5-10.1); Carbon Dioxide 26.5 mMol/L (20.0-31.0); Cardiac Risk Estimate 5.9 RATIO (3.7-5.6); Chloride 100 mMol/L (98-107); Cholesterol 195 mg/dL (132-200); Creatinine (Component) 0.6 mg/dL (0.6-1.3); Globulin 3.5 gm/dL (2.3-3.5); Glucose 119 mg/dL (74-106); HDL Cholesterol 33 mg/dL (40-60); LDL Cholesterol,Calculated 111 mg/dL (0-130); Osmolality,Calculated 278 (275-295); Potassium 3.9 mMol/L (3.4-5.1); Sodium 138 mMol/L (136-145); Thyroid Stimulating Hormone 4.99 uIU/mL (0.55-4.78); Total Protein 7.7 gm/dL (5.7-8.2); Triglycerides 253 mg/dL (30-150); Uric Acid 7.4 mg/dL (3.1-7.8); eGFR > 60 See Note
[2025-07-21 11:51] LABS: Vitamin B12 936 pg/mL (211-911); Vitamin D 25 Hydroxy Total 37.0 ng/mL (7.3-40.2)
== END | disposition home or self-care (01) ==
LOC: COPL 10:34
PROVIDERS: PCP Internal Medicine; Referring Provider Internal Medicine; Visit Provider Internal Medicine
DX: Z00.00 Encounter for general adult medical examination without abnormal findings (principal); I10 Essential (primary) hypertension; E03.9 Hypothyroidism, unspecified; E78.5 Hyperlipidemia, unspecified
CPT/HCPCS: 36415; 80053; 80061; 81001; 82306; 82607; 83036; 84443; 84550; 85025

== ENCOUNTER → 2025-07-26 | Outpatient (CLI) | payer MEDICARE, BC, SELFPAY ==
[2025-07-26 10:17] LABS: Collection Type, Urine Clean Catch
[2025-07-26 11:05] LABS: Bilirubin,Urine Negative (Negative); Blood,Urine Negative (Negative); Clarity,Urine Clear (Clear/Hazy); Color,Urine Lt-Yellow (Lt Yel-Yel); Culture Indicated,Urine Not Indicated; Glucose, Urine Negative (Negative); Ketones,Urine Negative (Negative); Leukocyte Esterase,Urine Negative (Negative); Nitrite,Urine Negative (Negative); PH,Urine 6.5 (5.0-7.0); Protein,Urine Negative (Neg - Trace); RBC,Urine 1 /hpf (0-3); Specific Gravity,Urine 1.009 (1.001-1.035); Squamous Epithelial Cell,Urine 2 /hpf (0-5); Urobilinogen,Urine Negative mg/dL (0.0-1.0); WBC,Urine 1 /hpf (0-5)
== END | disposition home or self-care (01) ==
LOC: SLDO 10:08
PROVIDERS: Referring Provider Internal Medicine; Visit Provider Internal Medicine
DX: Z00.00 Encounter for general adult medical examination without abnormal findings (principal); I10 Essential (primary) hypertension; E03.9 Hypothyroidism, unspecified; E78.5 Hyperlipidemia, unspecified
CPT/HCPCS: 81001